=== PATIENT | female | born 1945 | race Caucasian/White ===

== ENCOUNTER 2016-07-25 07:47 | Day surgery (SDC) | payer MEDICARE, BC ==
[2016-07-20 15:54] VITALS: BMI 22.8
[~2016-07-25 07:47] MED LIST: LACTATED RINGERS 1,000 ML IV SCH; LIDOCAINE 1% 20 ML VIAL (10MG/ML) FOR IV START INTRADERMA PRN
[2016-07-25] MEDS ORDERED: LACTATED RINGERS 1,000 ML IV ONE (08:01)
[2016-07-25] MEDS ORDERED: LIDOCAINE 1% 20 ML VIAL (10MG/ML) FOR IV START INTRADERMA ONE (08:01)
[2016-07-25 08:07] VITALS: RESP 18; TEMP 98
[2016-07-25] MEDS ORDERED: PROPOFOL 10 MG/ML 20 ML VIAL IV ONE (08:59)
[2016-07-25] MEDS ORDERED: LIDOCAINE 1% INJ 10MG/ML (20 ML MDV) ONE (08:59)
--- NOTE | 2016-07-25 09:31 | P.PCN ---
Date of Procedure: 07/25/16 Procedure(s) Performed: Procedure: Total colonoscopy. Preoperative diagnosis: Screening for neoplasia, patient has history of polyps. Postoperative diagnosis: Left-sided diverticulosis with no evidence of acute diverticulitis, strictures, polyps or cancer. Preparation: HalfLytely prep. Sedation: Was provided by anesthesia. Brief clinical history: The patient is a 70-year-old female who is scheduled for this evaluation for screening for neoplasia because of history of polyps. Her last exam was around 5-1/2 years ago. The patient has no abdominal complaints, bleeding or anemia. Procedure: With the patient on her left lateral decubitus position and after informed consent and adequate sedation, the perianal area was inspected and it did not show any fissures or fistulas. There were no masses felt on digital rectal examination. The Olympus CFQ 160L video colonoscope was then inserted in the rectum in the usual fashion and advanced to the cecum. There were multiple diverticular orifices seen scattered in the sigmoid and left side with no evidence of acute diverticulitis or strictures. No polyps or tumors were seen. The mucosa appeared healthy. I retroflexed endoscope in the rectum before the endoscope was withdrawn. The patient tolerated the procedure well. Plan: The patient was reassured. Discussed dietary measures. She will follow- up with you as planned and I recommended repeat exam in 5 years.
[2016-07-25 09:54] VITALS: BP 129/75; PULSE 76
== END 2016-07-25 10:08 | disposition home or self-care (01) ==
LOC: ORWHC2ENDO 07:47
DX: Z12.11 Encounter for screening for malignant neoplasm of colon (principal); Z86.010 Personal history of colon polyps; K57.30 Diverticulosis of large intestine without perforation or abscess without bleeding; E78.5 Hyperlipidemia, unspecified; F17.200 Nicotine dependence, unspecified, uncomplicated; E07.9 Disorder of thyroid, unspecified; Z88.2 Allergy status to sulfonamides; Z88.8 Allergy status to other drugs, medicaments and biological substances; Z88.1 Allergy status to other antibiotic agents; Z91.041 Radiographic dye allergy status; Z79.899 Other long term (current) drug therapy
CPT/HCPCS: J2001; J2704; G0105

== ENCOUNTER → 2016-08-17 | Outpatient (CLI) | payer MEDICARE, BC ==
--- NOTE | 2016-08-17 12:43 | XR ---
EXAMINATION TYPE: XR bone survey complete DATE OF EXAM: 08/17/2016 12:04 PM COMPARISON: NONE HISTORY: 70-year-old female monoclonal gammopathy TECHNIQUE: 16 views. FINDINGS: Bony calvarium : 2 views of the bony calvarium demonstrate. Small lucencies within the anterior zoe rium suspected to represent prominent venous lakes. Cervical spine: Moderate spondylotic change mid cervical spine with grade 1 retrolisthesis at C4-C5 a nd C5-C6. No suspicious lytic lesion. Thoracic spine: 12 rib-bearing thoracic vertebral bodies. All pedicles are visualized. Moderate spond ylotic change mid to lower thoracic spine. Vertebral body heights are preserved. Lumbar spine: Moderate to advanced multilevel spondylotic change. Vertebral body heights are preserve d and alignment is maintained. CHEST: Lungs are clear. Heart is normal size. No suspicious clavicular or rib lesion identified. PELVIS: Single view of the pelvis demonstrates. Severe left and moderate right hip osteoarthrosis. N o suspicious punched-out lytic lesion. UPPER EXTREMITIES: Two views of the upper extremities. There is right greater than left AC joint oste oarthrosis and some degenerative change of the right glenohumeral joint and bony changes suggestive o f chronic rotator cuff tendinopathy on the right. No suspicious punched-out lytic lesion. LOWER EXTREMITIES: 2 views of the lower extremities. No suspicious punched out lytic lesion. There is bicompartmental osteoarthrosis at both knees with meniscal chondrocalcinosis that could be idiopathi c or reflect CPPD. IMPRESSION: There are some small lucencies within the anterior calvarium suspected to represent prominent venous lakes. No other suspicious lytic lesion seen on the bone survey. Follow-up can be performed.
== END ==
LOC: RADNMMAIN 10:18
PROVIDERS: ATTEND Internal Medicine Rheumatology
DX: D47.2 Monoclonal gammopathy (principal)
CPT/HCPCS: 77075

== ENCOUNTER → 2016-10-17 | Outpatient (CLI) | payer MEDICARE, BC ==
[2016-10-17 11:21] LABS: CH 30.4; CHCM 32.5; HCT 48.4 % (34.0-46.0); HDW 2.35; HGB 15.5 gm/dL (11.4-16.0); MCH 30.2 pg (25.0-35.0); MCV 94.3 fL (80.0-100.0); Mean Platelet Volume 6.8; RBC 5.13 m/uL (3.80-5.40); RDW 13.3 % (11.5-15.5); WBC 14.1 k/uL (3.8-10.6)
[2016-10-17 11:34] LABS: ALT 37 U/L (9-52); AST 20 U/L (14-36); Alkaline Phosphatase 119 U/L (38-126); Anion Gap 9 mmol/L; Blood Urea Nitrogen 18 mg/dL (7-17); Calcium 10.1 mg/dL (8.4-10.2); Carbon Dioxide 27 mmol/L (22-30); Chloride 104 mmol/L (98-107); Glucose 106 mg/dL (74-99); Non-African American GFR(MDRD) >60 (>60 ml/min/1.73 sqM); Potassium 3.9 mmol/L (3.5-5.1); Sodium 140 mmol/L (137-145); Total Bilirubin 0.7 mg/dL (0.2-1.3)
== END | disposition home or self-care (01) ==
LOC: LABWHC1 10:40
PROVIDERS: ATTEND Family Medicine
DX: E03.9 Hypothyroidism, unspecified (principal); R79.89 Other specified abnormal findings of blood chemistry
CPT/HCPCS: 36415; 80053; 83690; 84443; 84484; 85027; 87040

== ENCOUNTER → 2016-10-18 | Outpatient (CLI) | payer MEDICARE, BC ==
--- NOTE | 2016-10-18 15:09 | NM ---
EXAMINATION TYPE: NM bone 3 phase DATE OF EXAM: 10/18/2016 2:52 PM COMPARISON: NONE HISTORY: Monoclonal gammopathy. Triple phase bone scintigraphy was performed following the injection of27.5 mCi Tc 99m MDP. Immediat e images and 3.5 hours post injection images acquired. FINDINGS: Blood pool images are normal. Delayed images show increased uptake in the S1 vertebral body . There is diffuse increased uptake about the left hip and to a lesser extent the right hip. No other definite focal lesion is seen. IMPRESSION: 1. ABNORMAL ACTIVITY IN THE S1 VERTEBRAL BODY. 2. DEGENERATIVE ACTIVITY ABOUT THE HIPS, WORSE ON THE LEFT)
== END ==
LOC: RADNMMAIN 10:14
PROVIDERS: ATTEND Family Medicine
DX: M16.0 Bilateral primary osteoarthritis of hip (principal)
CPT/HCPCS: 78315; A9503

== ENCOUNTER → 2016-11-04 | Outpatient (CLI) | payer MEDICARE, BC ==
[2016-11-04 10:36] LABS: Basophils # (A) 0.1 k/uL (0-0.2); Basophils % (A) 0 %; CH 31.1; CHCM 33.8; Eosinophils # (A) 0.2 k/uL (0-0.7); Eosinophils % (A) 2 %; HCT 42.9 % (34.0-46.0); HDW 2.39; HGB 14.5 gm/dL (11.4-16.0); Luc # (Auto) 0.22; Luc % (Auto) 2; Lymphocytes % (A) 10 %; MCH 31.2 pg (25.0-35.0); MCHC 33.7 g/dL (31.0-37.0); MCV 92.5 fL (80.0-100.0); Mean Platelet Volume 6.7; Monocytes # (A) 0.4 k/uL (0-1.0); Monocytes % (A) 4 %; Neutrophils # (A) 8.8 k/uL (1.3-7.7); Neutrophils % (A) 83 %; RBC 4.64 m/uL (3.80-5.40); WBC 10.7 k/uL (3.8-10.6)
[2016-11-04 10:47] LABS: Blood Urea Nitrogen 12 mg/dL (7-17); Non-African American GFR(MDRD) >60 (>60 ml/min/1.73 sqM)
[2016-11-04 11:43] LABS: Erythrocyte Sedimentation Rate 22 mm/hr (0-20)
== END | disposition home or self-care (01) ==
LOC: LABWHC1 09:54
PROVIDERS: ATTEND Family Medicine
DX: M51.9 Unspecified thoracic, thoracolumbar and lumbosacral intervertebral disc disorder (principal); M16.9 Osteoarthritis of hip, unspecified; M85.50 Aneurysmal bone cyst, unspecified site; D72.829 Elevated white blood cell count, unspecified; A49.9 Bacterial infection, unspecified
CPT/HCPCS: 36415; 82565; 84520; 85025; 85652; 86141

== ENCOUNTER → 2016-11-07 | Outpatient (CLI) | payer MEDICARE, BC ==
--- NOTE | 2016-11-07 14:12 | CT ---
EXAMINATION TYPE: CT pelvis w con DATE OF EXAM: 11/07/2016 COMPARISON: Nuclear medicine triple phase bone scan October 18, 2016 HISTORY: Patient complains of low back pain with radiation bilaterally to the hips and legs. Patient also has unresolving infection of unknown location. CT DLP: 427.4 mGycm. Automated exposure control for dose reduction was used. CONTRAST: Performed with IV Contrast, patient injected with 100 mL of Omnipaque 300. FINDINGS: The S1 vertebral body scintigraphic finding of increased osteoblastic activity corresponds to areas o f sclerosis in the S1 vertebral body on the CT.. Is no cortical disruption. There is no associated so ft tissue mass. There is no increased density within the substance of the S1 vertebral body. However, there is CT evidence of generalized osteopenia, and the S1 vertebral body finding is consistent with mild osteopenic compression. The skeletal structures are otherwise unremarkable except for degenerative spine and hip changes. There are widespread nonaneurysmal atherosclerotic calcifications throughout the aortoiliac arterial anatomy. The visualized solid and hollow viscera are unremarkable, except for prominent sigmoid diverticulosis and moderate urinary bladder distention. IMPRESSION: CHANGES SUGGEST OSTEOPENIC COMPRESSION OF THE S1 VERTEBRAL BODY.
== END | disposition home or self-care (01) ==
LOC: RADCTMAIN 11-03 15:12
PROVIDERS: ATTEND Family Medicine
DX: M51.9 Unspecified thoracic, thoracolumbar and lumbosacral intervertebral disc disorder (principal); M16.9 Osteoarthritis of hip, unspecified; M85.80 Other specified disorders of bone density and structure, unspecified site
CPT/HCPCS: 72193; Q9967

== ENCOUNTER → 2017-06-12 | Outpatient (CLI) | payer MEDICARE, BC ==
--- NOTE | 2017-06-12 12:34 | XR ---
EXAMINATION TYPE: XR Hip Limited LT DATE OF EXAM: 06/12/2017 CLINICAL HISTORY: Severe left hip pain and low back pain with left-sided radiculopathy. TECHNIQUE: AP and frogleg views of the left hip are obtained. COMPARISON: None. FINDINGS: There is no acute fracture/dislocation evident in the left hip. There is advanced degenera tive change of the left femoral acetabular joint with beel-lx-[id number] articulation in a cephalad directi on and subchondral opposing surface sclerosis of both the acetabulum and femoral head. Femoral head m aintains a normal rounded contour without collapse. Large protuberant marginal osteophytes project fr om both the acetabular and femur. Osseous mineralization is within normal limits. IMPRESSION: 1. There is no acute fracture or dislocation in the left hip. 2. Extensive advanced arthropathy of the left femoral acetabular joint with [id number] articulation and subchondral sclerosis of both the femoral head and acetabulum without current femoral head colla pse.
--- NOTE | 2017-06-12 12:36 | XR ---
EXAMINATION TYPE: XR lumbar spine 2 or 3V DATE OF EXAM: 06/12/2017 CLINICAL HISTORY: Multiple myeloma with history of back pain and severe left hip pain radiating to th e lower extremity. TECHNIQUE: Frontal and lateral views of the lumbar spine were obtained. COMPARISON: None FINDINGS: There are 5 lumbar type vertebral bodies identified. The lumbar spine shows satisfactory alignment without evidence of acute fracture or dislocation. Moderate multilevel degenerative disc di sease is displayed is anterior osteophytes, intervertebral disc space narrowing, facet arthropathy, a nd endplate sclerosis. These changes are seen throughout the lumbar spine most exaggerated at the tho racolumbar junction and lumbosacral junction. Moderate to severe atherosclerosis is seen of the abdominal aorta. The overlying soft tissue appears unremarkable. Overlying bowel limits evaluation for lytic lesions of the pelvis and sacrum. No gross evidence of lytic lesion within the lumbar vertebrae. IMPRESSION: 1. No acute fracture or dislocation is seen in the lumbar spine. 2. Moderate multilevel degenerative change of the visualized thoracolumbar spine.
== END | disposition home or self-care (01) ==
LOC: RADXRMAIN 11:34
PROVIDERS: ATTEND Internal Medicine Hematology & Oncology
DX: M47.816 Spondylosis without myelopathy or radiculopathy, lumbar region (principal); M12.852 Other specific arthropathies, not elsewhere classified, left hip; M25.852 Other specified joint disorders, left hip; E78.5 Hyperlipidemia, unspecified; D47.2 Monoclonal gammopathy; M85.9 Disorder of bone density and structure, unspecified; M15.0 Primary generalized (osteo)arthritis
CPT/HCPCS: 72100; 73501

== ENCOUNTER → 2017-11-14 | Outpatient (CLI) | payer MEDICARE, BC ==
--- NOTE | 2017-11-16 14:00 | ECHOF ---
Referral Reason:R01.1 Heart Murmur MEASUREMENTS -------- HEIGHT: 157.5 cm WEIGHT: 56.2 kg BP: 110/73 RVIDd: 1.9 cm (< 3.3) IVSd: 0.8 cm (0.6 - 1.1) LVIDd: 3.9 cm (3.9 - 5.3) LVPWd: 0.8 cm (0.6 - 1.1) IVSs: 1.0 cm LVIDs: 2.8 cm LVPWs: 1.1 cm LAESV Index (A-L): 15.35 ml/m Ao Diam: 2.5 cm (2.0 - 3.7) AV Cusp: 1.8 cm (1.5 - 2.6) EPSS: 1.6 cm MV E Jc: 0.63 m/s MV DecT: 318 ms MV A Jc: 0.92 m/s MV E/A Ratio: 0.68 RAP: 5.00 mmHg RVSP: 21.79 mmHg MV EF SLOPE: 78.18 mm/s (70 - 150) MV EXCURSION: 1.43 cm (> 18.000) FINDINGS -------- Sinus rhythm. This was a technically good study. The left ventricular size is normal. Left ventricular wall thickness is normal. Overall left vent ricular systolic function is normal with, an EF between 55 - 60 %. The right ventricle is normal in size and function. Normal LA size by volume 22+/-6 ml/m2. The right atrium is normal in size. There is mild aortic valve sclerosis. There is no evidence of aortic regurgitation. There is no e vidence of aortic stenosis. AOV is possible Bicuspid. The mitral valve leaflets are mildly thickened. Mild mitral regurgitation is present. Trace tricuspid regurgitation present. Right ventricular systolic pressure is normal at < 35 mmHg. There is no evidence of pulmonary hypertension. Trace/mild (physiologic) pulmonic regurgitation. The aortic root size is normal. Normal inferior vena cava with normal inspiratory collapse consistent with estimated right atrial pre ssure of 5 mmHg. There is no pericardial effusion. CONCLUSIONS -------- 1. Sinus rhythm. 2. This was a technically good study. 3. The left ventricular size is normal. 4. Left ventricular wall thickness is normal. 5. Overall left ventricular systolic function is normal with, an EF between 55 - 60 %. 6. Normal LA size by volume 22+/-6 ml/m2. 7. There is mild aortic valve sclerosis. 8. AOV is possible Bicuspid. 9. The mitral valve leaflets are mildly thickened. 10. Mild mitral regurgitation is present. 11. Trace tricuspid regurgitation present. 12. Right ventricular systolic pressure is normal at < 35 mmHg. 13. There is no evidence of pulmonary hypertension. 14. Trace/mild (physiologic) pulmonic regurgitation. 15. The aortic root size is normal. 16. There is no pericardial effusion. PRESS HAND: Marcel Yañez RDCS
== END | disposition home or self-care (01) ==
LOC: RADECHMAIN 12:47
PROVIDERS: ATTEND Family Medicine
DX: I35.8 Other nonrheumatic aortic valve disorders (principal); I34.0 Nonrheumatic mitral (valve) insufficiency
CPT/HCPCS: 93306

== ENCOUNTER → 2017-12-21 | Outpatient (CLI) | payer MEDICARE, BC ==
--- NOTE | 2017-12-21 11:29 | US ---
EXAMINATION TYPE: US venous doppler duplex LE DATE OF EXAM: 12/21/2017 10:51 AM COMPARISON: NONE CLINICAL HISTORY: M79.662 Pain left low leg, M79.661 Pain Right leg. Bilat leg numbness, no h/o dvt SIDE PERFORMED: Bilateral TECHNIQUE: The lower extremity deep venous system is examined utilizing real time linear array sonog franklyn with graded compression, doppler sonography and color-flow sonography. VESSELS IMAGED: External Iliac Vein (EIV) Common Femoral Vein Deep Femoral Vein Greater Saphenous Vein * Femoral Vein Popliteal Vein Small Saphenous Vein * Proximal Calf Veins (* superficial vessels) Grayscale, color doppler, spectral doppler imaging performed of the deep veins of the lower extremiti es. There is normal flow, compressibility, vascular waveforms. Right Leg: Appears negative for DVT today Left Leg: Appears negative for DVT today bilateral venous of legs produced rouleaux flow, which made wall to wall color fill challenging. Macias d to use augment maneuver to obtain color fill. Veins were compressible throughout legs and waveforms of spontaneous flow was detected. tech findings of negative for DVT today but rouleaux flow was present given to voice mail of Itzel at Dr Sands's office. IMPRESSION: 1. No sonographic evidence of deep venous thrombosis within either lower extremity. 2. Rouleaux flow incidentally noted bilaterally that may be an incidental finding however this can be associated with connective tissue disorders, inflammatory disorders and diabetes.
== END | disposition home or self-care (01) ==
LOC: RADUSWWP 10:14
PROVIDERS: ATTEND Internal Medicine Hematology & Oncology
DX: R22.33 Localized swelling, mass and lump, upper limb, bilateral (principal)
CPT/HCPCS: 93970

== ENCOUNTER → 2018-01-03 | Outpatient (CLI) | payer MEDICARE, BC ==
[2018-01-03 11:33] LABS: Anion Gap 3 mmol/L; Blood Urea Nitrogen 14 mg/dL (7-17); Carbon Dioxide 30 mmol/L (22-30); Chloride 105 mmol/L (98-107); Potassium 4.7 mmol/L (3.5-5.1); Sodium 138 mmol/L (137-145)
== END | disposition home or self-care (01) ==
LOC: LABWHC1 10:34
PROVIDERS: ATTEND Internal Medicine Cardiovascular Disease
DX: R60.0 Localized edema (principal)
CPT/HCPCS: 36415; 80051; 82565; 84520

== ENCOUNTER 2018-03-04 23:31 | Emergency (ER) | payer MEDICARE, BC ==
--- NOTE | 2018-03-04 23:54 | ED ---
Extremity Problem HPI - General Chief complaint: Extremity Problem,Nontraumatic Stated complaint: Leg swelling Time Seen by Provider: 03/04/18 23:33 Source: patient Mode of arrival: EMS Limitations: no limitations - History of Present Illness Initial comments: Patient is a 72-year-old female who presents the emergency department today for evaluation of lower extremity edema. Patient reports that she's had edema in her lower extremities since the springtime, usually the left is worse with them the right. She has been evaluated with venous and arterial Dopplers with no acute findings. She reports that the edema waxes and wanes. She reports that today she noticed that her left knee appear to be swollen and she felt that she had worsening swelling in her left leg which prompted her to come to the ER for further evaluation. Patient has no known history of DVT or PE in the past. She is still smoker. She does report she had some mild wheezing earlier in the night but no chest pressure, pain, palpitations. She had no persistent shortness of breath. She has no complaints of shortness of breath upon arrival. - Related Data Home Medications Medication Instructions Recorded Confirmed Atorvastatin [Lipitor] 20 mg PO HS 01/11/14 07/25/16 Levothyroxine Sodium [Synthroid] 75 mcg PO DAILY 01/11/14 07/25/16 Calcium Carbonate/Vitamin D3 1 tab PO DAILY 02/21/16 07/25/16 [Os-Kenny 500-Vit D3 200 Caplet] Cholecalciferol [Vitamin D3] 5,000 unit PO DAILY 02/21/16 07/25/16 Glucosamine/Chondr Barillas A Sod [Osteo 1 tab PO DAILY 02/21/16 07/25/16 Bi-Flex Caplet] Loratadine [Claritin] 10 mg PO DAILY PRN 02/21/16 07/25/16 Meclizine [Antivert] 25 mg PO TID PRN 02/21/16 07/25/16 Celecoxib [CeleBREX] 200 mg PO DAILY 07/20/16 07/25/16 Cyclobenzaprine [Flexeril] 10 mg PO HS PRN 07/20/16 07/25/16 Diclofenac Sodium Gel [Voltaren 1 applic TOPICAL DAILY 07/20/16 07/25/16 Gel] Allergies Allergy/AdvReac Type Severity Reaction Status Date / Time cephalexin [From Keflex] Allergy Unknown Verified 03/04/18 23:49 Iodinated Contrast- Oral and Allergy Nausea & Verified 03/04/18 23:49 IV Dye Vomiting, [Iodinated Contrast Media - headache IV Dye] Latex, Natural Rubber Allergy Unknown Verified 03/04/18 23:49 sulfamethoxazole Allergy Rash/Hives Verified 03/04/18 23:49 [From Bactrim] trimethoprim [From Bactrim] Allergy Rash/Hives Verified 03/04/18 23:49 ciprofloxacin [From Cipro] AdvReac severe Verified 03/04/18 23:49 constipation methocarbamol [From Robaxin] AdvReac dizzy Verified 03/04/18 23:49 Review of Systems ROS Statement: Those systems with pertinent positive or pertinent negative responses have been documented in the HPI. ROS Other: All systems not noted in ROS Statement are negative. Past Medical History Past Medical History: Hyperlipidemia, Rheumatoid Arthritis (RA), Thyroid Disorder Additional Past Medical History / Comment(s): osteoporosis History of Any Multi-Drug Resistant Organisms: None Reported Past Surgical History: Appendectomy, Hysterectomy Past Anesthesia/Blood Transfusion Reactions: Motion Sickness Past Psychological History: No Psychological Hx Reported Smoking Status: Current every day smoker Past Alcohol Use History: None Reported Past Drug Use History: None Reported - Past Family History Mother Family Medical History: Cancer Father Family Medical History: Cancer General Exam - General Exam Comments Initial Comments: GENERAL: Chronically ill-appearing with skin and nail changes consistent with tobacco abuse HENT: Normocephalic, Atraumatic. EYES: PERRL PULMONARY: Unlabored respirations. Good breath sounds bilaterally. No audible rales rhonchi or wheezing was noted. CARDIOVASCULAR: There is a regular rate and rhythm without any murmurs gallops or rubs. ABDOMEN: Soft and nontender with normal bowel sounds. SKIN: Skin is clear with no lesions or rashes and otherwise unremarkable. NEUROLOGIC: Patient is alert and oriented x3. Cranial nerves II through XII are grossly intact. Motor and sensory are also intact. Normal speech, volume and content. Symmetrical smile. MUSCULOSKELETAL: Normal extremities with adequate strength and full range of motion. Bilateral lower extremities with 1+ pretibial pitting edema, left knee effusion , no erythema or warmth, no evidence of septic joint LYMPHATICS: No significant lymphadenopathy is noted PSYCHIATRIC: Normal psychiatric evaluation. Limitations: no limitations Limitations: no limitations Course Vital Signs 03/04/18 23:41 Temperature 98.7 F Pulse Rate 87 Respiratory 18 Rate Blood Pressure 134/65 O2 Sat by Pulse 99 Oximetry Medical Decision Making - Medical Decision Making The patient was seen and evaluated, history was obtained from the patient Physical exam with bilateral lower extremity edema, left maybe slightly more than the right Left knee effusion no evidence of septic joint, full range of motion without pain Patient very anxious because she has an upcoming left hip surgery wanted to be evaluated Labs and imaging ordered Labs and no significant abnormalities noted Venous Dopplers with no evidence of acute DVT Results were discussed with patient expresses relief. All questions pertaining to care were answered the best my ability. Patient was advised to follow-up with her primary care physician as well as her orthopedic surgeon for reevaluation. Return parameters were discussed. Patient was discharged home in stable condition. - Lab Data Result diagrams: 03/05/18 00:15 03/05/18 00:15 Lab Results 03/05/18 03/05/18 03/05/18 Range/Units 00:15 00:15 00:15 WBC 9.9 (3.8-10.6) k/uL RBC 4.67 (3.80-5.40) m/uL Hgb 14.2 (11.4-16.0) gm/dL Hct 42.8 (34.0-46.0) % MCV 91.6 (80.0-100.0) fL MCH 30.4 (25.0-35.0) pg MCHC 33.2 (31.0-37.0) g/dL RDW 12.8 (11.5-15.5) % Plt Count 285 (150-450) k/uL Neutrophils % 77 % Lymphocytes % 14 % Monocytes % 5 % Eosinophils % 2 % Basophils % 1 % Neutrophils # 7.6 (1.3-7.7) k/uL Lymphocytes # 1.4 (1.0-4.8) k/uL Monocytes # 0.5 (0-1.0) k/uL Eosinophils # 0.2 (0-0.7) k/uL Basophils # 0.1 (0-0.2) k/uL PT (9.0-12.0) sec INR (<1.2) APTT (22.0-30.0) sec D-Dimer (<0.60) mg/L FEU Sodium 136 L (137-145) mmol/L Potassium 4.1 (3.5-5.1) mmol/L Chloride 109 H (98-107) mmol/L Carbon Dioxide 26 (22-30) mmol/L Anion Gap 1 mmol/L BUN 21 H (7-17) mg/dL Creatinine 0.65 (0.52-1.04) mg/dL Est GFR (CKD-EPI)AfAm >90 (>60 ml/min/1.73 sqM) Est GFR (CKD-EPI)NonAf 88 (>60 ml/min/1.73 sqM) Glucose 99 (74-99) mg/dL Calcium 9.4 (8.4-10.2) mg/dL Magnesium 1.8 (1.6-2.3) mg/dL Total Bilirubin 0.3 (0.2-1.3) mg/dL AST 25 (14-36) U/L ALT 29 (9-52) U/L Alkaline Phosphatase 82 (38-126) U/L Total Creatine Kinase 113 (30-135) U/L CK-MB (CK-2) 5.2 H (0.0-2.4) ng/mL CK-MB (CK-2) Rel Index 4.6 Troponin I 0.019 (0.000-0.034) ng/mL NT-Pro-B Natriuret Pep pg/mL Total Protein 4.7 L (6.3-8.2) g/dL Albumin 2.5 L (3.5-5.0) g/dL 03/05/18 03/05/18 Range/Units 00:15 00:15 WBC (3.8-10.6) k/uL RBC (3.80-5.40) m/uL Hgb (11.4-16.0) gm/dL Hct (34.0-46.0) % MCV (80.0-100.0) fL MCH (25.0-35.0) pg MCHC (31.0-37.0) g/dL RDW (11.5-15.5) % Plt Count (150-450) k/uL Neutrophils % % Lymphocytes % % Monocytes % % Eosinophils % % Basophils % % Neutrophils # (1.3-7.7) k/uL Lymphocytes # (1.0-4.8) k/uL Monocytes # (0-1.0) k/uL Eosinophils # (0-0.7) k/uL Basophils # (0-0.2) k/uL PT 9.5 (9.0-12.0) sec INR 1.0 (<1.2) APTT 20.8 L (22.0-30.0) sec D-Dimer 0.59 (<0.60) mg/L FEU Sodium (137-145) mmol/L Potassium (3.5-5.1) mmol/L Chloride (98-107) mmol/L Carbon Dioxide (22-30) mmol/L Anion Gap mmol/L BUN (7-17) mg/dL Creatinine (0.52-1.04) mg/dL Est GFR (CKD-EPI)AfAm (>60 ml/min/1.73 sqM) Est GFR (CKD-EPI)NonAf (>60 ml/min/1.73 sqM) Glucose (74-99) mg/dL Calcium (8.4-10.2) mg/dL Magnesium (1.6-2.3) mg/dL Total Bilirubin (0.2-1.3) mg/dL AST (14-36) U/L ALT (9-52) U/L Alkaline Phosphatase (38-126) U/L Total Creatine Kinase (30-135) U/L CK-MB (CK-2) (0.0-2.4) ng/mL CK-MB (CK-2) Rel Index Troponin I (0.000-0.034) ng/mL NT-Pro-B Natriuret Pep 274 pg/mL Total Protein (6.3-8.2) g/dL Albumin (3.5-5.0) g/dL Disposition Clinical Impression: Lower extremity edema Disposition: HOME SELF-CARE Condition: Good Instructions: Leg Edema (ED) Is patient prescribed a controlled substance at d/c from ED?: No Referrals: Alycia Salas MD [Primary Care Provider] - 1-2 days
[2018-03-05 00:30] LABS: Basophils # (A) 0.1 k/uL (0-0.2); Basophils % (A) 1 %; Eosinophils # (A) 0.2 k/uL (0-0.7); Eosinophils % (A) 2 %; HCT 42.8 % (34.0-46.0); HGB 14.2 gm/dL (11.4-16.0); Lymphocytes # (A) 1.4 k/uL (1.0-4.8); Lymphocytes % (A) 14 %; MCH 30.4 pg (25.0-35.0); MCHC 33.2 g/dL (31.0-37.0); MCV 91.6 fL (80.0-100.0); Mean Platelet Volume 7.2; Monocytes # (A) 0.5 k/uL (0-1.0); Monocytes % (A) 5 %; Neutrophils # (A) 7.6 k/uL (1.3-7.7); Neutrophils % (A) 77 %; Platelet Count 285 k/uL (150-450); RBC 4.67 m/uL (3.80-5.40); RDW 12.8 % (11.5-15.5); WBC 9.9 k/uL (3.8-10.6)
[2018-03-05 00:40] LABS: ALT 29 U/L (9-52); AST 25 U/L (14-36); Albumin 2.5 g/dL (3.5-5.0); Alkaline Phosphatase 82 U/L (38-126); Anion Gap 1 mmol/L; Blood Urea Nitrogen 21 mg/dL (7-17); Calcium 9.4 mg/dL (8.4-10.2); Carbon Dioxide 26 mmol/L (22-30); Chloride 109 mmol/L (98-107); Glucose 99 mg/dL (74-99); Magnesium 1.8 mg/dL (1.6-2.3); Potassium 4.1 mmol/L (3.5-5.1); Sodium 136 mmol/L (137-145); Total Bilirubin 0.3 mg/dL (0.2-1.3); Total Protein 4.7 g/dL (6.3-8.2)
[2018-03-05 00:51] LABS: D-Dimer 0.59 mg/L FEU (<0.60); Prothrombin Time 9.5 sec (9.0-12.0)
[2018-03-05 01:03] LABS: Creatine Kinase MB 5.2 ng/mL (0.0-2.4); Troponin I 0.019 ng/mL (0.000-0.034)
--- NOTE | 2018-03-05 01:05 | US ---
EXAMINATION TYPE: US venous doppler duplex LE BI DATE OF EXAM: 03/04/2018 11:51 PM COMPARISON: NONE CLINICAL HISTORY: Pain. Edema SIDE PERFORMED: Bilateral TECHNIQUE: The lower extremity deep venous system is examined utilizing real time linear array sonog franklyn with graded compression, doppler sonography and color-flow sonography. VESSELS IMAGED: External Iliac Vein (EIV) Common Femoral Vein Deep Femoral Vein Greater Saphenous Vein * Femoral Vein Popliteal Vein Small Saphenous Vein * Proximal Calf Veins (* superficial vessels) Right Leg: Negative for DVT Left Leg: Negative for DVT No evidence of DVT bilateral legs. IMPRESSION: No evidence of deep venous thrombosis.
[2018-03-05 01:20] LABS: Partial Thromboplastin Time 20.8 sec (22.0-30.0)
--- NOTE | 2018-03-05 01:37 | XR ---
EXAMINATION TYPE: XR chest 2V DATE OF EXAM: 03/05/2018 COMPARISON: 01/11/2014 HISTORY: Leg edema. Chest pain TECHNIQUE: Frontal and lateral views of the chest are obtained. FINDINGS: Heart and mediastinum are normal. Lungs are clear. Diaphragm is normal. Bony thorax is int act. IMPRESSION: No active cardiopulmonary disease. Normal heart. No adverse change.
[2018-03-05 02:06] VITALS: BP 113/57; PULSE 100; RESP 16; TEMP 97.7
== END 2018-03-05 02:37 | disposition home or self-care (01) ==
LOC: EC 23:31
DX: R60.0 Localized edema (principal); M25.462 Effusion, left knee; E78.5 Hyperlipidemia, unspecified; M06.9 Rheumatoid arthritis, unspecified; E07.9 Disorder of thyroid, unspecified; F17.200 Nicotine dependence, unspecified, uncomplicated; Z90.49 Acquired absence of other specified parts of digestive tract; Z90.710 Acquired absence of both cervix and uterus; Z79.1 Long term (current) use of non-steroidal anti-inflammatories (NSAID); Z79.899 Other long term (current) drug therapy; Z88.1 Allergy status to other antibiotic agents; Z88.2 Allergy status to sulfonamides; Z88.8 Allergy status to other drugs, medicaments and biological substances; Z91.040 Latex allergy status; Z91.041 Radiographic dye allergy status
CPT/HCPCS: 36415; 71046; 80053; 82550; 82553; 83735; 83880; 84484; 85025; 85379; 85610; 85730; 93005; 93970; 99284

== ENCOUNTER → 2018-04-01 | Outpatient (CLI) | payer MEDICARE, BC ==
[2018-04-01 11:52] LABS: Appearance,Urine Clear (Clear); Bacteria,Urine Occasional /hpf; Bilirubin,Urine Negative (Negative); Blood,Urine Small (Negative); Color,Urine Light Yellow; Glucose,Urine (UA) Negative (Negative); Ketones,Urine Negative (Negative); Leukocyte Esterase,Urine Negative (Negative); Nitrite,Urine Negative (Negative); Protein,Urine 2+ (Negative); RBC,Urine 3 /hpf (0-5); Specific Gravity,Urine 1.005 (1.001-1.035); Squamous Epithelial Cell,Urine 2 /hpf (0-4); Urobilinogen,Urine <2.0 mg/dL (<2.0)
[2018-04-01 12:06] LABS: HCT 45.5 % (34.0-46.0); HGB 15.2 gm/dL (11.4-16.0); MCH 30.9 pg (25.0-35.0); MCHC 33.5 g/dL (31.0-37.0); MCV 92.3 fL (80.0-100.0); Mean Platelet Volume 7.7; Platelet Count 311 k/uL (150-450); RBC 4.93 m/uL (3.80-5.40); RDW 13.2 % (11.5-15.5); WBC 10.9 k/uL (3.8-10.6)
[2018-04-01 16:21] LABS: Vitamin D 25 Hydroxy 26.7 ng/mL (30.0-100.0)
[2018-04-01 16:25] LABS: Iron Saturation 29.03 (12.00-45.00)
[2018-04-01 16:35] LABS: Albumin 3.1 g/dL (3.80-4.90); Albumin/Globulin Ratio 2.21 (1.20-2.10); Anion Gap 3.9 mmol/L (4.00-12.00); Calcium 9.3 mg/dL (8.7-10.3); Carbon Dioxide 30.1 mmol/L (21.6-31.8); Globulin 1.4 g/dL (2.1-3.7); Magnesium 1.6 mg/dL (1.5-2.4); Phosphorus 3.8 mg/dL (2.4-5.1); Potassium 4.3 mmol/L (3.5-5.5); Total Bilirubin 0.3 mg/dL (0.3-1.2); Total Protein 4.5 g/dL (6.2-8.2); Uric Acid 6.2 mg/dL (2.9-7.7)
[2018-04-01 18:10] LABS: Parathyroid Hormone Intact 10.8 pg/mL (14.0-72.0)
[2018-04-01 18:18] LABS: DNA Double-Stranded NEGATIVE (NEGATIVE)
[2018-04-01 19:08] LABS: Hepatitis A Antibody IgM Non-Reactive (Non-Reactive); Hepatitis B Core IgM Non-Reactive (Non-Reactive)
[2018-04-01 19:09] LABS: Total Volume 24 Hour,Urine 2000 mL
[2018-04-01 19:37] LABS: Creatinine,Urine Random 16.1 mg/dL
[2018-04-01 19:41] LABS: Total Protein,Urine Random 199.1 mg/dL (0.0-13.5)
[2018-04-02 14:24] LABS: C-ANCA <1:20 Titer (<1:20); P-ANCA <1:20 Titer (<1:20)
== END ==
LOC: LABWHC1 10:32
PROVIDERS: ATTEND Internal Medicine
DX: D64.9 Anemia, unspecified (principal); E55.9 Vitamin D deficiency, unspecified; E21.3 Hyperparathyroidism, unspecified; R53.83 Other fatigue; R80.9 Proteinuria, unspecified
CPT/HCPCS: 36415; 80053; 80074; 81001; 81050; 82306; 82570; 82728; 83516; 83540; 83550; 83735; 83970; 84100; 84156; 84550; 85027; 86038; 86160; 86162; 86225; 86255; 86334

== ENCOUNTER 2018-04-12 12:52 | Inpatient (IN) | payer MEDICARE, BC ==
[2018-04-12 14:47] LABS: Basophils % (A) 0 %; Eosinophils # (A) 0.2 k/uL (0-0.7); Eosinophils % (A) 1 %; HCT 47.8 % (34.0-46.0); HGB 16.4 gm/dL (11.4-16.0); Lymphocytes # (A) 1.9 k/uL (1.0-4.8); Lymphocytes % (A) 14 %; MCH 31.6 pg (25.0-35.0); MCHC 34.2 g/dL (31.0-37.0); MCV 92.3 fL (80.0-100.0); Mean Platelet Volume 6.8; Monocytes # (A) 0.6 k/uL (0-1.0); Monocytes % (A) 5 %; Neutrophils # (A) 11.2 k/uL (1.3-7.7); Neutrophils % (A) 79 %; Platelet Count 305 k/uL (150-450); RBC 5.18 m/uL (3.80-5.40); RDW 13.2 % (11.5-15.5); WBC 14.1 k/uL (3.8-10.6)
[2018-04-12] MEDS ORDERED: SODIUM CHLORIDE 0.9% 500 ML 500 ML IV STA (14:47)
[2018-04-12 14:57] LABS: ALT 47 U/L (9-52); AST 28 U/L (14-36); Albumin 2.5 g/dL (3.5-5.0); Alkaline Phosphatase 88 U/L (38-126); Anion Gap 1 mmol/L; Blood Urea Nitrogen 21 mg/dL (7-17); Calcium 8.8 mg/dL (8.4-10.2); Carbon Dioxide 30 mmol/L (22-30); Chloride 105 mmol/L (98-107); Glucose 105 mg/dL (74-99); Potassium 3.9 mmol/L (3.5-5.1); Sodium 136 mmol/L (137-145); Total Bilirubin 0.3 mg/dL (0.2-1.3); Total Protein 4.9 g/dL (6.3-8.2)
--- NOTE | 2018-04-12 15:02 | XR ---
EXAMINATION TYPE: XR chest 2V DATE OF EXAM: 04/12/2018 COMPARISON: Chest x-ray March 05, 2018. HISTORY: History of hypotension with bilateral leg swelling TECHNIQUE: Frontal and lateral views of the chest are obtained. FINDINGS: Clothing artifact overlies the bilateral supraclavicular region. Slightly elevated left hem idiaphragm is redemonstrated. There is no focal air space opacity, pleural effusion, or pneumothorax seen. The cardiac silhouette size is within normal limits. The osseous structures are intact. IMPRESSION: No acute cardiopulmonary process. No significant change from prior.
[2018-04-12 15:04] LABS: INR 0.9 (<1.2); Prothrombin Time 9.4 sec (9.0-12.0)
[2018-04-12 15:14] LABS: Creatine Kinase MB 3.7 ng/mL (0.0-2.4)
[2018-04-12 15:20] LABS: Partial Thromboplastin Time 19.7 sec (22.0-30.0)
[2018-04-12 15:21] LABS: Troponin I 0.055 ng/mL (0.000-0.034)
--- NOTE | 2018-04-12 15:32 | ED ---
General Adult HPI <JacksonAiden - Last Filed: 04/12/18 16:17> - General Source: patient, RN notes reviewed Mode of arrival: wheelchair Limitations: no limitations <Dc Ann - Last Filed: 04/12/18 16:26> - General Chief complaint: Extremity Problem,Nontraumatic Stated complaint: bilat leg swelling Time Seen by Provider: 04/12/18 14:00 - History of Present Illness Initial comments: Patient 72-year-old female presents emergency room today with a chief complaint of right lateral leg swelling. Patient does admit that she has been having leg swelling since September 2017. She does admit that it seems to be getting worse. She states been consistent over the last month. Patient does move the family physician earlier today and was advised come here to the emergency room for further evaluation. They recommended ultrasound of the kidneys. Patient does admit that over the last 3 days she's had some symptoms of diarrhea. She states it seems to be better today. Patient states that she was worried about being dehydrated. Denies any other complaints or symptoms currently. Patient denies any recent fever, chills, shortness of breath, chest pain, back pain, nausea or vomiting, numbness or tingling, dysuria or hematuria, constipation, headaches or visual changes, or any other complaints. (Dc Ann) - Related Data Home Medications Medication Instructions Recorded Confirmed Levothyroxine Sodium [Synthroid] 75 mcg PO DAILY 01/11/14 04/12/18 Cholecalciferol [Vitamin D3] 5,000 unit PO MOWEFR 02/21/16 04/12/18 Glucosamine/Chondr Barillas A Sod [Osteo 1 tab PO MOWEFR 02/21/16 04/12/18 Bi-Flex Caplet] Loratadine [Claritin] 10 mg PO DAILY PRN 02/21/16 04/12/18 Meclizine [Antivert] 25 mg PO TID PRN 02/21/16 04/12/18 Diclofenac Sodium Gel [Voltaren 1 applic TOPICAL DAILY 07/20/16 04/12/18 Gel] Acetaminophen Tab [Tylenol Tab] 500 - 1,000 mg PO Q6HR PRN 04/12/18 04/12/18 Atorvastatin [Lipitor] 40 mg PO HS 04/12/18 04/12/18 Furosemide [Lasix] 20 mg PO BID 04/12/18 04/12/18 Meloxicam [Mobic] 7.5 mg PO DAILY 04/12/18 04/12/18 Potassium Chloride [Klor-Con 10] 20 meq PO DAILY 04/12/18 04/12/18 Allergies Allergy/AdvReac Type Severity Reaction Status Date / Time cephalexin [From Keflex] Allergy Unknown Verified 04/12/18 14:22 Iodinated Contrast- Oral and Allergy Nausea & Verified 04/12/18 14:22 IV Dye Vomiting, [Iodinated Contrast Media - headache IV Dye] Latex, Natural Rubber Allergy Unknown Verified 04/12/18 14:22 sulfamethoxazole Allergy Rash/Hives Verified 04/12/18 14:22 [From Bactrim] trimethoprim [From Bactrim] Allergy Rash/Hives Verified 04/12/18 14:22 cefdinir AdvReac Unknown Verified 04/12/18 14:22 ciprofloxacin [From Cipro] AdvReac severe Verified 04/12/18 14:22 constipation methocarbamol [From Robaxin] AdvReac dizzy Verified 04/12/18 14:22 Sulfa (Sulfonamide AdvReac Unknown Verified 04/12/18 14:22 Antibiotics) Review of Systems ROS Other: All systems not noted in ROS Statement are negative. <Aiden Paz - Last Filed: 04/12/18 16:17> ROS Other: All systems not noted in ROS Statement are negative. <Dc Ann - Last Filed: 04/12/18 16:26> ROS Statement: Those systems with pertinent positive or pertinent negative responses have been documented in the HPI. Past Medical History Past Medical History: Cancer, Hyperlipidemia, Osteoarthritis (OA), Thyroid Disorder Additional Past Medical History / Comment(s): osteoporosis, MULTIPLE MYELOMA History of Any Multi-Drug Resistant Organisms: None Reported Past Surgical History: Appendectomy, Hysterectomy Past Anesthesia/Blood Transfusion Reactions: Motion Sickness Past Psychological History: No Psychological Hx Reported Smoking Status: Current every day smoker Past Alcohol Use History: None Reported Past Drug Use History: None Reported - Past Family History Mother Family Medical History: Cancer Father Family Medical History: Cancer <Dc Ann - Last Filed: 04/12/18 16:26> General Exam <Aiden Paz - Last Filed: 04/12/18 16:17> Limitations: no limitations <Dc Ann - Last Filed: 04/12/18 16:26> - General Exam Comments Initial Comments: General: The patient is awake and alert, in no distress, and does not appear acutely ill. Eye: Pupils are equal, round and reactive to light. Extra-ocular movements are intact. No nystagmus. There is normal conjunctiva bilaterally. No signs of icterus. Ears, nose, mouth and throat: There are moist mucous membranes and no oral lesions. Neck: The neck is supple, there is no tenderness or JVD. Cardiovascular: There is a regular rate and rhythm. No murmur, rub or gallop is appreciated. Respiratory: Lungs are clear to auscultation, respirations are non-labored, breath sounds are equal. No wheezes, stridor, rales, or rhonchi. Gastrointestinal: Soft, non-distended, non-tender abdomen without masses or organomegaly noted. There is no rebound or guarding present. No CVA tenderness. Musculoskeletal: Normal ROM, no tenderness. Sensation intact. Strength 5/5. Pulses equal bilaterally 2+. 2+ pitting edema bilaterally. Neurological: A&O x 3. CN II-XII intact, There are no obvious motor or sensory deficits. Coordination appears grossly intact. Speech is normal. Skin: Skin is warm and dry and no rashes or lesions are noted. Psychiatric: Cooperative, appropriate mood & affect, normal judgment. (Dc Ann) Course <Aiden Paz - Last Filed: 04/12/18 16:17> <Dc Ann - Last Filed: 04/12/18 16:26> Vital Signs 04/12/18 13:30 Temperature 98.3 F Pulse Rate 95 Respiratory 16 Rate Blood Pressure 118/76 O2 Sat by Pulse 99 Oximetry - Reevaluation(s) Reevaluation #1: 04/12/18 16:17 PA supervision: I proceeded [id number] evaluation the patient including a brief history and physical patient having peripheral edema for the past 5 months she was seen in her doctor's office today and sent here for further evaluation was found on evaluation in addition to the peripheral edema no definite calf tenderness. She did have elevated troponin however. She will be admitted with cardiology consultation due to her history of multiple myeloma Dr. Sands will be consulted also. I did discuss case Dr. Pedraza (Aiden Paz) EKG Findings - EKG Comments: EKG Findings:: EKG performed at 1440: Shows normal sinus rhythm at 83 beats per minute. GA interval 128. QRS 80. QT/QTC 378/444. No acute changed. <Dc nAn - Last Filed: 04/12/18 16:26> Medical Decision Making - Lab Data Result diagrams: 04/12/18 14:20 04/12/18 14:20 <Aiden Paz - Last Filed: 04/12/18 16:17> - Lab Data Result diagrams: 04/12/18 14:20 04/12/18 14:20 <Dc Ann - Last Filed: 04/12/18 16:26> - Medical Decision Making Patient's labs been reviewed does show 14,000 white count. BNP 650. Troponin mildly elevated at 0.055. EKG showing no acute changes. Patient's chest x-ray unremarkable. Ultrasound of the kidneys and bladder shows a right renal cyst. Patient will be admitted to the hospital with consult to Dr. tsai for history of multiple myeloma and consult cardiology. (Dc Ann) - Lab Data Lab Results 04/12/18 04/12/18 04/12/18 Range/Units 14:20 14:20 14:20 WBC 14.1 H (3.8-10.6) k/uL RBC 5.18 (3.80-5.40) m/uL Hgb 16.4 H (11.4-16.0) gm/dL Hct 47.8 H (34.0-46.0) % MCV 92.3 (80.0-100.0) fL MCH 31.6 (25.0-35.0) pg MCHC 34.2 (31.0-37.0) g/dL RDW 13.2 (11.5-15.5) % Plt Count 305 (150-450) k/uL Neutrophils % 79 % Lymphocytes % 14 % Monocytes % 5 % Eosinophils % 1 % Basophils % 0 % Neutrophils # 11.2 H (1.3-7.7) k/uL Lymphocytes # 1.9 (1.0-4.8) k/uL Monocytes # 0.6 (0-1.0) k/uL Eosinophils # 0.2 (0-0.7) k/uL Basophils # 0.0 (0-0.2) k/uL PT (9.0-12.0) sec INR (<1.2) APTT (22.0-30.0) sec Sodium 136 L (137-145) mmol/L Potassium 3.9 (3.5-5.1) mmol/L Chloride 105 (98-107) mmol/L Carbon Dioxide 30 (22-30) mmol/L Anion Gap 1 mmol/L BUN 21 H (7-17) mg/dL Creatinine 0.74 (0.52-1.04) mg/dL Est GFR (CKD-EPI)AfAm >90 (>60 ml/min/1.73 sqM) Est GFR (CKD-EPI)NonAf 81 (>60 ml/min/1.73 sqM) Glucose 105 H (74-99) mg/dL Calcium 8.8 (8.4-10.2) mg/dL Total Bilirubin 0.3 (0.2-1.3) mg/dL AST 28 (14-36) U/L ALT 47 (9-52) U/L Alkaline Phosphatase 88 (38-126) U/L Total Creatine Kinase 78 (30-135) U/L CK-MB (CK-2) 3.7 H (0.0-2.4) ng/mL CK-MB (CK-2) Rel Index 4.7 Troponin I 0.055 H* (0.000-0.034) ng/mL NT-Pro-B Natriuret Pep pg/mL Total Protein 4.9 L (6.3-8.2) g/dL Albumin 2.5 L (3.5-5.0) g/dL Urine Color Urine Appearance (Clear) Urine pH (5.0-8.0) Ur Specific [place] (1.001-1.035) Urine Protein (Negative) Urine Glucose (UA) (Negative) Urine Ketones (Negative) Urine Blood (Negative) Urine Nitrite (Negative) Urine Bilirubin (Negative) Urine Urobilinogen (<2.0) mg/dL Ur Leukocyte Esterase (Negative) Urine RBC (0-5) /hpf Urine WBC (0-5) /hpf Ur Squamous Epith Cells (0-4) /hpf 04/12/18 04/12/18 04/12/18 Range/Units 14:20 14:20 15:21 WBC (3.8-10.6) k/uL RBC (3.80-5.40) m/uL Hgb (11.4-16.0) gm/dL Hct (34.0-46.0) % MCV (80.0-100.0) fL MCH (25.0-35.0) pg MCHC (31.0-37.0) g/dL RDW (11.5-15.5) % Plt Count (150-450) k/uL Neutrophils % % Lymphocytes % % Monocytes % % Eosinophils % % Basophils % % Neutrophils # (1.3-7.7) k/uL Lymphocytes # (1.0-4.8) k/uL Monocytes # (0-1.0) k/uL Eosinophils # (0-0.7) k/uL Basophils # (0-0.2) k/uL PT 9.4 (9.0-12.0) sec INR 0.9 (<1.2) APTT 19.7 L (22.0-30.0) sec Sodium (137-145) mmol/L Potassium (3.5-5.1) mmol/L Chloride (98-107) mmol/L Carbon Dioxide (22-30) mmol/L Anion Gap mmol/L BUN (7-17) mg/dL Creatinine (0.52-1.04) mg/dL Est GFR (CKD-EPI)AfAm (>60 ml/min/1.73 sqM) Est GFR (CKD-EPI)NonAf (>60 ml/min/1.73 sqM) Glucose (74-99) mg/dL Calcium (8.4-10.2) mg/dL Total Bilirubin (0.2-1.3) mg/dL AST (14-36) U/L ALT (9-52) U/L Alkaline Phosphatase (38-126) U/L Total Creatine Kinase (30-135) U/L CK-MB (CK-2) (0.0-2.4) ng/mL CK-MB (CK-2) Rel Index Troponin I (0.000-0.034) ng/mL NT-Pro-B Natriuret Pep 651 pg/mL Total Protein (6.3-8.2) g/dL Albumin (3.5-5.0) g/dL Urine Color Light Yellow Urine Appearance Clear (Clear) Urine pH 6.0 (5.0-8.0) Ur Specific [place] 1.007 (1.001-1.035) Urine Protein 3+ H (Negative) Urine Glucose (UA) Negative (Negative) Urine Ketones Negative (Negative) Urine Blood Moderate H (Negative) Urine Nitrite Negative (Negative) Urine Bilirubin Negative (Negative) Urine Urobilinogen <2.0 (<2.0) mg/dL Ur Leukocyte Esterase Negative (Negative) Urine RBC 5 (0-5) /hpf Urine WBC 8 H (0-5) /hpf Ur Squamous Epith Cells 1 (0-4) /hpf Disposition <Aiden Paz - Last Filed: 04/12/18 16:17> Is patient prescribed a controlled substance at d/c from ED?: No Time of Disposition: 16:26 <Dc Ann - Last Filed: 04/12/18 16:26> Clinical Impression: Elevated troponin, Leg swelling Disposition: ADMITTED IP TO THIS HOSP Condition: Stable Referrals: Alycia Salas MD [Primary Care Provider] - 1-2 days
[2018-04-12 15:46] LABS: Appearance,Urine Clear (Clear); Bilirubin,Urine Negative (Negative); Blood,Urine Moderate (Negative); Color,Urine Light Yellow; Glucose,Urine (UA) Negative (Negative); Ketones,Urine Negative (Negative); Leukocyte Esterase,Urine Negative (Negative); Nitrite,Urine Negative (Negative); Protein,Urine 3+ (Negative); RBC,Urine 5 /hpf (0-5); Specific Gravity,Urine 1.007 (1.001-1.035); Squamous Epithelial Cell,Urine 1 /hpf (0-4); Urobilinogen,Urine <2.0 mg/dL (<2.0)
[2018-04-12] MEDS ORDERED: ASPIRIN 81 MG PO STA (16:02)
--- NOTE | 2018-04-12 16:12 | US ---
EXAMINATION TYPE: US kidneys/renal and bladder DATE OF EXAM: 04/12/2018 COMPARISON: CT CLINICAL HISTORY: Pain; HX of multiple myeloma; proteinuria per patient EXAM MEASUREMENTS: Right Kidney: 10.0 x 5.6 x 4.4 cm Left Kidney: 10.3 x 4.8 x 6.3 cm Post Void Residual Volume: 2.6 mL Right Kidney: small simple cyst seen laterally = 0.4 x 0.3 x 0.3cm Left Kidney: No hydronephrosis or masses seen Bladder: imaged at post void as EC patient just provided urine for UA. Bilateral Jets seen: NA Normal Post Void Residual: yes There is no evidence for hydronephrosis at this point in time. No nephrolithiasis is seen. IMPRESSION: Right renal cyst.
[2018-04-12] MEDS ORDERED: NITROGLYCERIN SL TABS 0.4 MG TAB SUBLINGUAL PRN (16:26)
[2018-04-12] MEDS ORDERED: SODIUM CHLORIDE 0.9% 1,000 ML IV ONE (16:26)
[2018-04-12] MEDS ORDERED: ACETAMINOPHEN TAB 500 MG TAB PO STA (17:04)
--- NOTE | 2018-04-12 20:20 | P.CONS ---
History of Present Illness - Reason for Consult Consult date: 04/12/18 Monoclonal gammopathy, nephrotic syndrome - History of Present Illness The patient is a 72-year-old lady with multiple medical issues. 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 The patient had lambda light chain elevation. She had an extensive evaluation at the time, with workup indicating a smoldering myeloma condition, with bone marrow involvement with monoclonal plasma cells in the range of 10-20%, but no evidence of end organ damage or bone lesions. The patient was therefore followed with observation, with no evidence of progression until 12/12. The patient had developed issues with lower except the swelling and discomfort around -11/12. Initially this was uncomfortable but not very severe and not associated with other symptoms. The patient had evaluation with cardiology, and vascular surgery which were negative. During her routine follow -up visit in late 03/14 in the office, she complained of progressive increase in lower extremity swelling, increasing discomfort in her legs, as well as other systemic symptoms like progressive weakness, decreased appetite and weight loss. The patient had repeat protein electrophoresis studies done, which showed some increase in lambda light chain to about 50 mg/dL, versus 30- 35 mg/dL. Her creatinine, calcium, as well as blood counts remain normal. She had 24-hour urine done which were nephrotic range proteinuria, with total protein in the range of 6-7 g in 24 hours. While there was increase in serum light chain, by itself this was not very specific given the amount of increase, as well as normal CBC and chem panel. It is therefore not clear if the development of nephrotic syndrome was due to deposition of light chains in the kidney from progression of her myeloma itself , or due to other etiologies. 24-hour urine for quantitative light chains was ordered. The first sample was sent to [facility], and then onto reference labs, but they ended up not performing the requested tests. Therefore a repeat sample was sent in to [facility] on 04/05/18, but has not been resulted yet. In the meantime as the patient was having some progressive symptoms, she was given a bolus of Decadron 40 mg a day for 4 days, from 04/05-04/08. The patient states that she did not notice much improvement with the steroids , but at least no worsening. Legs continue to remain quite swollen heavy. About 2 days ago the patient developed diarrhea, with further decrease in appetite. Her daughter noted drops in blood pressure, and progressive weakness with dizziness as well as periods of confusion. She was therefore sent in to the hospital. Labs revealed mildly elevated troponin. She was therefore admitted for further management. Review of Systems Constitutional: Reports fatigue, Reports lethargy, Reports malaise, Reports poor appetite, Reports weakness, Reports weight gain Eyes: denies blurred vision, denies pain Ears: deny: decreased hearing, ear discharge, earache, tinnitus Ears, nose, mouth and throat: Denies headache, Denies sore throat Cardiovascular: Reports dyspnea on exertion Respiratory: Reports dyspnea Gastrointestinal: Reports diarrhea, Reports nausea Genitourinary: Denies dysuria, Denies hematuria Menstruation: Reports postmenopausal Musculoskeletal: Reports as per HPI, Reports muscle cramps, Reports muscle weakness, Reports shooting leg pain Integumentary: Denies pruritus, Denies rash Neurological: Reports change in mentation, Reports weakness Psychiatric: Reports anxiety Endocrine: Reports fatigue, Reports weight change Hematologic/Lymphatic: Reports as per HPI, Reports lymphedema Past Medical History Past Medical History: Cancer, Hyperlipidemia, Osteoarthritis (OA), Thyroid Disorder Additional Past Medical History / Comment(s): osteoporosis, MULTIPLE MYELOMA History of Any Multi-Drug Resistant Organisms: None Reported Past Surgical History: Appendectomy, Hysterectomy Past Anesthesia/Blood Transfusion Reactions: Motion Sickness Past Psychological History: No Psychological Hx Reported Smoking Status: Current every day smoker Past Alcohol Use History: None Reported Past Drug Use History: None Reported - Past Family History Mother Family Medical History: Cancer Father Family Medical History: Cancer Medications and Allergies Home Medications Medication Instructions Recorded Confirmed Type Levothyroxine Sodium [Synthroid] 75 mcg PO DAILY 01/11/14 04/12/18 History Cholecalciferol [Vitamin D3] 5,000 unit PO MOWEFR 02/21/16 04/12/18 History Glucosamine/Chondr Barillas A Sod [Osteo 1 tab PO MOWEFR 02/21/16 04/12/18 History Bi-Flex Caplet] Loratadine [Claritin] 10 mg PO DAILY PRN 02/21/16 04/12/18 History Meclizine [Antivert] 25 mg PO TID PRN 02/21/16 04/12/18 History Diclofenac Sodium Gel [Voltaren 1 applic TOPICAL DAILY 07/20/16 04/12/18 History Gel] Acetaminophen Tab [Tylenol Tab] 500 - 1,000 mg PO Q6HR PRN 04/12/18 04/12/18 History Atorvastatin [Lipitor] 40 mg PO HS 04/12/18 04/12/18 History Furosemide [Lasix] 20 mg PO BID 04/12/18 04/12/18 History Meloxicam [Mobic] 7.5 mg PO DAILY 04/12/18 04/12/18 History Potassium Chloride [Klor-Con 10] 20 meq PO DAILY 04/12/18 04/12/18 History Allergies Allergy/AdvReac Type Severity Reaction Status Date / Time cephalexin [From Keflex] Allergy Unknown Verified 04/12/18 14:22 Iodinated Contrast- Oral and Allergy Nausea & Verified 04/12/18 14:22 IV Dye Vomiting, [Iodinated Contrast Media - headache IV Dye] Latex, Natural Rubber Allergy Unknown Verified 04/12/18 14:22 sulfamethoxazole Allergy Rash/Hives Verified 04/12/18 14:22 [From Bactrim] trimethoprim [From Bactrim] Allergy Rash/Hives Verified 04/12/18 14:22 cefdinir AdvReac Unknown Verified 04/12/18 14:22 ciprofloxacin [From Cipro] AdvReac severe Verified 04/12/18 14:22 constipation methocarbamol [From Robaxin] AdvReac dizzy Verified 04/12/18 14:22 Sulfa (Sulfonamide AdvReac Unknown Verified 04/12/18 14:22 Antibiotics) Physical Exam Vitals: Vital Signs Temp Pulse Resp BP Pulse Ox 04/12/18 13:30 98.3 F 95 16 118/76 99 Intake and Output 04/12/18 04/12/18 04/12/18 06:59 14:59 22:59 Other: Weight 58.06 kg - Constitutional General appearance: no acute distress - EENT Eyes: EOMI, PERRLA ENT: hearing grossly normal, normal oropharynx - Neck Neck: no lymphadenopathy Thyroid: bilateral: normal size - Respiratory Respiratory: bilateral: CTA - Cardiovascular Rhythm: regular Heart sounds: normal: S1, S2 - Gastrointestinal General gastrointestinal: normal bowel sounds, soft - Integumentary Integumentary: normal - Neurologic Neurologic: CNII-XII intact - Musculoskeletal 2+ bilateral lower extremity edema with significantly increased leg circumference Musculoskeletal: generalized weakness, strength equal bilaterally - Psychiatric Psychiatric: A&O x's 3, appropriate affect Results CBC & Chem 7: 04/12/18 14:20 04/12/18 14:20 Labs: Abnormal Lab Results - Last 24 Hours (Table) 04/12/18 04/12/18 04/12/18 Range/Units 14:20 14:20 14:20 WBC 14.1 H (3.8-10.6) k/uL Hgb 16.4 H (11.4-16.0) gm/dL Hct 47.8 H (34.0-46.0) % Neutrophils # 11.2 H (1.3-7.7) k/uL APTT (22.0-30.0) sec Sodium 136 L (137-145) mmol/L BUN 21 H (7-17) mg/dL Glucose 105 H (74-99) mg/dL CK-MB (CK-2) 3.7 H (0.0-2.4) ng/mL Troponin I 0.055 H* (0.000-0.034) ng/mL Total Protein 4.9 L (6.3-8.2) g/dL Albumin 2.5 L (3.5-5.0) g/dL Urine Protein (Negative) Urine Blood (Negative) Urine WBC (0-5) /hpf 04/12/18 04/12/18 Range/Units 14:20 15:21 WBC (3.8-10.6) k/uL Hgb (11.4-16.0) gm/dL Hct (34.0-46.0) % Neutrophils # (1.3-7.7) k/uL APTT 19.7 L (22.0-30.0) sec Sodium (137-145) mmol/L BUN (7-17) mg/dL Glucose (74-99) mg/dL CK-MB (CK-2) (0.0-2.4) ng/mL Troponin I (0.000-0.034) ng/mL Total Protein (6.3-8.2) g/dL Albumin (3.5-5.0) g/dL Urine Protein 3+ H (Negative) Urine Blood Moderate H (Negative) Urine WBC 8 H (0-5) /hpf Chest x-ray: report reviewed US - abdomen: report reviewed Assessment and Plan (1) Nephrotic syndrome Narrative/Plan: The patient's progressive lower except the swelling, as well as other associated systemic symptoms are likely due to this. However at this time the definite cause of the nephrotic syndrome is not known. The patient has been seen by nephrology. 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 Progression, with light chain deposition is one of the major differentials, but the clinical picture is not totally specific as a change in light chain is not very marked, and there has been no abnormality in her calcium , creatinine, or CBC. Therefore 24-hour urine for light chain quantitation was ordered to try to determine the etiology better. If this had shown a large amount of light chain, then this would essentially confirmed light chain deposition and myeloma progression. In that case the patient could start treatment for myeloma with a repeat bone marrow done for staging. She would then not require a kidney biopsy. However if the quantitation did not reveal a major amount of light chains, then she would need a kidney biopsy to rule out other causes. Unfortunately we still do not have the results yet despite ordering the test times to a different labs because of the reference lab doing only urine protein electrophoresis and not the quantitation despite the latter tests being ordered clearly. In fact can also come indicated directly with the reference labs by phone. The case was discussed with pathology today, who contacted the reference lab directly. They were informed that the order for the quantitation had been received today! (Reference Lab had been called directly 3 days ago, and had stated that they would run the quantitation and have results available today) The pathologist reported that she had been told that the results from be available by 04/15/18 The above was discussed with the patient and her daughter in detail. The patient is understandably reluctant to do another 24-hour urine and wait for the results. Therefore, if we do not have results on 04/12/18, I will plan on doing a bone marrow aspiration biopsy and proceeding according to those results. I did consider repeating her bolus of steroids as she has had the required 4 day break after the initial bolus. However given increase in troponin at this point we will hold off until acute cardiac injury and ruled out Current Visit: Yes Status: Acute Code(s): N04.9 - NEPHROTIC SYNDROME WITH UNSPECIFIED MORPHOLOGIC CHANGES SNOMED Code(s): 31368762 (2) Monoclonal gammopathy Narrative/Plan: The patient's poor overall prognosis is actually in the range of asymptomatic/ smoldering myeloma with concerns for progression at this time. Diagnostic circumstances and plan as noted in detail in the HPI and above. Current Visit: Yes Status: Acute Code(s): D47.2 - MONOCLONAL GAMMOPATHY SNOMED Code(s): 643592601 (3) Elevated troponin Narrative/Plan: Await further troponins and evaluation to rule out acute cardiac injury. This may be a minor leak, due to hypertension from intravascular volume depletion. Current Visit: Yes Status: Acute Code(s): R74.8 - ABNORMAL LEVELS OF OTHER SERUM ENZYMES SNOMED Code(s): 648519212 (4) Dehydration Narrative/Plan: The patient has significant fluid retention. However this is third spacing, we will nephrotic syndrome. She is intravascularly volume depleted. All ablation was likely worsened by recent diarrhea which led to her other symptoms of hypertension, and mental status changes. This is a primary differential for her troponin leak also. The patient was advised that she will need to maintain hydration, despite the lower extremity swelling because despite total body fluid overload, she is actually intravascularly depleted due to her protein loss Current Visit: Yes Status: Acute Code(s): E86.0 - DEHYDRATION SNOMED Code( s): 81085862 Plan: 4 to the admitting service and other consultants for management of her other medical problems.
[2018-04-12] MEDS: FUROSEMIDE 20 MG TAB PO SCH (20:40)
[2018-04-12] MEDS: traMADol 50 MG TAB PO PRN (20:42)
[2018-04-12] MEDS: ATORVASTATIN 40 MG TAB PO SCH (20:43)
[2018-04-12 21:55] LABS: Creatine Kinase MB 2.7 ng/mL (0.0-2.4)
[2018-04-12 22:00] LABS: Troponin I 0.048 ng/mL (0.000-0.034)
[2018-04-13] MEDS: traMADol 50 MG TAB PO PRN ×2 (03:03→09:01)
[2018-04-13 03:56] LABS: Cholesterol 205 mg/dL (<200); HDL Cholesterol 64 mg/dL (40-60); LDL Cholesterol,Calculated 118 mg/dL (0-99); Triglycerides 116 mg/dL (<150)
[2018-04-13 04:20] LABS: Creatine Kinase MB 2.4 ng/mL (0.0-2.4)
[2018-04-13 04:41] LABS: Troponin I 0.057 ng/mL (0.000-0.034)
[2018-04-13] MEDS: LEVOTHYROXINE 75 MCG TAB PO SCH (05:52)
[2018-04-13] MEDS ORDERED: CALCIUM CARBONATE 500 MG CHEWABLE PO PRN (08:23)
[2018-04-13] MEDS ORDERED: PANTOPRAZOLE 40 MG TABLET PO SCH (08:30)
[2018-04-13] MEDS: MELOXICAM 7.5 MG TAB PO SCH (08:55)
[2018-04-13] MEDS: FUROSEMIDE 20 MG TAB PO SCH (08:55)
[2018-04-13] MEDS: ASPIRIN 325 MG TAB PO SCH (08:55)
--- NOTE | 2018-04-13 10:52 | P.NPCON ---
History of Present Illness - Reason for Consult proteinuria - History of Present Illness Reason for consultation: Proteinuria History of present illness: Patient is a 72-year-old female seen in renal consultation for proteinuria. Patient was seen by me outpatient and was noted to have nephrotic range proteinuria. GFR is at baseline. Creatinine 0.74 today. Patient's serologic workup was negative except for significantly elevated lambda light chains. She is being worked up for multiple myeloma progression by oncology. Hemodynamically she stable. Patient states her blood pressure was in the systolic 90s and she was having persistent swelling in her lower extremity is. A DVT was ruled out about a month ago. Patient's been having swelling for the last few months. She is maintained on Lasix 20 mg twice daily at this time. Oral intake is poor. Albumin level is 2.5. No vomiting or diarrhea. Denies chest pain or shortness of breath. Feels weak. Denies use of NSAIDs. Vital signs are stable. General: The patient appeared well nourished and normally developed. HEENT: Head exam is unremarkable. Neck is without jugular venous distension. LUNGS: Lungs are clear to auscultation and percussion. Breath sounds decreased. HEART: Rate and Rhythm are regular. First and second heart sounds normal. No murmurs, rubs or gallops. ABDOMEN: Abdominal exam reveals normal bowel sounds. Non-tender and non- distended. No evidence of peritonitis. EXTREMITITES: 1+ edema. Past Medical History Past Medical History: Cancer, Hyperlipidemia, Osteoarthritis (OA), Thyroid Disorder Additional Past Medical History / Comment(s): osteoporosis, MULTIPLE MYELOMA History of Any Multi-Drug Resistant Organisms: None Reported Past Surgical History: Appendectomy, Hysterectomy Past Anesthesia/Blood Transfusion Reactions: Motion Sickness Past Psychological History: No Psychological Hx Reported Smoking Status: Current every day smoker Past Alcohol Use History: None Reported Past Drug Use History: None Reported - Past Family History Mother Family Medical History: Cancer Father Family Medical History: Cancer Medications and Allergies Home Medications Medication Instructions Recorded Confirmed Type Levothyroxine Sodium [Synthroid] 75 mcg PO DAILY 01/11/14 04/12/18 History Cholecalciferol [Vitamin D3] 5,000 unit PO MOWEFR 02/21/16 04/12/18 History Glucosamine/Chondr Barillas A Sod [Osteo 1 tab PO MOWEFR 02/21/16 04/12/18 History Bi-Flex Caplet] Loratadine [Claritin] 10 mg PO DAILY PRN 02/21/16 04/12/18 History Meclizine [Antivert] 25 mg PO TID PRN 02/21/16 04/12/18 History Diclofenac Sodium Gel [Voltaren 1 applic TOPICAL DAILY 07/20/16 04/12/18 History Gel] Acetaminophen Tab [Tylenol Tab] 500 - 1,000 mg PO Q6HR PRN 04/12/18 04/12/18 History Atorvastatin [Lipitor] 40 mg PO HS 04/12/18 04/12/18 History Furosemide [Lasix] 20 mg PO BID 04/12/18 04/12/18 History Meloxicam [Mobic] 7.5 mg PO DAILY 04/12/18 04/12/18 History Potassium Chloride [Klor-Con 10] 20 meq PO DAILY 04/12/18 04/12/18 History Allergies Allergy/AdvReac Type Severity Reaction Status Date / Time cephalexin [From Keflex] Allergy Unknown Verified 04/12/18 14:22 Iodinated Contrast- Oral and Allergy Nausea & Verified 04/12/18 14:22 IV Dye Vomiting, [Iodinated Contrast Media - headache IV Dye] Latex, Natural Rubber Allergy Unknown Verified 04/12/18 14:22 sulfamethoxazole Allergy Rash/Hives Verified 04/12/18 14:22 [From Bactrim] trimethoprim [From Bactrim] Allergy Rash/Hives Verified 04/12/18 14:22 cefdinir AdvReac Unknown Verified 04/12/18 14:22 ciprofloxacin [From Cipro] AdvReac severe Verified 04/12/18 14:22 constipation methocarbamol [From Robaxin] AdvReac dizzy Verified 04/12/18 14:22 Sulfa (Sulfonamide AdvReac Unknown Verified 04/12/18 14:22 Antibiotics) Physical Exam Vitals: Vital Signs Temp Pulse Pulse Resp BP BP Pulse Ox 04/13/18 08:00 97.8 F 68 16 108/54 98 04/13/18 05:49 80 16 107/70 98 04/13/18 04:00 97.8 F 74 18 100/48 97 04/13/18 00:00 97.8 F 67 16 101/54 98 04/12/18 20:18 97.8 F 78 18 90/59 98 04/12/18 20:00 90 18 99/51 04/12/18 18:00 101/69 04/12/18 17:30 108/63 98 18 17:00 120/63 93 L 04/12/18 16:45 90 18 98 18 16:30 116/57 98 04/12/18 16:00 90/72 99 04/12/18 15:30 115/69 99 04/12/18 15:22 98 04/12/18 13:30 98.3 F 95 16 118/76 99 Intake and Output 04/12/18 04/13/18 04/13/18 22:59 06:59 14:59 Intake Total 120 Balance 120 Intake: Oral 120 Other: Voiding Method Toilet Toilet # Voids 1 1 Weight 58.06 kg 58.4 kg Results - Lab Results Most recent lab results Calcium 8.8 mg/dL (8.4-10.2) 04/12/18 14:20 04/12/18 14:20 04/12/18 14:20 Assessment and Plan Plan: Assessment: 1. Nephrotic range proteinuria most likely secondary to multiple myeloma. Patient's noted to have elevated lambda light chains. Serologic workup has been negative. 2. Lower extremity edema secondary to proteinuria and hyperlipidemia. 3. Hypothyroidism maintained on levothyroxine. Plan: Decrease Lasix to 20 mg daily. Encourage protein intake. Add ensure 3 times daily. Await confirmatory for multiple myeloma. If the pending workup is not suggestive of multiple myeloma, then will proceed with kidney biopsy. Thank you for the consultation. I will continue to follow the patient with you during her hospital stay.
[2018-04-13 12:39] LABS: ALT 37 U/L (9-52); AST 26 U/L (14-36); Albumin 2.2 g/dL (3.5-5.0); Alkaline Phosphatase 74 U/L (38-126); Anion Gap -2 mmol/L; Basophils % (A) 0 %; Blood Urea Nitrogen 17 mg/dL (7-17); Calcium 8.6 mg/dL (8.4-10.2); Carbon Dioxide 29 mmol/L (22-30); Chloride 106 mmol/L (98-107); Eosinophils # (A) 0.1 k/uL (0-0.7); Eosinophils % (A) 1 %; Glucose 114 mg/dL (74-99); HCT 43.9 % (34.0-46.0); HGB 14.1 gm/dL (11.4-16.0); Lymphocytes # (A) 1.5 k/uL (1.0-4.8); Lymphocytes % (A) 10 %; MCHC 32.2 g/dL (31.0-37.0); MCV 93.4 fL (80.0-100.0); Mean Platelet Volume 6.9; Monocytes # (A) 0.5 k/uL (0-1.0); Monocytes % (A) 3 %; Neutrophils # (A) 12.9 k/uL (1.3-7.7); Neutrophils % (A) 85 %; Platelet Count 327 k/uL (150-450); Potassium 4.2 mmol/L (3.5-5.1); RDW 13.1 % (11.5-15.5); Sodium 133 mmol/L (137-145); Total Bilirubin 0.3 mg/dL (0.2-1.3); Total Protein 4.3 g/dL (6.3-8.2); WBC 15.1 k/uL (3.8-10.6)
[2018-04-13 13:01] VITALS: BMI 23.5
[2018-04-13 13:32] LABS: Troponin I 0.064 ng/mL (0.000-0.034)
--- NOTE | 2018-04-13 13:50 | P.HPIM ---
History of Present Illness H&P Date: 04/13/18 Breana Collins is a 72-year-old female who presented to [facility] emergency room with multiple vague complaints of severe fatigue bilateral lower extremity edema and some mental status changes with lethargy, she has known history of monoclonal gammopathy, being followed by hematology to evaluate for multiple myeloma, she also has known history of nephrotic syndrome followed by nephrology, she has hypoalbuminemia and has significant lower extremity edema bilaterally, she was evaluated for possible DVT and that was ruled out in the last 30 days, patient condition worsened gradually and family decided to bring her to emergency room, she was evaluated in the ER and had evidence of elevated troponin levels she was admitted to medical floor, cardiology, nephrology and hematology consultation were requested. Patient was seen and examined at this time she is alert and oriented 3 her mental status has improved since presentation, there is no fever or chills no headache or dizziness no chest pain no shortness of breath no cough no palpitation no nausea or vomiting no abdominal pain no diarrhea and no urinary symptoms, she has significant bilateral lower extremity edema, she has significant generalized weakness without any focal deficits. Past Medical History Past Medical History: Cancer, Hyperlipidemia, Osteoarthritis (OA), Thyroid Disorder Additional Past Medical History / Comment(s): osteoporosis, MULTIPLE MYELOMA History of Any Multi-Drug Resistant Organisms: None Reported Past Surgical History: Appendectomy, Hysterectomy Past Anesthesia/Blood Transfusion Reactions: Motion Sickness Past Psychological History: No Psychological Hx Reported Smoking Status: Current every day smoker Past Alcohol Use History: None Reported Past Drug Use History: None Reported - Past Family History Mother Family Medical History: Cancer Father Family Medical History: Cancer Medications and Allergies Home Medications Medication Instructions Recorded Confirmed Type Levothyroxine Sodium [Synthroid] 75 mcg PO DAILY 01/11/14 04/12/18 History Cholecalciferol [Vitamin D3] 5,000 unit PO MOWEFR 02/21/16 04/12/18 History Glucosamine/Chondr Barillas A Sod [Osteo 1 tab PO MOWEFR 02/21/16 04/12/18 History Bi-Flex Caplet] Loratadine [Claritin] 10 mg PO DAILY PRN 02/21/16 04/12/18 History Meclizine [Antivert] 25 mg PO TID PRN 02/21/16 04/12/18 History Diclofenac Sodium Gel [Voltaren 1 applic TOPICAL DAILY 02/23/17 11/16/18 History Gel] Acetaminophen Tab [Tylenol Tab] 500 - 1,000 mg PO Q6HR PRN 04/12/18 04/12/18 History Atorvastatin [Lipitor] 40 mg PO HS 04/12/18 04/12/18 History Furosemide [Lasix] 20 mg PO BID 04/12/18 04/12/18 History Meloxicam [Mobic] 7.5 mg PO DAILY 04/12/18 04/12/18 History Potassium Chloride [Klor-Con 10] 20 meq PO DAILY 04/12/18 04/12/18 History Allergies Allergy/AdvReac Type Severity Reaction Status Date / Time cephalexin [From Keflex] Allergy Unknown Verified 04/12/18 14:22 Iodinated Contrast- Oral and Allergy Nausea & Verified 04/12/18 14:22 IV Dye Vomiting, [Iodinated Contrast Media - headache IV Dye] Latex, Natural Rubber Allergy Unknown Verified 04/12/18 14:22 sulfamethoxazole Allergy Rash/Hives Verified 04/12/18 14:22 [From Bactrim] trimethoprim [From Bactrim] Allergy Rash/Hives Verified 04/12/18 14:22 cefdinir AdvReac Unknown Verified 04/12/18 14:22 ciprofloxacin [From Cipro] AdvReac severe Verified 04/12/18 14:22 constipation methocarbamol [From Robaxin] AdvReac dizzy Verified 04/12/18 14:22 Sulfa (Sulfonamide AdvReac Unknown Verified 04/12/18 14:22 Antibiotics) Physical Exam Vitals: Vital Signs Temp Pulse Pulse Resp BP BP Pulse Ox 04/13/18 12:00 97.9 F 72 16 113/61 97 04/13/18 08:00 97.8 F 68 16 108/54 98 04/13/18 05:49 80 16 107/70 98 04/13/18 04:00 97.8 F 74 18 100/48 97 04/13/18 00:00 97.8 F 67 16 101/54 98 04/12/18 20:18 97.8 F 78 18 90/59 98 04/12/18 20:00 90 18 99/51 04/12/18 18:00 101/69 04/12/18 17:30 108/63 98 11/16/18 17:00 120/63 93 L 11/16/18 16:45 90 18 98 04/12/18 16:30 116/57 98 04/12/18 16:00 90/72 99 04/12/18 15:30 115/69 99 04/12/18 15:22 98 Intake and Output 04/12/18 04/13/18 04/13/18 22:59 06:59 14:59 Intake Total 582 Balance 582 Intake: Oral 582 Other: Voiding Method Toilet Toilet Toilet # Voids 1 1 1 Weight 58.06 kg 58.4 kg 58.4 kg In general patient is alert and oriented 3 in no apparent distress HEENT head normocephalic and atraumatic Neck is supple no JVD no goiter no lymphadenopathy Chest exam reveals a few scattered crackles bilaterally no wheezing Cardiac exam reveals regular heart sounds S1 and S2 no gallops no murmurs Abdomen is soft nontender no organomegaly with normal bowel sounds Extremity exam reveals 2+ edema no cyanosis or clubbing Neurological examination reveals generalized weakness without any gross focal deficit Results CBC & Chem 7: 04/13/18 11:48 04/13/18 11:48 Labs: Abnormal Lab Results - Last 24 Hours (Table) 04/12/18 04/12/18 04/12/18 Range/Units 14:20 14:20 14:20 WBC 14.1 H (3.8-10.6) k/uL Hgb 16.4 H (11.4-16.0) gm/dL Hct 47.8 H (34.0-46.0) % Neutrophils # 11.2 H (1.3-7.7) k/uL APTT (22.0-30.0) sec Sodium 136 L (137-145) mmol/L BUN 21 H (7-17) mg/dL Glucose 105 H (74-99) mg/dL CK-MB (CK-2) 3.7 H (0.0-2.4) ng/mL Troponin I 0.055 H* (0.000-0.034) ng/mL Total Protein 4.9 L (6.3-8.2) g/dL Albumin 2.5 L (3.5-5.0) g/dL Cholesterol (<200) mg/dL LDL Cholesterol, Calc (0-99) mg/dL HDL Cholesterol (40-60) mg/dL Urine Protein (Negative) Urine Blood (Negative) Urine WBC (0-5) /hpf 04/12/18 04/12/18 04/12/18 Range/Units 14:20 15:21 20:50 WBC (3.8-10.6) k/uL Hgb (11.4-16.0) gm/dL Hct (34.0-46.0) % Neutrophils # (1.3-7.7) k/uL APTT 19.7 L (22.0-30.0) sec Sodium (137-145) mmol/L BUN (7-17) mg/dL Glucose (74-99) mg/dL CK-MB (CK-2) 2.7 H (0.0-2.4) ng/mL Troponin I 0.048 H* (0.000-0.034) ng/mL Total Protein (6.3-8.2) g/dL Albumin (3.5-5.0) g/dL Cholesterol (<200) mg/dL LDL Cholesterol, Calc (0-99) mg/dL HDL Cholesterol (40-60) mg/dL Urine Protein 3+ H (Negative) Urine Blood Moderate H (Negative) Urine WBC 8 H (0-5) /hpf 04/13/18 04/13/18 04/13/18 Range/Units 02:53 02:53 11:48 WBC 15.1 H (3.8-10.6) k/uL Hgb (11.4-16.0) gm/dL Hct (34.0-46.0) % Neutrophils # 12.9 H (1.3-7.7) k/uL APTT (22.0-30.0) sec Sodium (137-145) mmol/L BUN (7-17) mg/dL Glucose (74-99) mg/dL CK-MB (CK-2) (0.0-2.4) ng/mL Troponin I 0.057 H* (0.000-0.034) ng/mL Total Protein (6.3-8.2) g/dL Albumin (3.5-5.0) g/dL Cholesterol 205 H (<200) mg/dL LDL Cholesterol, Calc 118 H (0-99) mg/dL HDL Cholesterol 64 H (40-60) mg/dL Urine Protein (Negative) Urine Blood (Negative) Urine WBC (0-5) /hpf 04/13/18 04/13/18 Range/Units 11:48 11:48 WBC (3.8-10.6) k/uL Hgb (11.4-16.0) gm/dL Hct (34.0-46.0) % Neutrophils # (1.3-7.7) k/uL APTT (22.0-30.0) sec Sodium 133 L (137-145) mmol/L BUN (7-17) mg/dL Glucose 114 H (74-99) mg/dL CK-MB (CK-2) 3.0 H (0.0-2.4) ng/mL Troponin I 0.064 H* (0.000-0.034) ng/mL Total Protein 4.3 L (6.3-8.2) g/dL Albumin 2.2 L (3.5-5.0) g/dL Cholesterol (<200) mg/dL LDL Cholesterol, Calc (0-99) mg/dL HDL Cholesterol (40-60) mg/dL Urine Protein (Negative) Urine Blood (Negative) Urine WBC (0-5) /hpf Microbiology - Last 24 Hours (Table) 04/12/18 15:21 Urine Culture - Preliminary Urine,Voided Thrombosis Risk Factor Assmnt - Choose All That Apply Each Risk Factor Represents 2 Points: Age 61-74 years Thrombosis Risk Factor Assessment Total Risk Factor Score: 2 Thrombosis Risk Factor Assessment Level: Low Risk Assessment and Plan Plan: #1 generalized fatigue and weakness #2 nephrotic syndrome #3 hypoalbuminemia #4 dehydration #5 monoclonal gammopathy, hematology in evaluating for multiple myeloma #6 elevated troponin level At this time plan is to increase protein intake Awaiting input from cardiology regarding elevated troponin levels Awaiting input from nephrology and oncology Will follow closely, recheck labs in a.m.
--- NOTE | 2018-04-13 14:50 | P.CRDCN ---
History of Present Illness History of present illness: This is a pleasant 72-year-old female past medical history significant for multiple myeloma, dyslipidemia, hypothyroidism and chronic nicotine dependence. She follows with Dr. Richardson in the office. We have been asked to see her in consultation secondary to abnormal troponin lower extremity edema. She states she started approximately 3-4 days ago having diarrhea. This went on pretty steadily for 3 days and then started to develop the better. However yesterday her daughter is at her house and noticed she was starting to become increasingly weak, confused and unable to get around on her own. She worked in the hospital for evaluation. She has also been suffering with lower extremity edema that has been investigated by cardiology as well as vascular surgery. It was determined that the lower extremity edema was not related to any sort of heart failure. She underwent an echocardiogram and a stress test in the office over the summer. She had a Lexiscan stress test that was negative for stress induced cardiac ischemia with ejection fraction of 82%. She denies ever having had any symptoms of chest discomfort, shortness of breath , dizziness or palpitations. She denies PND, orthopnea, cough or fever or chills. Blood pressures have been running on the lower side since admission, presumed secondary to dehydration. EKG reveals sinus mechanism with no acute ST or T wave abnormalities noted. Chest x-ray is negative for an acute cardiopulmonary process. Laboratory data reviewed, WBC 15.1, hemoglobin 14.1, platelets 327, sodium 133, potassium 4.2, creatinine 0.62, cardiac enzymes 0.045, 0.03, 0.057 0.064. Anti- proBNP 651, LDL 118 and HDL 64. Albumin noted to be 2.5. Current cardiac medications include atorvastatin 40 mg daily, Lasix 20 mg twice a day and potassium supplementation. At the time of my exam: CONSTITUTIONAL: Denies fever. Denies chills. EYES: Denies blurred vision. Denies vision changes. Denies eye pain. EARS, NOSE, MOUTH & THROAT: Denies headache. Denies sore throat. Denies ear pain. CARDIOVASCULAR: Denies chest pain. Denies shortness of breath. Denies orthopnea. Denies PND. Denies palpitations. RESPIRATORY: Denies cough. GASTROINTESTINAL: Denies abdominal pain. Denies diarrhea. Denies constipation. Denies nausea. Denies vomiting. MUSCULOSKELETAL: Denies myalgias. INTEGUMENTARY: Denies pruitis. Denies rash. NEUROLOGIC: Denies numbness. Denies tingling. Denies weakness. PSYCHIATRIC: Denies anxiety. Denies depression. ENDOCRINE: Denies fatigue. Denies weight change. Denies polydipsia. Denies polyurina. GENITOURINARY: Denies burning, hematuria or urgency with micturation. HEMATOLOGIC: Denies history of anemia. Denies bleeding. Blood pressure 113/61 heart rate 72 afebrile maintaining oxygen saturation on room air GENERAL: This is a 72-year-old female in no apparent distress at the time of my examination. HEENT: Head is atraumatic, normocephalic. Pupils are equal, round. Sclerae anicteric. Conjunctivae are clear. Mucous membranes of the mouth are moist. Neck is supple. There is no jugular venous distention. No carotid bruit is heard. LUNGS: Clear to auscultation no wheezes, rales or rhonchi. No chest wall tenderness is noted on palpation or with deep breathing. HEART: Regular rate and rhythm without murmurs, rubs or gallops. S1 and S2 heard. ABDOMEN: Soft, nontender. Bowel sounds are heard. No organomegaly noted. EXTREMITIES: 1+ bilateral lower extremity pitting edema to the knee. No calf tenderness noted. VASCULAR: Radial and dorsalis pedis pulses palpated, no evidence of clubbing. NEUROLOGIC: Patient is awake, alert and oriented x3. ASSESSMENT Bilateral lower extremity edema, no evidence of heart failure. This may be secondary to multiple myeloma or venous insufficiency. Mild troponin leak not indicative of an acute coronary event. He be secondary to hypotension secondary to intravascular volume depletion Dehydration secondary to diarrhea Dyslipidemia Nephrotic syndrome Chronic nicotine dependence PLAN Mild troponin leak not indicative of an acute coronary event secondary to intravascular volume depletion and hypotension. Repeat 2-D echocardiogram and Doppler study to assess cardiac structure and function. Plan has been explained in detail to the patient and her daughter. The daughter is requesting repeating a troponin value, we will add that on to the earlier lab values drawn today. Continue current medical management. Thank you kindly for this consultation. Nurse Practitioner note has been reviewed, I agree with a documented findings and plan of care. Patient was seen and examined. Past Medical History Past Medical History: Cancer, Hyperlipidemia, Osteoarthritis (OA), Thyroid Disorder Additional Past Medical History / Comment(s): osteoporosis, MULTIPLE MYELOMA History of Any Multi-Drug Resistant Organisms: None Reported Past Surgical History: Appendectomy, Hysterectomy Past Anesthesia/Blood Transfusion Reactions: Motion Sickness Past Psychological History: No Psychological Hx Reported Smoking Status: Current every day smoker Past Alcohol Use History: None Reported Past Drug Use History: None Reported - Past Family History Mother Family Medical History: Cancer Father Family Medical History: Cancer Medications and Allergies Home Medications Medication Instructions Recorded Confirmed Type Levothyroxine Sodium [Synthroid] 75 mcg PO DAILY 01/11/14 04/12/18 History Cholecalciferol [Vitamin D3] 5,000 unit PO MOWEFR 02/21/16 04/12/18 History Glucosamine/Chondr Barillas A Sod [Osteo 1 tab PO MOWEFR 02/21/16 04/12/18 History Bi-Flex Caplet] Loratadine [Claritin] 10 mg PO DAILY PRN 02/21/16 04/12/18 History Meclizine [Antivert] 25 mg PO TID PRN 02/21/16 04/12/18 History Diclofenac Sodium Gel [Voltaren 1 applic TOPICAL DAILY 07/20/16 04/12/18 History Gel] Acetaminophen Tab [Tylenol Tab] 500 - 1,000 mg PO Q6HR PRN 04/12/18 04/12/18 History Atorvastatin [Lipitor] 40 mg PO HS 04/12/18 04/12/18 History Furosemide [Lasix] 20 mg PO BID 04/12/18 04/12/18 History Meloxicam [Mobic] 7.5 mg PO DAILY 04/12/18 04/12/18 History Potassium Chloride [Klor-Con 10] 20 meq PO DAILY 04/12/18 04/12/18 History Allergies Allergy/AdvReac Type Severity Reaction Status Date / Time cephalexin [From Keflex] Allergy Unknown Verified 04/12/18 14:22 Iodinated Contrast- Oral and Allergy Nausea & Verified 04/12/18 14:22 IV Dye Vomiting, [Iodinated Contrast Media - headache IV Dye] Latex, Natural Rubber Allergy Unknown Verified 04/12/18 14:22 sulfamethoxazole Allergy Rash/Hives Verified 04/12/18 14:22 [From Bactrim] trimethoprim [From Bactrim] Allergy Rash/Hives Verified 04/12/18 14:22 cefdinir AdvReac Unknown Verified 04/12/18 14:22 ciprofloxacin [From Cipro] AdvReac severe Verified 04/12/18 14:22 constipation methocarbamol [From Robaxin] AdvReac dizzy Verified 04/12/18 14:22 Sulfa (Sulfonamide AdvReac Unknown Verified 04/12/18 14:22 Antibiotics) Physical Exam Vitals: Vital Signs Temp Pulse Pulse Resp BP BP Pulse Ox 04/13/18 12:00 97.9 F 72 16 113/61 97 04/13/18 08:00 97.8 F 68 16 108/54 98 04/13/18 05:49 80 16 107/70 98 04/13/18 04:00 97.8 F 74 18 100/48 97 04/13/18 00:00 97.8 F 67 16 101/54 98 04/12/18 20:18 97.8 F 78 18 90/59 98 04/12/18 20:00 90 18 99/51 04/12/18 18:00 101/69 04/12/18 17:30 108/63 98 04/12/18 17:00 120/63 93 L 04/12/18 16:45 90 18 98 04/12/18 16:30 116/57 98 04/12/18 16:00 90/72 99 04/12/18 15:30 115/69 99 04/12/18 15:22 98 Intake and Output 04/12/18 04/13/18 04/13/18 22:59 06:59 14:59 Intake Total 582 Balance 582 Intake: Oral 582 Other: Voiding Method Toilet Toilet Toilet # Voids 1 1 1 Weight 58.06 kg 58.4 kg 58.4 kg Results 04/13/18 11:48 04/13/18 11:48 Cardiac Enzymes 04/12/18 04/12/18 04/12/18 Range/Units 14:20 14:20 20:50 AST 28 (14-36) U/L CK-MB (CK-2) 3.7 H 2.7 H (0.0-2.4) ng/mL Troponin I 0.055 H* 0.048 H* (0.000-0.034) ng/mL 04/13/18 04/13/18 04/13/18 Range/Units 02:53 11:48 11:48 AST 26 (14-36) U/L CK-MB (CK-2) 2.4 3.0 H (0.0-2.4) ng/mL Troponin I 0.057 H* 0.064 H* (0.000-0.034) ng/mL Coagulation 04/12/18 Range/Units 14:20 PT 9.4 (9.0-12.0) sec APTT 19.7 L (22.0-30.0) sec Lipids 04/13/18 Range/Units 02:53 Triglycerides 116 (<150) mg/dL Cholesterol 205 H (<200) mg/dL HDL Cholesterol 64 H (40-60) mg/dL CBC 04/12/18 04/13/18 Range/Units 14:20 11:48 WBC 14.1 H 15.1 H (3.8-10.6) k/uL RBC 5.18 4.70 (3.80-5.40) m/uL Hgb 16.4 H 14.1 (11.4-16.0) gm/dL Hct 47.8 H 43.9 (34.0-46.0) % Plt Count 305 327 (150-450) k/uL Comprehensive Metabolic Panel 04/12/18 04/13/18 Range/Units 14:20 11:48 Sodium 136 L 133 L (137-145) mmol/L Potassium 3.9 4.2 (3.5-5.1) mmol/L Chloride 105 106 (98-107) mmol/L Carbon Dioxide 30 29 (22-30) mmol/L BUN 21 H 17 (7-17) mg/dL Creatinine 0.74 0.62 (0.52-1.04) mg/dL Glucose 105 H 114 H (74-99) mg/dL Calcium 8.8 8.6 (8.4-10.2) mg/dL AST 28 26 (14-36) U/L ALT 47 37 (9-52) U/L Alkaline Phosphatase 88 74 (38-126) U/L Total Protein 4.9 L 4.3 L (6.3-8.2) g/dL Albumin 2.5 L 2.2 L (3.5-5.0) g/dL Current Medications Generic Name Dose Route Start Last Admin Trade Name Freq PRN Reason Stop Dose Admin Aspirin 325 mg 04/13/18 09:00 04/13/18 08:55 Aspirin PO 325 mg DAILY [facility] Administration Atorvastatin Calcium 40 mg 04/12/18 21:00 04/12/18 20:43 Lipitor PO 40 mg HS [facility] Administration Calcium Carbonate/Glycine 500 mg 04/13/18 08:23 Tums PO Q2H PRN Heartburn Furosemide 20 mg 04/14/18 09:00 Lasix PO DAILY [facility] Levothyroxine Sodium 75 mcg 04/13/18 06:30 04/13/18 05:52 Synthroid PO 75 mcg DAILY@0630 [facility] Administration Meloxicam 7.5 mg 04/13/18 09:00 04/13/18 08:55 Mobic PO 7.5 mg DAILY [facility] Administration Nitroglycerin 0.4 mg 04/12/18 16:26 Nitrostat SUBLINGUAL Q5M PRN Chest Pain Pantoprazole Sodium 40 mg 04/13/18 08:30 04/13/18 08:55 Protonix PO 40 mg [id number] [facility] Administration Tramadol HCl 50 mg 04/12/18 18:34 04/13/18 09:01 Ultram PO 50 mg Q6H PRN Administration Analgesia Intake and Output 04/12/18 04/13/18 04/13/18 22:59 06:59 14:59 Intake Total 582 Balance 582 Intake: Oral 582 Other: Voiding Method Toilet Toilet Toilet # Voids 1 1 1 Weight 58.06 kg 58.4 kg 58.4 kg Patient Weight 04/14/18 06:59 Weight 58.4 kg 04/13/18 11:48 04/13/18 11:48
[2018-04-13] MEDS: ATORVASTATIN 40 MG TAB PO SCH (20:11)
--- NOTE | 2018-04-13 20:15 | P.PN ---
Subjective Progress Note Date: 04/13/18 Principal diagnosis: mgus Patient seen and examined this am. Daughter at bedside. She is feeling better, still with swelling lower extremities but improving. Diarrhea appears to have resolved. Objective - Vital Signs Vital signs: Vital Signs Temp 97.7 F 04/13/18 16:00 Pulse 76 04/13/18 16:00 Resp 16 04/13/18 16:00 BP 114/58 04/13/18 16:00 Pulse Ox 97 04/13/18 16:00 Intake & Output 04/12/18 04/13/18 04/13/18 18:59 06:59 18:59 Intake Total 1062 Output Total 600 Balance 462 Weight 58.06 kg 58.4 kg 58.4 kg Intake: Oral 1062 Output: Urine 600 Other: Voiding Method Toilet Toilet # Voids 1 1 1 - Exam - Constitutional General appearance: no acute distress - EENT Eyes: EOMI, PERRLA ENT: hearing grossly normal, normal oropharynx - Neck Neck: no lymphadenopathy Thyroid: bilateral: normal size - Respiratory Respiratory: bilateral: CTA - Cardiovascular Rhythm: regular Heart sounds: normal: S1, S2 - Gastrointestinal General gastrointestinal: normal bowel sounds, soft - Integumentary Integumentary: normal - Neurologic Neurologic: CNII-XII intact - Musculoskeletal 2+ bilateral lower extremity edema with significantly increased leg circumference Musculoskeletal: generalized weakness, strength equal bilaterally - Psychiatric Psychiatric: A&O x's 3, appropriate affect - Labs CBC & Chem 7: 04/13/18 11:48 04/13/18 11:48 Labs: Abnormal Lab Results - Last 24 Hours (Table) 04/12/18 04/13/18 04/13/18 Range/Units 20:50 02:53 02:53 WBC (3.8-10.6) k/uL Neutrophils # (1.3-7.7) k/uL Sodium (137-145) mmol/L Glucose (74-99) mg/dL CK-MB (CK-2) 2.7 H (0.0-2.4) ng/mL Troponin I 0.048 H* 0.057 H* (0.000-0.034) ng/mL Total Protein (6.3-8.2) g/dL Albumin (3.5-5.0) g/dL Cholesterol 205 H (<200) mg/dL LDL Cholesterol, Calc 118 H (0-99) mg/dL HDL Cholesterol 64 H (40-60) mg/dL 04/13/18 04/13/18 04/13/18 Range/Units 11:48 11:48 11:48 WBC 15.1 H (3.8-10.6) k/uL Neutrophils # 12.9 H (1.3-7.7) k/uL Sodium 133 L (137-145) mmol/L Glucose 114 H (74-99) mg/dL CK-MB (CK-2) 3.0 H (0.0-2.4) ng/mL Troponin I 0.064 H* (0.000-0.034) ng/mL Total Protein 4.3 L (6.3-8.2) g/dL Albumin 2.2 L (3.5-5.0) g/dL Cholesterol (<200) mg/dL LDL Cholesterol, Calc (0-99) mg/dL HDL Cholesterol (40-60) mg/dL Microbiology - Last 24 Hours (Table) 04/12/18 15:21 Urine Culture - Preliminary Urine,Voided Assessment and Plan Plan: Assessment and Recommendations: Assessment and Plan (1) Nephrotic syndrome Narrative/Plan: The patient's progressive lower except the swelling, as well as other associated systemic symptoms are likely due to this. However at this time the definite cause of the nephrotic syndrome is not known. The patient has been seen by nephrology. The above was discussed with the patient and her daughter in detail. The patient is understandably reluctant to do another 24-hour urine and wait for the results. Therefore, if we do not have results on 04/12/18, I will plan on doing a bone marrow aspiration biopsy and proceeding according to those results. I did consider repeating her bolus of steroids as she has had the required 4 day break after the initial bolus. However given increase in troponin at this point we will hold off until acute cardiac injury and ruled out Current Visit: Yes Status: Acute Code(s): N04.9 - NEPHROTIC SYNDROME WITH UNSPECIFIED MORPHOLOGIC CHANGES SNOMED Code(s): 87666515 (2) Monoclonal gammopathy Narrative/Plan: The patient's poor overall prognosis is actually in the range of asymptomatic/ smoldering myeloma with concerns for progression at this time. Diagnostic circumstances and plan as noted in detail in the HPI and above. 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 - Progression, with light chain deposition is one of the major differentials, but the clinical picture is not totally specific as a change in light chain is not very marked, and there has been no abnormality in her calcium, creatinine, or CBC. - Awaiting Repeated 24-hour urine for light chain quantitation was ordered to try to determine the etiology better. If large amount of light chain is resulted, then this would essentially confirmed light chain deposition and myeloma progression. Requiring Treatment of myeloma with a repeat bone marrow for staging. She would then not require a kidney biopsy. However if the quantitation did not reveal a major amount of light chains, then she would need a kidney biopsy to rule out other causes. Dr. Sands has discussed with the lab processing and reference lab directly regarding the incorrect test that was performed despite the clear and consise order. He discussed this further with pathology as well on 04/12/18 and was informed the quantitation had been received on 04/12/18. (Unfortunetley the reference lab was also called directly on 04/08/18, and had stated that they would run the quantitation and have results available today). The pathologist reported that she had been told that the results will be available by 04/15/18, this information has been communicated to the patient and daughter Carlene by Dr. Sands. - In the mean time we will treat with a treatment dose of dexamethasone 40mg po days 1-4 and 9-12 (COmpleted day 4 on Sunday04/09/18). I have discussed resuming the second part of dexamethasone treatment with Cardiology and received the ok to continue as no underlying cardiac etiology was found. (3) Elevated troponin Narrative/Plan: - Discussed with cardiology and no significant increase on repeat to confirm underline cardiac etiology Current Visit: Yes Status: Acute Code(s): R74.8 - ABNORMAL LEVELS OF OTHER SERUM ENZYMES SNOMED Code(s): 112978669 (4) Dehydration Narrative/Plan: - Intravascular VOlume Depletion with third spacing component of low albumin, must complete above work-up for progressive myeloma with/without nephrotic syndrome, as stated in detail above. - Her Significant edema, intravascular dehydration was likely worsened by recent diarrhea, which likely resulted in her recent symptoms of hypertension, and mental status changes. This is a primary differential for her troponin leak also. - Re-education provided again today to continue increased po hydration and increase protein intake. We discussed protein options to assist with this goal. Current Visit: Yes Status: Acute Code(s): E86.0 - DEHYDRATION SNOMED Code( s): 24763571 Plan: - Dex 40mg po for 4 more days with PPI to begin again tomorrow, discussed in detail with patient and daughter - Await Quantative Study expected to result on 04/15/18 Physician Attestation: I have completed the full history and exam on this patient and agree with above dictation by Yen Osuna NP. Dictated as a scribe
[2018-04-14] MEDS: traMADol 50 MG TAB PO PRN (03:26)
[2018-04-14 04:52] VITALS: RESP 18
[2018-04-14] MEDS: PANTOPRAZOLE 40 MG TABLET PO SCH ×2 (05:05→16:54)
[2018-04-14] MEDS: LEVOTHYROXINE 75 MCG TAB PO SCH (05:05)
[2018-04-14 07:06] LABS: Anion Gap 1 mmol/L; Blood Urea Nitrogen 16 mg/dL (7-17); Calcium 8.6 mg/dL (8.4-10.2); Carbon Dioxide 27 mmol/L (22-30); Chloride 107 mmol/L (98-107); Glucose 86 mg/dL (74-99); Potassium 4.2 mmol/L (3.5-5.1); Sodium 135 mmol/L (137-145)
--- NOTE | 2018-04-14 09:03 | ECHOF ---
Referral Reason:elevated trop, lower ext swelling MEASUREMENTS -------- HEIGHT: 157.5 cm WEIGHT: 58.1 kg BP: 108/54 IVSd: 1.0 cm (0.6 - 1.1) LVIDd: 3.5 cm (3.9 - 5.3) LVPWd: 0.9 cm (0.6 - 1.1) IVSs: 1.4 cm LVIDs: 2.0 cm LVPWs: 1.7 cm Ao Diam: 2.7 cm (2.0 - 3.7) AV Cusp: 1.4 cm (1.5 - 2.6) LA Diam: 3.2 cm (2.7 - 3.8) MV EXCURSION: 19.740 mm (> 18.000) MV EF SLOPE: 119 mm/s (70 - 150) EPSS: 1.7 cm MV E Jc: 0.71 m/s MV DecT: 298 ms MV A Jc: 0.89 m/s MV E/A Ratio: 0.79 RAP: 5.00 mmHg RVSP: 10.57 mmHg FINDINGS -------- Sinus rhythm. This was a technically good study. The left ventricular size is normal. Left ventricular wall thickness is normal. Overall left vent ricular systolic function is normal with, an EF between 55 - 60 %. The right ventricle is normal in size and function. The left atrium is normal in size. The right atrium is normal in size. The aortic valve is trileaflet and appears structurally normal. Mild mitral regurgitation is present. Mild tricuspid regurgitation present. The right ventricular systolic pressure, as measured by Doppl er, is 10.57mmHg. Pulmonic valve appears structurally normal. The aortic root size is normal. Normal inferior vena cava with normal inspiratory collapse consistent with estimated right atrial pre ssure of 5 mmHg. There is a trivial pericardial effusion present. CONCLUSIONS -------- 1. Sinus rhythm. 2. This was a technically good study. 3. The left ventricular size is normal. 4. Left ventricular wall thickness is normal. 5. Overall left ventricular systolic function is normal with, an EF between 55 - 60 %. 6. The right ventricle is normal in size and function. 7. The left atrium is normal in size. 8. The right atrium is normal in size. 9. The aortic valve is trileaflet and appears structurally normal. 10. Mild mitral regurgitation is present. 11. Mild tricuspid regurgitation present. 12. The right ventricular systolic pressure, as measured by Doppler, is 10.57mmHg. 13. Pulmonic valve appears structurally normal. 14. The aortic root size is normal. 15. Normal inferior vena cava with normal inspiratory collapse consistent with estimated right atrial pressure of 5 mmHg. 16. There is a trivial pericardial effusion present. POINTING MACHINE OPERATOR: Lissette Mendoza RDCS
[2018-04-14] MEDS: ASPIRIN 325 MG TAB PO SCH (09:49)
[2018-04-14] MEDS: DEXAMETHASONE 4 MG TAB PO SCH (09:50)
[2018-04-14] MEDS: FUROSEMIDE 20 MG TAB PO SCH (09:50)
[2018-04-14] MEDS: MELOXICAM 7.5 MG TAB PO SCH (09:50)
--- NOTE | 2018-04-14 09:59 | P.PN ---
Subjective Patient is seen in follow-up for proteinuria. Patient is noted to have nephrotic range proteinuria with concern for multiple myeloma. Serologic workup has been negative. Creatinine stable at 0.6. Edema is improved. Oral intake is good. Denies chest pain or shortness of breath. Vital signs are stable. General: The patient appeared well nourished and normally developed. HEENT: Head exam is unremarkable. Neck is without jugular venous distension. LUNGS: Lungs are clear to auscultation and percussion. Breath sounds decreased. HEART: Rate and Rhythm are regular. First and second heart sounds normal. No murmurs, rubs or gallops. ABDOMEN: Abdominal exam reveals normal bowel sounds. Non-tender and non- distended. No evidence of peritonitis. EXTREMITITES: Trace edema. Objective - Vital Signs Vital signs: Vital Signs Temp 97.9 F 04/14/18 00:00 Pulse 84 04/14/18 04:00 Resp 18 04/14/18 04:00 BP 109/69 04/14/18 04:00 Pulse Ox 100 04/14/18 04:00 Intake & Output 04/13/18 04/14/18 04/14/18 18:59 06:59 18:59 Intake Total 1542 480 480 Output Total 600 0 Balance 942 480 480 Weight 58.4 kg 59.4 kg Intake: Oral 1542 480 480 Output: Urine 600 0 Other: Voiding Method Toilet Toilet # Voids 1 2 2 - Labs CBC & Chem 7: 04/13/18 11:48 04/14/18 05:51 Labs: Abnormal Lab Results - Last 24 Hours (Table) 04/13/18 04/13/18 04/13/18 Range/Units 11:48 11:48 11:48 WBC 15.1 H (3.8-10.6) k/uL Neutrophils # 12.9 H (1.3-7.7) k/uL Sodium 133 L (137-145) mmol/L Glucose 114 H (74-99) mg/dL CK-MB (CK-2) 3.0 H (0.0-2.4) ng/mL Troponin I 0.064 H* (0.000-0.034) ng/mL Total Protein 4.3 L (6.3-8.2) g/dL Albumin 2.2 L (3.5-5.0) g/dL 04/13/18 04/14/18 Range/Units 17:38 05:51 WBC (3.8-10.6) k/uL Neutrophils # (1.3-7.7) k/uL Sodium 135 L (137-145) mmol/L Glucose (74-99) mg/dL CK-MB (CK-2) (0.0-2.4) ng/mL Troponin I 0.059 H* (0.000-0.034) ng/mL Total Protein (6.3-8.2) g/dL Albumin (3.5-5.0) g/dL Microbiology - Last 24 Hours (Table) 04/12/18 15:21 Urine Culture - Final Urine,Voided Assessment and Plan Plan: Assessment: 1. Nephrotic range proteinuria most likely secondary to multiple myeloma. Patient's noted to have elevated lambda light chains. Serologic workup has been negative. 2. Lower extremity edema secondary to nephrotic range proteinuria. 3. Hypothyroidism maintained on levothyroxine. Plan: Continue Lasix 20 mg daily. Encourage protein intake. Ensure added to be given 3 times daily. Await confirmatory for multiple myeloma. If the pending workup is not suggestive of multiple myeloma, then will proceed with kidney biopsy.
--- NOTE | 2018-04-14 10:45 | P.PN ---
Subjective Progress Note Date: 04/14/18 Breana Collins is a 72-year-old female who presented to [facility] emergency room with multiple vague complaints of severe fatigue bilateral lower extremity edema and some mental status changes with lethargy, she has known history of monoclonal gammopathy, being followed by hematology to evaluate for multiple myeloma, she also has known history of nephrotic syndrome followed by nephrology, she has hypoalbuminemia and has significant lower extremity edema bilaterally, she was evaluated for possible DVT and that was ruled out in the last 30 days, patient condition worsened gradually and family decided to bring her to emergency room, she was evaluated in the ER and had evidence of elevated troponin levels she was admitted to medical floor, cardiology, nephrology and hematology consultation were requested. Patient was seen and examined at this time she is alert and oriented 3 her mental status has improved since presentation, there is no fever or chills no headache or dizziness no chest pain no shortness of breath no cough no palpitation no nausea or vomiting no abdominal pain no diarrhea and no urinary symptoms, she has significant bilateral lower extremity edema, she has significant generalized weakness without any focal deficits. On 04/14/2018 patient is currently resting in bed. Patient states she feels much improved and her swelling has decreased. Patient denies nausea vomiting or diarrhea. Patient denies chest pain or shortness breath. Patient denies any urinary burning or frequency. Objective - Vital Signs Vital signs: Vital Signs Temp 97.9 F 04/14/18 00:00 Pulse 84 04/14/18 04:00 Resp 18 04/14/18 04:00 BP 109/69 04/14/18 04:00 Pulse Ox 100 04/14/18 04:00 Intake & Output 04/13/18 04/14/18 04/14/18 18:59 06:59 18:59 Intake Total 1542 480 480 Output Total 600 0 Balance 942 480 480 Weight 58.4 kg 59.4 kg Intake: Oral 1542 480 480 Output: Urine 600 0 Other: Voiding Method Toilet Toilet # Voids 1 2 2 - Exam In general patient is alert and oriented 3 in no apparent distress HEENT head normocephalic and atraumatic Neck is supple no JVD no goiter no lymphadenopathy Chest exam reveals a few scattered crackles bilaterally no wheezing Cardiac exam reveals regular heart sounds S1 and S2 no gallops no murmurs Abdomen is soft nontender no organomegaly with normal bowel sounds Extremity exam reveals 2+ edema no cyanosis or clubbing Neurological examination reveals generalized weakness without any gross focal deficit - Labs CBC & Chem 7: 18 11:48 04/14/18 05:51 Labs: Abnormal Lab Results - Last 24 Hours (Table) 04/13/18 04/13/18 04/13/18 Range/Units 11:48 11:48 11:48 WBC 15.1 H (3.8-10.6) k/uL Neutrophils # 12.9 H (1.3-7.7) k/uL Sodium 133 L (137-145) mmol/L Glucose 114 H (74-99) mg/dL CK-MB (CK-2) 3.0 H (0.0-2.4) ng/mL Troponin I 0.064 H* (0.000-0.034) ng/mL Total Protein 4.3 L (6.3-8.2) g/dL Albumin 2.2 L (3.5-5.0) g/dL 04/13/18 04/14/18 Range/Units 17:38 05:51 WBC (3.8-10.6) k/uL Neutrophils # (1.3-7.7) k/uL Sodium 135 L (137-145) mmol/L Glucose (74-99) mg/dL CK-MB (CK-2) (0.0-2.4) ng/mL Troponin I 0.059 H* (0.000-0.034) ng/mL Total Protein (6.3-8.2) g/dL Albumin (3.5-5.0) g/dL Microbiology - Last 24 Hours (Table) 04/12/18 15:21 Urine Culture - Final Urine,Voided Assessment and Plan Assessment: #1 generalized fatigue and weakness #2 nephrotic syndrome. Per nephrology services nephrotic range proteinuria most likely secondary to multiple myeloma. Continue Lasix 20 mg daily awaiting confirmatory for multiple myeloma. Per nephrology attending workup is not suggested multiple myeloma, then will proceed with kidney biopsy #3 hypoalbuminemia #4 dehydration. Continue normal saline at 75 #5 monoclonal gammopathy, hematology in evaluating for multiple myeloma. Per oncology services continue to 20 mg by mouth for 4 more days. Awaiting quantitative study accident on 04/15/2018 per oncology services #6 elevated troponin level. Per cardiology services mild troponin leak not indicated of an acute coronary event secondary to intravascular found patient hypertension. 2-D echo has been ordered DVT prophylaxis SCDs due to possible liver biopsy. GI prophylaxis protonix AM labs been ordered I performed an examination of the patient and discussed their management with the Nurse Practitioner. I have reviewed the Nurse Practitioner's notes and agree with the documented findings and plan of care
--- NOTE | 2018-04-14 14:29 | P.PN ---
Subjective Progress Note Date: 04/14/18 This is a 72-year-old female who was admitted to the hospital with peripheral edema. We're asked to see the patient has of abnormal troponins. The pattern of troponin elevation was not consistent with acute myocardial infarction. Her echo Cardigan showed normal LV function. It was felt that this swelling is noncardiac. A she is also found to have hypoalbuminemia and also proteinuria consistent with nephrotic syndrome. It is felt that patient may have multiple myeloma. Patient is being treated with Lasix. No further cardiac workup. Follow-up with Dr. Richardson as an outpatient Objective - Vital Signs Vital signs: Vital Signs Temp 98.1 F 04/14/18 12:00 Pulse 95 04/14/18 12:00 Resp 18 04/14/18 12:00 BP 118/59 04/14/18 12:00 Pulse Ox 98 04/14/18 12:00 Intake & Output 04/13/18 04/14/18 04/14/18 18:59 06:59 18:59 Intake Total 1542 480 702 Output Total 600 0 Balance 942 480 702 Weight 58.4 kg 59.4 kg Intake: Oral 1542 480 702 Output: Urine 600 0 Other: Voiding Method Toilet Toilet Toilet # Voids 1 2 1 # Bowel Movements 1 - Exam GENERAL EXAM: Patient is alert and oriented and doesn't appear to be in any acute distress HEENT: Normocephalic. Normal reaction of pupils, equal size, normal range of extraocular motion. No erythema or exudates in the throat. NECK: No masses, no nuchal rigidity. CHEST: No chest wall deformity. LUNGS: Equal air entry with no crackles or wheeze. HEART: S1 and S2 normal with no audible mumurs or gallops. Regular rhythm, femorals equal on both sides.. ABDOMEN: No hepatosplenomegaly, normal bowel sounds, no guarding or rigidity. SKIN: No rashes CENTRAL NERVOUS SYSTEM: No focal deficits. EXTREMITIES: 2+ edema - Labs CBC & Chem 7: 04/13/18 11:48 04/14/18 05:51 Labs: Abnormal Lab Results - Last 24 Hours (Table) 04/13/18 04/14/18 Range/Units 17:38 05:51 Sodium 135 L (137-145) mmol/L Troponin I 0.059 H* (0.000-0.034) ng/mL Microbiology - Last 24 Hours (Table) 04/12/18 15:21 Urine Culture - Final Urine,Voided Assessment and Plan (1) Elevated troponin Current Visit: Yes Status: Acute Code(s): R74.8 - ABNORMAL LEVELS OF OTHER SERUM ENZYMES SNOMED Code(s): 714929914 (2) Leg swelling Current Visit: Yes Status: Acute Code(s): M79.89 - OTHER SPECIFIED SOFT TISSUE DISORDERS SNOMED Code(s): 097339504 (3) Nephrotic syndrome Current Visit: Yes Status: Acute Code(s): N04.9 - NEPHROTIC SYNDROME WITH UNSPECIFIED MORPHOLOGIC CHANGES SNOMED Code(s): 20465145 Plan: Patient is being evaluated for for multiple myeloma. Her edema seemed to be related to hypoalbuminemia and multiple myeloma. Being treated with Lasix. Will follow as needed. Follow-up with Dr. Richardson.
[2018-04-14] MEDS: ATORVASTATIN 40 MG TAB PO SCH (20:39)
[2018-04-15 04:05] VITALS: TEMP 98
[2018-04-15] MEDS: PANTOPRAZOLE 40 MG TABLET PO SCH (06:32)
[2018-04-15] MEDS: LEVOTHYROXINE 75 MCG TAB PO SCH (06:32)
[2018-04-15 06:55] LABS: Basophils % (A) 0 %; Eosinophils % (A) 0 %; HCT 44.7 % (34.0-46.0); HGB 14.1 gm/dL (11.4-16.0); Lymphocytes # (A) 1.3 k/uL (1.0-4.8); Lymphocytes % (A) 6 %; MCH 29.5 pg (25.0-35.0); MCHC 31.5 g/dL (31.0-37.0); MCV 93.5 fL (80.0-100.0); Monocytes # (A) 0.9 k/uL (0-1.0); Monocytes % (A) 4 %; Neutrophils # (A) 20.1 k/uL (1.3-7.7); Neutrophils % (A) 89 %; Platelet Count 334 k/uL (150-450); RBC 4.78 m/uL (3.80-5.40); WBC 22.5 k/uL (3.8-10.6)
[2018-04-15 07:10] LABS: ALT 38 U/L (9-52); AST 21 U/L (14-36); Albumin 2.3 g/dL (3.5-5.0); Alkaline Phosphatase 88 U/L (38-126); Anion Gap 2 mmol/L; Blood Urea Nitrogen 25 mg/dL (7-17); Calcium 9.3 mg/dL (8.4-10.2); Carbon Dioxide 28 mmol/L (22-30); Chloride 104 mmol/L (98-107); Glucose 127 mg/dL (74-99); Potassium 4.3 mmol/L (3.5-5.1); Sodium 134 mmol/L (137-145); Total Bilirubin 0.2 mg/dL (0.2-1.3); Total Protein 4.5 g/dL (6.3-8.2)
[2018-04-15] MEDS: ASPIRIN 325 MG TAB PO SCH (09:33)
[2018-04-15] MEDS: MELOXICAM 7.5 MG TAB PO SCH (09:33)
[2018-04-15] MEDS: DEXAMETHASONE 4 MG TAB PO SCH (09:33)
[2018-04-15] MEDS: FUROSEMIDE 20 MG TAB PO SCH (09:33)
--- NOTE | 2018-04-15 10:09 | P.PN ---
Subjective Patient is seen in follow-up for proteinuria. Patient is noted to have nephrotic range proteinuria with concern for multiple myeloma. Serologic workup has been negative. Renal function at baseline. Edema is improved. Oral intake is good. Denies chest pain or shortness of breath. Patient feels well today. Vital signs are stable. General: The patient appeared well nourished and normally developed. HEENT: Head exam is unremarkable. Neck is without jugular venous distension. LUNGS: Lungs are clear to auscultation and percussion. Breath sounds decreased. HEART: Rate and Rhythm are regular. First and second heart sounds normal. No murmurs, rubs or gallops. ABDOMEN: Abdominal exam reveals normal bowel sounds. Non-tender and non- distended. No evidence of peritonitis. EXTREMITITES: Trace edema. Objective - Vital Signs Vital signs: Vital Signs Temp 98 F 04/15/18 08:00 Pulse 101 H 04/15/18 08:00 Resp 18 04/15/18 08:00 BP 108/65 04/15/18 08:00 Pulse Ox 96 04/15/18 08:00 Intake & Output 04/14/18 04/15/18 04/15/18 18:59 06:59 18:59 Intake Total 1422 240 240 Balance 1422 240 240 Weight 60.1 kg Intake: Oral 1422 240 240 Other: Voiding Method Toilet Toilet # Voids 1 1 # Bowel Movements 1 - Labs CBC & Chem 7: 04/15/18 06:15 04/15/18 06:15 Labs: Abnormal Lab Results - Last 24 Hours (Table) 04/15/18 04/15/18 Range/Units 06:15 06:15 WBC 22.5 H (3.8-10.6) k/uL Neutrophils # 20.1 H (1.3-7.7) k/uL Sodium 134 L (137-145) mmol/L BUN 25 H (7-17) mg/dL Glucose 127 H (74-99) mg/dL Total Protein 4.5 L (6.3-8.2) g/dL Albumin 2.3 L (3.5-5.0) g/dL Assessment and Plan Plan: Assessment: 1. Nephrotic range proteinuria most likely secondary to multiple myeloma. Patient's noted to have elevated lambda light chains. Serologic workup has been negative. 2. Lower extremity edema secondary to nephrotic range proteinuria. 3. Hypothyroidism maintained on levothyroxine. Plan: Continue Lasix 20 mg daily. Encourage protein intake. Ensure added to be given 3 times daily. Await confirmatory for multiple myeloma. If the pending workup is not suggestive of multiple myeloma, then will proceed with kidney biopsy. Stable to be discharged home from nephrology standpoint. Follow up outpatient in the next 2 weeks.
[2018-04-15 12:09] VITALS: BP 130/64; PULSE 84
--- NOTE | 2018-04-15 13:57 | P.DS ---
Providers Date of admission: 04/12/18 16:16 Expected date of discharge: 04/15/18 Attending physician: Deanna Pedraza Consults: 04/12/18 16:26 Consult Physician Stat Consulting Provider: [facility] Consult Reason/Comments: Elevated troponin, leg swelling Do you want consulting provider notified?: Yes Consult Physician Stat Consulting Provider: Bill Sands Consult Reason/Comments: Multiple myeloma Do you want consulting provider notified?: Yes 04/13/18 13:32 Consult Physician Routine Consulting Provider: Dwight Ayoub Consult Reason/Comments: nephrotic syn Do you want consulting provider notified?: Already Contacted Primary care physician: Alycia Salas Hospital Course: Discharge diagnosis #1 generalized fatigue and weakness likely related to her dehydration #2 nephrotic range proteinuria most likely secondary to multiple myeloma per nephrology. Continue Lasix 20 mg daily awaiting confirmatory for multiple myeloma. Patient is noted to have elevated lambda light chains. Serologic workup has been negative #3 severe protein calorie malnutrition continue ensure. #4 dehydration with intravascular volume depletion. Improved with IV fluids. #5 monoclonal gammopathy, hematology in evaluating for multiple myeloma. Patient will follow-up in the office for further blood work results. Continue the dexamethasone for 2 more days along with the PPI #6 elevated troponin level. Per cardiology services mild troponin leak not indicated of an acute coronary event secondary to intravascular found patient hypertension. #7 lower extremity edema likely related to the low albumin and nephrotic range proteinuria Hospital course Breana Collins is a 72-year-old female who presented to [facility] emergency room with multiple vague complaints of severe fatigue bilateral lower extremity edema and some mental status changes with lethargy, she has known history of monoclonal gammopathy, being followed by hematology to evaluate for multiple myeloma, she also has known history of nephrotic syndrome followed by nephrology, she has hypoalbuminemia and has significant lower extremity edema bilaterally, she was evaluated for possible DVT and that was ruled out in the last 30 days, patient condition worsened gradually and family decided to bring her to emergency room, she was evaluated in the ER and had evidence of elevated troponin levels she was admitted to medical floor, cardiology, nephrology and hematology consultation were requested. Patient was seen and examined at this time she is alert and oriented 3 her mental status has improved since presentation, there is no fever or chills no headache or dizziness no chest pain no shortness of breath no cough no palpitation no nausea or vomiting no abdominal pain no diarrhea and no urinary symptoms, she has significant bilateral lower extremity edema, she has significant generalized weakness without any focal deficits. On 04/14/2018 patient is currently resting in bed. Patient states she feels much improved and her swelling has decreased. Patient denies nausea vomiting or diarrhea. Patient denies chest pain or shortness breath. Patient denies any urinary burning or frequency. 04/15/2018 patient is medically stable for discharge. She's been cleared by oncology and nephrology. Patient likely has multiple myeloma. Were awaiting confirmation of diagnosis through blood work. Patient will follow-up with Dr. Sands in the office tomorrow. Patient has been started on dexamethasone in the hospital. She has 2 more days of dexamethasone prescribed as well as her PPI. Patient's lower extremity edema has improved greatly. She's been encouraged to continue the ensure drinks. Patient also seen by cardiology due to elevated troponins which were likely related to her dehydration and no evidence of an acute coronary syndrome. Patient is medically stable for discharge. She has been cleared by image consultant physicians for discharge. She'll follow-up with consulting physicians in the outpatient setting. I performed an examination of the patient and discussed their management with the physician Benefits Director. I have reviewed the Physician Benefits Director's notes and agree with the documented findings and plan of care Patient Condition at Discharge: Stable Plan - Discharge Summary Discharge Rx Participant: Yes New Discharge Prescriptions: New traMADol HCL [Ultram] 50 mg PO Q6H PRN #40 tab PRN Reason: Pain Dexamethasone 40 mg PO DAILY 2 Days #20 tablet Omeprazole [PriLOSEC] 40 mg PO -BRKT #30 capsule.dr Continue Levothyroxine Sodium [Synthroid] 75 mcg PO DAILY Loratadine [Claritin] 10 mg PO DAILY PRN PRN Reason: allergies Cholecalciferol [Vitamin D3] 5,000 unit PO MOWEFR Meclizine [Antivert] 25 mg PO TID PRN PRN Reason: Vertigo Glucosamine/Chondr Barillas A Sod [Osteo Bi-Flex Caplet] 1 tab PO MOWEFR Diclofenac Sodium Gel [Voltaren Gel] 1 applic TOPICAL DAILY Acetaminophen Tab [Tylenol] 500 - 1,000 mg PO Q6HR PRN PRN Reason: Pain Atorvastatin [Lipitor] 40 mg PO HS Furosemide [Lasix] 20 mg PO BID Meloxicam [Mobic] 7.5 mg PO DAILY Potassium Chloride [Klor-Con 10] 20 meq PO DAILY Discharge Medication List Levothyroxine Sodium [Synthroid] 75 mcg PO DAILY 01/11/14 [History] Cholecalciferol [Vitamin D3] 5,000 unit PO MOWEFR 02/21/16 [History] Glucosamine/Chondr Barillas A Sod [Osteo Bi-Flex Caplet] 1 tab PO MOWEFR 02/21/16 [ History] Loratadine [Claritin] 10 mg PO DAILY PRN 02/21/16 [History] Meclizine [Antivert] 25 mg PO TID PRN 02/21/16 [History] Diclofenac Sodium Gel [Voltaren Gel] 1 applic TOPICAL DAILY 07/20/16 [History] Acetaminophen Tab [Tylenol] 500 - 1,000 mg PO Q6HR PRN 04/12/18 [History] Atorvastatin [Lipitor] 40 mg PO HS 04/12/18 [History] Furosemide [Lasix] 20 mg PO BID 04/12/18 [History] Meloxicam [Mobic] 7.5 mg PO DAILY 04/12/18 [History] Potassium Chloride [Klor-Con 10] 20 meq PO DAILY 04/12/18 [History] Dexamethasone 40 mg PO DAILY 2 Days #20 tablet 04/15/18 [Rx] Omeprazole [PriLOSEC] 40 mg PO AC-BRKFST #30 capsule. 04/15/18 [Rx] traMADol HCL [Ultram] 50 mg PO Q6H PRN #40 tab 04/15/18 [Rx] Follow up Appointment(s)/Referral(s): Alycia Salas MD [Primary Care Provider] - 04/22/18 3:15 pm Dwight Ayoub DO [STAFF PHYSICIAN] - 1 Week (Please call office to schedule follow up appointment, computers down today.) Serg Richardson MD [STAFF PHYSICIAN] - 04/23/18 12:45 pm Bill Sands MD [Family Provider] - 3 Days Patient Instructions/Handouts: Hypotension (DC), Edema (DC) Activity/Diet/Wound Care/Special Instructions: Diet: cardiac Activity: as tolerated Discharge Disposition: HOME SELF-CARE
--- NOTE | 2018-04-15 15:11 | P.PN ---
Subjective Progress Note Date: 04/15/18 This is a pleasant 72-year-old female past medical history significant for multiple myeloma, dyslipidemia, hypothyroidism and chronic nicotine dependence. She follows with Dr. Richardson in the office. We had been asked to see her in consultation secondary to abnormal troponin lower extremity edema. She underwent an echocardiogram and a stress test in the office over the summer. She had a Lexiscan stress test that was negative for stress induced cardiac ischemia with ejection fraction of 82%. She denies ever having had any symptoms of chest discomfort, shortness of breath, dizziness or palpitations. She denies PND, orthopnea, cough or fever or chills. Blood pressures have been running on the lower side since admission, presumed secondary to dehydration. Her blood pressure this morning 108/60, this afternoon 130/60. Echocardiogram with Doppler study revealed a normal left ventricular systolic function. Arrangements are being made for the patient to be discharged home today. She sees Dr. Richardson in the office and will have a follow-up appointment with him. Objective - Vital Signs Vital signs: Vital Signs Temp 98 F 04/15/18 12:00 Pulse 84 04/15/18 12:00 Resp 18 04/15/18 12:00 BP 130/64 04/15/18 12:00 Pulse Ox 96 04/15/18 12:00 Intake & Output 04/14/18 04/15/18 04/15/18 18:59 06:59 18:59 Intake Total 1422 240 480 Output Total 300 Balance 1422 240 180 Weight 60.1 kg Intake: Oral 1422 240 480 Output: Urine 300 Other: Voiding Method Toilet Toilet # Voids 1 1 # Bowel Movements 1 - Exam Blood pressure 113/61 heart rate 72 afebrile maintaining oxygen saturation on room air GENERAL: This is a 72-year-old female in no apparent distress at the time of my examination. HEENT: Head is atraumatic, normocephalic. Pupils are equal, round. Sclerae anicteric. Conjunctivae are clear. Mucous membranes of the mouth are moist. Neck is supple. There is no jugular venous distention. No carotid bruit is heard. LUNGS: Clear to auscultation no wheezes, rales or rhonchi. No chest wall tenderness is noted on palpation or with deep breathing. HEART: Regular rate and rhythm without murmurs, rubs or gallops. S1 and S2 heard. ABDOMEN: Soft, nontender. Bowel sounds are heard. No organomegaly noted. EXTREMITIES: 1+ bilateral lower extremity pitting edema to the knee. No calf tenderness noted. VASCULAR: Radial and dorsalis pedis pulses palpated, no evidence of clubbing. NEUROLOGIC: Patient is awake, alert and oriented x3. - Labs CBC & Chem 7: 04/15/18 06:15 04/15/18 06:15 Labs: Abnormal Lab Results - Last 24 Hours (Table) 04/15/18 04/15/18 Range/Units 06:15 06:15 WBC 22.5 H (3.8-10.6) k/uL Neutrophils # 20.1 H (1.3-7.7) k/uL Sodium 134 L (137-145) mmol/L BUN 25 H (7-17) mg/dL Glucose 127 H (74-99) mg/dL Total Protein 4.5 L (6.3-8.2) g/dL Albumin 2.3 L (3.5-5.0) g/dL Assessment and Plan Plan: ASSESSMENT and plan #1 Bilateral lower extremity edema, no evidence of heart failure. This may be secondary to multiple myeloma or venous insufficiency. #2 Mild troponin leak not indicative of an acute coronary event. He be secondary to hypotension secondary to intravascular volume depletion #3 Dehydration secondary to diarrhea #4 Dyslipidemia #5 Nephrotic syndrome #6 Chronic nicotine dependence Plan From cardiology's perspective, patient may be able to be discharged home today. We'll make a follow-up appointment to see Dr. Richardson in the office post discharge. DNP note has been reviewed, I agree with a documented findings and plan of care. Patient was seen and examined.
[2018-04-15] MEDS: traMADol 50 MG TAB PO PRN (15:26)
--- NOTE | 2018-04-15 17:56 | P.PN ---
Subjective Progress Note Date: 04/15/18 Principal diagnosis: mgus Patient seen and examined this am. Daughter at bedside. Dr. sands will call patient later to review tests and if suspicious will set up for bone marrow biopsy prob tomorrow. Objective - Vital Signs Vital signs: Vital Signs Temp 98 F 04/15/18 12:00 Pulse 84 04/15/18 12:00 Resp 18 04/15/18 12:00 BP 130/64 04/15/18 12:00 Pulse Ox 96 04/15/18 12:00 Intake & Output 04/14/18 04/15/18 04/15/18 18:59 06:59 18:59 Intake Total 1422 240 480 Output Total 300 Balance 1422 240 180 Weight 60.1 kg Intake: Oral 1422 240 480 Output: Urine 300 Other: Voiding Method Toilet Toilet # Voids 1 1 # Bowel Movements 1 - Exam - Constitutional General appearance: no acute distress - EENT Eyes: EOMI, PERRLA ENT: hearing grossly normal, normal oropharynx - Neck Neck: no lymphadenopathy Thyroid: bilateral: normal size - Respiratory Respiratory: bilateral: CTA - Cardiovascular Rhythm: regular Heart sounds: normal: S1, S2 - Gastrointestinal General gastrointestinal: normal bowel sounds, soft - Integumentary Integumentary: normal - Neurologic Neurologic: CNII-XII intact - Musculoskeletal 2+ bilateral lower extremity edema with significantly increased leg circumference Musculoskeletal: generalized weakness, strength equal bilaterally - Psychiatric Psychiatric: A&O x's 3, appropriate affect - Labs CBC & Chem 7: 04/15/18 06:15 04/15/18 06:15 Labs: Abnormal Lab Results - Last 24 Hours (Table) 04/15/18 04/15/18 Range/Units 06:15 06:15 WBC 22.5 H (3.8-10.6) k/uL Neutrophils # 20.1 H (1.3-7.7) k/uL Sodium 134 L (137-145) mmol/L BUN 25 H (7-17) mg/dL Glucose 127 H (74-99) mg/dL Total Protein 4.5 L (6.3-8.2) g/dL Albumin 2.3 L (3.5-5.0) g/dL Assessment and Plan Plan: Assessment and Recommendations: Assessment and Plan (1) Nephrotic syndrome Narrative/Plan: The patient's progressive lower except the swelling, as well as other associated systemic symptoms are likely due to this. However at this time the definite cause of the nephrotic syndrome is not known. The patient has been seen by nephrology. The above was discussed with the patient and her daughter in detail. The patient is understandably reluctant to do another 24-hour urine and wait for the results. Therefore, if we do not have results on 04/12/18, I will plan on doing a bone marrow aspiration biopsy and proceeding according to those results. I did consider repeating her bolus of steroids as she has had the required 4 day break after the initial bolus. However given increase in troponin at this point we will hold off until acute cardiac injury and ruled out Current Visit: Yes Status: Acute Code(s): N04.9 - NEPHROTIC SYNDROME WITH UNSPECIFIED MORPHOLOGIC CHANGES SNOMED Code(s): 33202429 (2) Monoclonal gammopathy Narrative/Plan: The patient's poor overall prognosis is actually in the range of asymptomatic/ smoldering myeloma with concerns for progression at this time. Diagnostic circumstances and plan as noted in detail in the HPI and above. 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 - Progression, with light chain deposition is one of the major differentials, but the clinical picture is not totally specific as a change in light chain is not very marked, and there has been no abnormality in her calcium, creatinine, or CBC. - Awaiting Repeated 24-hour urine for light chain quantitation was ordered to try to determine the etiology better. If large amount of light chain is resulted, then this would essentially confirmed light chain deposition and myeloma progression. Requiring Treatment of myeloma with a repeat bone marrow for staging. She would then not require a kidney biopsy. However if the quantitation did not reveal a major amount of light chains, then she would need a kidney biopsy to rule out other causes. Dr. Sands has discussed with the lab processing and reference lab directly regarding the incorrect test that was performed despite the clear and consise order. He discussed this further with pathology as well on 04/12/18 and was informed the quantitation had been received on 04/12/18. (Unfortunetley the reference lab was also called directly on 04/08/18, and had stated that they would run the quantitation and have results available today). The pathologist reported that she had been told that the results will be available by 04/15/18, this information has been communicated to the patient and daughter Carlene by Dr. Sands. - In the mean time we will treat with a treatment dose of dexamethasone 40mg po days 1-4 and 9-12 (COmpleted day 4 on Sunday04/09/18). I have discussed resuming the second part of dexamethasone treatment with Cardiology and received the ok to continue as no underlying cardiac etiology was found. (3) Elevated troponin Narrative/Plan: - Discussed with cardiology and no significant increase on repeat to confirm underline cardiac etiology Current Visit: Yes Status: Acute Code(s): R74.8 - ABNORMAL LEVELS OF OTHER SERUM ENZYMES SNOMED Code(s): 908306930 (4) Dehydration Narrative/Plan: - Intravascular VOlume Depletion with third spacing component of low albumin, must complete above work-up for progressive myeloma with/without nephrotic syndrome, as stated in detail above. - Her Significant edema, intravascular dehydration was likely worsened by recent diarrhea, which likely resulted in her recent symptoms of hypertension, and mental status changes. This is a primary differential for her troponin leak also. - Re-education provided again today to continue increased po hydration and increase protein intake. We discussed protein options to assist with this goal. Current Visit: Yes Status: Acute Code(s): E86.0 - DEHYDRATION SNOMED Code( s): 40088869 Plan: - Dex 40mg po for 2 more days with PPI, prescription sent to pharmacy - Ok for discharge from oncology standpoint - Dr. Sands will call patient nad daughter to discuss findings - Await Quantative Study expected to result on 04/15/18
== END 2018-04-15 15:46 | disposition home health service (06) | DRG 840 ==
LOC: EC 12:52 → 3SCARD 16:16
PROVIDERS: ADMIT Internal Medicine; ATTEND Internal Medicine
DX: C90.00 Multiple myeloma not having achieved remission (principal); E43 Unspecified severe protein-calorie malnutrition; N04.9 Nephrotic syndrome with unspecified morphologic changes; E03.9 Hypothyroidism, unspecified; E78.5 Hyperlipidemia, unspecified; E86.0 Dehydration; E87.70 Fluid overload, unspecified; F17.200 Nicotine dependence, unspecified, uncomplicated; I10 Essential (primary) hypertension; M81.0 Age-related osteoporosis without current pathological fracture; N28.1 Cyst of kidney, acquired; Z79.899 Other long term (current) drug therapy; Z90.710 Acquired absence of both cervix and uterus; Z68.24 Body mass index [BMI] 24.0-24.9, adult; Z79.890 Hormone replacement therapy; M19.90 Unspecified osteoarthritis, unspecified site; Z88.2 Allergy status to sulfonamides; Z88.8 Allergy status to other drugs, medicaments and biological substances; Z88.1 Allergy status to other antibiotic agents; Z91.041 Radiographic dye allergy status; Z91.040 Latex allergy status
CPT/HCPCS: 36415; 71046; 76770; 80048; 80053; 80061; 81001; 82550; 82553; 83880; 84484; 85025; 85610; 85730; 87086; 93005; 93306; 96360; 96361; 99285

== ENCOUNTER → 2018-05-03 | Outpatient (CLI) | payer MEDICARE, BC ==
--- NOTE | 2018-05-03 17:16 | XR ---
EXAMINATION TYPE: XR bone survey complete DATE OF EXAM: 05/03/2018 COMPARISON: 08/17/2016 HISTORY: Multiple myeloma Bony calvarium : 2 views of the bony calvarium. Unremarkable. Spine: Two views of the cervical, thoracic and lumbar spines are submitted. Degenerative facet berry es are within the cervical spine. Degenerative subluxation of C4 posterior on C5, C5 posterior on C6 is present. Spondylosis is through the thoracic spine. Lumbar degenerative changes are present. Degen erative disc changes are within the lumbar spine with loss of disc height and vacuum disc phenomenon. PELVIS: Single view of the pelvis. Advanced degenerative changes are at the left hip. Moderate degene rative changes are at the right hip. No suspicious lytic lesions are evident. UPPER EXTREMITIES: Two views of the upper extremities. Unremarkable. LOWER EXTREMITIES: 2 views of the lower extremities. Unremarkable. Degenerative joint changes are at the hips discussed above. Milder degenerative changes at bilateral knees. Chest x-ray: Small bilateral pleural effusions are present. Osseous structures as visualized appear i ntact. IMPRESSION: 1. No suspicious lytic lesions to suggest myeloma
== END ==
LOC: RADXRMAIN 15:33
PROVIDERS: ATTEND Internal Medicine Hematology & Oncology
DX: C90.00 Multiple myeloma not having achieved remission (principal); D47.2 Monoclonal gammopathy; M15.0 Primary generalized (osteo)arthritis; R80.9 Proteinuria, unspecified
CPT/HCPCS: 77075

== ENCOUNTER → 2018-09-04 | Outpatient (CLI) | payer MEDICARE, BC ==
--- NOTE | 2018-09-04 13:33 | XR ---
EXAMINATION TYPE: XR Hip Complete LT DATE OF EXAM: 09/04/2018 CLINICAL HISTORY: Left hip pain, history of fall injury and cancer. TECHNIQUE: AP and frogleg views of the left hip are obtained. COMPARISON: None. FINDINGS: There is no acute fracture/dislocation evident in the left hip. Advanced degenerative yang ge with marked superior joint space loss causing [id number] formation with joint space sclerosis an d subchondral cystic changes identified. There is loss of spherical shape in the femoral head. There is beginning femoral head collapse with suspected 1.7 cm ossific fracture fragment. There Is moderate to severe acetabular spurring extending inferiorly. Overlying soft tissue is unremarkable. IMPRESSION: As above. Advanced degenerative change and femoral head collapse superiorly noted.
== END | disposition home or self-care (01) ==
LOC: RADXRMAIN 12:37
PROVIDERS: ATTEND Family Medicine
DX: M16.12 Unilateral primary osteoarthritis, left hip (principal); M89.8X5 Other specified disorders of bone, thigh
CPT/HCPCS: 73502

== ENCOUNTER → 2018-09-19 | Outpatient (CLI) | payer MEDICARE, BC ==
[2018-09-19 15:06] LABS: Anisocytosis Slight; HCT 34.9 % (34.0-46.0); HGB 10.9 gm/dL (11.4-16.0); MCH 30.2 pg (25.0-35.0); MCHC 31.1 g/dL (31.0-37.0); MCV 97.2 fL (80.0-100.0); Macrocytosis Slight; Platelet Count 363 k/uL (150-450); RBC 3.59 m/uL (3.80-5.40); RDW 18.7 % (11.5-15.5); WBC 8.7 k/uL (3.8-10.6)
[2018-09-19 15:12] LABS: Albumin 2.3 g/dL (3.5-5.0); Calcium 9.1 mg/dL (8.4-10.2); Potassium 3.9 mmol/L (3.5-5.1); Total Bilirubin 0.1 mg/dL (0.2-1.3); Total Protein 4.5 g/dL (6.3-8.2)
[2018-09-19 15:18] LABS: INR 0.9 (<1.2); Prothrombin Time 9.5 sec (9.0-12.0)
[2018-09-19 15:23] LABS: Appearance,Urine Cloudy (Clear); Bacteria,Urine Rare /hpf; Bilirubin,Urine Negative (Negative); Blood,Urine Moderate (Negative); Color,Urine Yellow; Glucose,Urine (UA) Negative (Negative); Hyaline Casts,Urine 6 /lpf (0-2); Ketones,Urine Negative (Negative); Leukocyte Esterase,Urine Negative (Negative); Mucus,Urine Rare /hpf; Nitrite,Urine Negative (Negative); Protein,Urine 3+ (Negative); RBC,Urine 2 /hpf (0-5); Specific Gravity,Urine 1.021 (1.001-1.035); Squamous Epithelial Cell,Urine 2 /hpf (0-4); Urobilinogen,Urine <2.0 mg/dL (<2.0); WBC,Urine 13 /hpf (0-5)
[2018-09-19 15:31] LABS: Partial Thromboplastin Time 21.7 sec (22.0-30.0)
== END | disposition home or self-care (01) ==
LOC: LABPAT 14:17
PROVIDERS: ATTEND Orthopaedic Surgery
DX: Z01.812 Encounter for preprocedural laboratory examination (principal); E85.9 Amyloidosis, unspecified
CPT/HCPCS: 80053; 81001; 85027; 85610; 85730; 87070

== ENCOUNTER 2018-10-01 05:54 | Inpatient (IN) | payer MEDICARE, BC ==
[~2018-10-01 05:54] MED LIST changes: +ACETAMINOPHEN TAB 500 MG TAB PO ONE; +CLINDAMYCIN 900 MG in DEXTROSE 5% IN WATER 50 ML IVPB ONE; +DEXAMETHASONE SOD PHOSPHATE 10 MG/ML 1 ML VIAL IV ONE; -LACTATED RINGERS 1,000 ML IV SCH; -LIDOCAINE 1% 20 ML VIAL (10MG/ML) FOR IV START INTRADERMA PRN; +MELOXICAM 7.5 MG TAB PO ONE; +MIDAZOLAM (PF) 2 MG/2 ML VIAL IV PRN; +ONDANSETRON 4 MG/2 ML VIAL IVP ONE; +ROPIVACAINE 246.25 MG, EPINEPHrine 0.5 MG, KETOROLAC 30 MG, cloNIDine HCL/PF 80 MCG, WA... MISCELLANE ONE; +TRANEXAMIC ACID 1,000 MG in SODIUM CHLORIDE 0.9% 100 ML IVPB ONE
[2018-10-01] MEDS: LACTATED RINGERS 1,000 ML IV SCH (06:50)
[2018-10-01] MEDS ORDERED: HEPARIN SODIUM,PORCINE 10,000 UNIT/ML 1 ML VIAL ONE (06:54)
[2018-10-01] MEDS ORDERED: NEOSTIGMINE 1 MG/ML 10 ML VIAL ONE (06:54)
[2018-10-01] MEDS ORDERED: SUCCINYLCHOLINE CHLORIDE 100 MG/5 ML SYR IV ONE (06:54)
[2018-10-01] MEDS ORDERED: GLYCOPYRROLATE 0.2 MG/ML 2 ML VIAL ONE (06:54)
[2018-10-01] MEDS ORDERED: LACTATED RINGERS 1,000 ML BAG IV ONE (06:54)
[2018-10-01] MEDS ORDERED: PHENYLEPHRINE-0.9% NACL SYG 1 MG/10 ML SYRINGE ONE (06:54)
[2018-10-01] MEDS ORDERED: TRANEXAMIC ACID 1,000 MG/10 ML VIAL ONE (06:54)
[2018-10-01] MEDS ORDERED: ROCURONIUM BROMIDE 10 MG/ML 10 ML VIAL IV ONE (06:54)
[2018-10-01] MEDS ORDERED: SODIUM CHLORIDE 0.9% 100 ML BAG ONE (06:54)
[2018-10-01] MEDS ORDERED: PROPOFOL 10 MG/ML 20 ML VIAL IV ONE (06:54)
[2018-10-01] MEDS ORDERED: MIDAZOLAM 2 MG/2 ML VIAL ONE (06:54)
[2018-10-01] MEDS ORDERED: LIDOCAINE 1% INJ 10MG/ML (20 ML MDV) ONE (06:54)
[2018-10-01] MEDS ORDERED: HYDROmorphone (PF) 1 MG/ML ONE (06:54)
[2018-10-01] MEDS ORDERED: fentaNYL (PF) 50 MCG/ML 2 ML AMP ONE (06:54)
[2018-10-01] MEDS ORDERED: NALOXONE 0.4 MG/ML 1 ML VIAL IV PRN (07:02)
[2018-10-01] MEDS ORDERED: hydrOXYzine PAMOATE 25 MG CAP PO PRN (07:02)
[2018-10-01] MEDS ORDERED: HYDROcodone/APAP 5-325MG 1 EACH TAB PO PRN (07:02)
[2018-10-01] MEDS ORDERED: DIAZEPAM 5 MG TAB PO PRN (07:02)
[2018-10-01] MEDS ORDERED: MAGNESIUM HYDROXIDE 2,400 MG/10 ML CUP PO PRN (07:02)
[2018-10-01] MEDS ORDERED: HYDROmorphone 0.5 MG/0.5 ML SYRINGE IVP PRN ×2 (07:02)
[2018-10-01] MEDS ORDERED: LACTATED RINGERS 1,000 ML IV ONE ×3 (08:19→08:43)
--- NOTE | 2018-10-01 08:37 | P.OP ---
Date of Procedure: 10/01/18 Preoperative Diagnosis: Severe osteoarthritis left hip Postoperative Diagnosis: Severe osteoarthritis left hip Procedure(s) Performed: Left total hip arthroplasty with a direct anterior approach Implants: Wylie and nephew Polarstem size 6 standard Wylie & Nephew R3, 3 hole acetabular shell, 48 mm Wylie & Nephew reflection 6.5 mm cancellus screw, 20 mm 2 Wylie [employer] Nephew R3, XLPE 20 acetabular liner Wylie & Nephew Oxinium femoral head 32 m, +0 All components were press-fit. The articulation is Oxinium on polyethylene. Anesthesia: GETA Surgeon: Winston Garcia Hide Mill Man #1: Glenna Kelly Estimated Blood Loss (ml): 100 Pathology: other (Femoral head) Condition: stable Disposition: PACU Indications for Procedure: After failure of conservative treatment we discussed the surgical and nonsurgical treatment options at length. Patient wishes to proceed with a total hip arthroplasty with a direct anterior approach. Complications specific to this procedure were discussed at length, including but not limited to infection, leg length discrepancy, dislocation, and nerve injury. Patient is aware of all these complications and informed consent was obtained Operative Findings: The operative findings are consistent with severe osteoarthritis of the left hip Description of Procedure: Patient was seen and evaluated in the preoperative area, consent was reviewed, and the surgical site was marked with a skin marker. Patient was then brought to the operating room and given prophylactic antibiotics intravenously. 1 g of Tranexamic acid was also given. A general anesthetic was administered by the anesthesia department. The patient was then placed on the [place] table with the bony prominences well-padded. The hip area was then prepped and draped in usual sterile fashion. A universal timeout was then performed, which confirmed the patient's name, surgical site, ALLERGIES, and procedure being performed. Next the incision site was located at 1 cm distal and 1 cm lateral to the anterior superior iliac spine. The skin and subcutaneous tissues were sharply incised. Incision was carefully dissected down to the fascia overlying the tensor fascia jessica muscle. This fascia was then incised in line with the incision. Next, using blunt finger dissection, the tensor fascia jessica muscle was dissected off its investing fascia. The muscle was then carefully retracted laterally with a cobra retractor over the lateral neck of the femur. Next, the circumflex vessels were identified and cauterized using the AquaMantis device. The anterior hip capsule was then exposed. The capsule was then opened and an inverted T fashion. Cobra retractors were then placed intracapsularly. The proximal femur was then visualized. The femoral neck was then osteotomized appropriate level above the lesser trochanter. Small amount of traction was placed with the [place] table. A small wedge of bone was then removed from the remaining femoral head. Next, using a corkscrew femoral head was easily removed from the acetabulum. On gross visual inspection, the femoral head had complete loss of articular cartilage in multiple periarticular osteophytes. Attention was then turned to the acetabulum. the acetabulum was exposed and any remaining labrum was excised. Sequential reaming of the acetabulum was performed using fluoroscopic guidance. When the a ppropriate size was reached, a trial was then placed. The position and fit of the trial was checked with fluoroscopy. The trial was then removed. Then, using fluoroscopic guidance, the final implant was impacted at 20 of anteversion and 40 of abduction, and fully seated in the acetabulum. 2 screws were then placed in the acetabulum. Again fluoroscopy was used to check position of the screws. Next, the liner was then impacted, with a 20 elevated liner located in the anterior superior quadrant. Component locking was confirmed. Attention was then directed to the femur. With the aid of the [place] table, the femur was externally rotated to approximately 130, extended, and abducted under the opposite leg. A side hook was then placed under the proximal femur, and the side hook elevator was used to elevate the proximal femur. Retractors were then placed. A capsular release was performed, as well as a release of the conjoined tendon, which afforded excellent visualization of the proximal femur. Next, a box osteotome was used to lateralize the proximal femur. A hand cigar making supervisor was then used to locate the femoral canal. Sequential broaching was then performed with appropriate size which afforded excellent fixation in the proximal femur. A trial was then placed with appropriate head and neck, and the hip was gently reduced with the aid of the [place] table. Fluoroscopy was then used to check position of the components, as well as to ensure equal leg lengths. The hip was then gently dislocated and the trials were then removed. Final implants were then impacted and the hip was again reduced. Final fluoroscopic x-rays confirmed that the components were in anatomic position, as well as equal leg lengths. The hip was also taken through range of motion, and found to be st able. The hip was then copiously irrigated with antibiotic solution with pulsatile lavage. The hip was then irrigated with Irrisept solution. The soft tissues were then injected with a ropivacaine solution, which consisted of 246.25 mg of ropivacaine, 0.5 mg of epinephrine, 30 mg of Toradol, 80 g of clonidine, and 48.45 mL of sterile water, for a total of 100 mL of fluid injected. A second do se of 1 g of Tranexamic acid was also given. the fascia was then closed with 2-0 strata fix suture. The subcutaneous tissue was closed with 3-0 Vicryl. The subcuticular tissue was closed with 3-0 strata fix suture. The skin was then closed with Dermabond glue and a sterile silver dressing. The patient was then transferred to the recovery room in stable condition. The commercial real estate assistant SHAD Thurston was required due to the complexity of surgery, and the need for skilled certified surgical assistant for positioning, draping, exposure, retraction, and closure of the wound.
[2018-10-01] MEDS: HYDROmorphone 0.5 MG/0.5 ML SYRINGE IVP PRN ×3 (08:54→10:35)
[2018-10-01] MEDS: fentaNYL (PF) 50 MCG/ML 2 ML AMP IVP ONE ×2 (09:05→09:18)
--- NOTE | 2018-10-01 09:18 | XR ---
EXAMINATION TYPE: XR Hip Limited LT DATE OF EXAM: 10/01/2018 COMPARISON: NONE HISTORY: 72-year-old female status post hip surgery, assess surgical alignment TECHNIQUE: One view FINDINGS: Single image shows placement of left total hip arthroplasty. Both acetabular cup and femoral stem com ponents of the prosthesis appear well seated without periprosthetic fracture. Soft tissue air related to recent operation. Alignment grossly anatomic. IMPRESSION: Uncomplicated postoperative appearance left total hip arthroplasty.
--- NOTE | 2018-10-01 09:20 | XR ---
EXAMINATION TYPE: XR Hip Limited LT, FL guidance operating room DATE OF EXAM: 10/01/2018 COMPARISON: 06/12/2017 HISTORY: 72-year-old female left hip anterior replacement FINDINGS: No images are provided during fluoroscopy of 25 seconds during anterior left hip arthroplasty. IMPRESSION: Fluoroscopy as above.
--- NOTE | 2018-10-01 12:04 | P.CONS ---
History of Present Illness - Reason for Consult Consult date: 10/01/18 Medical management Requesting physician: Winston Garcia - Chief Complaint Left total hip arthroplasty - History of Present Illness This is a 72-year-old female, patient of Dr. Salas. She has a known past medical history of osteoarthritis, multiple myeloma, amyloidosis, hypothyroidism and hyperlipidemia. She presents to the hospital today for left total hip arthroplasty with a direct anterior approach with Dr. Garcia. She tolerated surgery well. occasions reported. Estimated blood loss 100 mL. We've been consulted for medical management. Patient reporting pain is currently controlled. She denies any chest pain or shortness of breath, nausea or vomiting, bowel movement changes or urinary symptoms. Review of Systems Please refer to HPI otherwise unremarkable Past Medical History Past Medical History: Cancer, Hyperlipidemia, Osteoarthritis (OA), Renal Disease, Thyroid Disorder Additional Past Medical History / Comment(s): osteoporosis, MULTIPLE MYELOMA, shingles, andymiosis History of Any Multi-Drug Resistant Organisms: None Reported Past Surgical History: Appendectomy, Hysterectomy, Tonsillectomy Past Anesthesia/Blood Transfusion Reactions: Motion Sickness Smoking Status: Current every day smoker - Past Family History Mother Family Medical History: Cancer Father Family Medical History: Cancer Medications and Allergies Home Medications Medication Instructions Recorded Confirmed Type Levothyroxine Sodium [Synthroid] 75 mcg PO DAILY 01/11/14 10/01/18 History Atorvastatin [Lipitor] 40 mg PO HS 04/12/18 10/01/18 History Furosemide [Lasix] 20 mg PO DAILY 04/12/18 10/01/18 History HYDROcodone/APAP 5-325MG [Dewey 2 tab PO Q6HR PRN 09/23/18 10/01/18 History 5-325] Midodrine HCl [ProAmantine] 2.5 mg PO QAM 09/23/18 10/01/18 History fentaNYL 100MCG/HR PATCH 1 patch TRANSDERM Q72H 09/23/18 10/01/18 History [Duragesic 100MCG/HR] valACYclovir [Valtrex] 500 mg PO TID 09/23/18 10/01/18 History Ondansetron [Zofran] 4 mg PO Q12HR PRN 10/01/18 10/01/18 History Allergies Allergy/AdvReac Type Severity Reaction Status Date / Time cephalexin [From Keflex] Allergy Unknown Verified 10/01/18 08:51 Iodinated Contrast- Oral and Allergy Nausea & Verified 10/01/18 08:51 IV Dye Vomiting, [Iodinated Contrast Media - headache IV Dye] Latex, Natural Rubber Allergy Unknown Verified 10/01/18 08:51 sulfamethoxazole Allergy Rash/Hives Verified 10/01/18 08:51 [From Bactrim] trimethoprim [From Bactrim] Allergy Rash/Hives Verified 10/01/18 08:51 cefdinir AdvReac Unknown Verified 10/01/18 08:51 ciprofloxacin [From Cipro] AdvReac severe Verified 10/01/18 08:51 constipation methocarbamol [From Robaxin] AdvReac dizzy Verified 10/01/18 08:51 Sulfa (Sulfonamide AdvReac Unknown Verified 10/01/18 08:51 Antibiotics) Physical Exam Vitals: Vital Signs Temp Pulse Pulse Resp BP Pulse Ox 10/01/18 09:26 86 16 131/76 93 L 10/01/18 09:11 84 16 130/66 97 10/01/18 08:56 82 16 122/60 97 10/01/18 08:41 98.8 F 87 16 111/58 99 10/01/18 06:55 97.8 F 85 16 132/69 99 Intake and Output 09/30/18 10/01/18 10/01/18 22:59 06:59 14:59 Intake Total 700 1256 Output Total 100 Balance 700 1156 Intake: IV 700 1256 Output: Estimated Blood Loss 100 Head normocephalic Neck supple Lungs clear to auscultation bilaterally no wheezing or crackles Heart regular rate and rhythm S1-S2, no rub or gallop Abdomen is soft nontender nondistended positive bowel sounds no hepatosplenomegaly Extremities no edema. Left hip dressing clean dry and intact. Ice pack and place. +2 dorsalis pedis pulse. Patient is able to move toes Neuro alert and orientated to 3 Assessment and Plan Assessment: 1. Severe ostial arthritis of the left hip: Postop day #0 status post left total hip arthroplasty with direct anterior approach. Continue aspirin 325 mg twice a day for DVT prophylaxis per orthopedic protocol. Continue with current pain medication. Continue with PT OT. 2. History of multiple myeloma and amyloidosis: Follows Dr. Ruffin and Dr. Lora from [facility]. Patient reports her last chemotherapy was 3 weeks ago. They're planning to restart chemotherapy in another 3 weeks after patient has recovered from surgery 3. Hypothyroidism continue Synthroid 4. Hyperlipidemia continue Lipitor 5. Styes located on both upper eyelids. Patient has been using an antibiotic cream at home with minimal improvement. Recommend applying warm compresses. We'll continue to monitor. GI prophylaxis Pepcid and DVT prophylaxis aspirin and SCDs We'll check CBC and CMP Thank you for this consultation. We will continue to follow along during patient's hospitalization. Time with Patient: Greater than 30 (Greater than 50% of the total time spent in counseling and coordination of care.I performed an examination of the patient and discussed their management with the physician Magazine Publisher. I have reviewed the Physician Magazine Publisher's notes and agree with the documented findings and plan of care)
[2018-10-01] MEDS: SODIUM CHLORIDE 0.9% 1,000 ML IV SCH ×2 (13:06→23:52)
[2018-10-01] MEDS: FAMOTIDINE 20 MG TAB PO SCH (13:21)
[2018-10-01] MEDS: LEVOTHYROXINE 75 MCG TAB PO SCH (13:21)
[2018-10-01] MEDS: HYDROcodone/APAP 5-325MG 1 EACH TAB PO PRN ×2 (13:27→20:44)
[2018-10-01] MEDS: ERYTHROMYCIN 5 MG/GM OPHTH OINT 3.5 GM TUBE BOTH EYES SCH ×3 (13:50→23:53)
[2018-10-01] MEDS: valACYclovir 500 MG TAB PO SCH ×2 (17:37→21:09)
[2018-10-01] MEDS: CLINDAMYCIN 900 MG in DEXTROSE 5% IN WATER 50 ML IVPB SCH ×4 (17:37→23:52)
[2018-10-01] MEDS: ASPIRIN 325 MG TAB PO SCH (20:43)
[2018-10-01] MEDS: ATORVASTATIN 40 MG TAB PO SCH (20:43)
[2018-10-01] MEDS: SENNOSIDES-DOCUSATE SODIUM 1 EACH TAB PO SCH (20:44)
[2018-10-02] MEDS: HYDROcodone/APAP 5-325MG 1 EACH TAB PO PRN (01:53)
[2018-10-02] MEDS: LACTATED RINGERS 1,000 ML IV SCH (02:47)
[2018-10-02] MEDS: HYDROmorphone 0.5 MG/0.5 ML SYRINGE IVP PRN ×3 (03:03→22:47)
[2018-10-02] MEDS: ERYTHROMYCIN 5 MG/GM OPHTH OINT 3.5 GM TUBE BOTH EYES SCH ×3 (06:07→20:02)
[2018-10-02] MEDS: LEVOTHYROXINE 75 MCG TAB PO SCH (06:07)
[2018-10-02] MEDS: MELOXICAM 7.5 MG TAB PO SCH (07:48)
[2018-10-02] MEDS: FAMOTIDINE 20 MG TAB PO SCH (07:48)
[2018-10-02] MEDS: ASPIRIN 325 MG TAB PO SCH ×2 (07:48→22:47)
[2018-10-02] MEDS: FUROSEMIDE 20 MG TAB PO SCH (07:48)
[2018-10-02] MEDS: MIDODRINE 5 MG TAB PO SCH (07:48)
[2018-10-02] MEDS: valACYclovir 500 MG TAB PO SCH ×3 (07:49→23:06)
--- NOTE | 2018-10-02 09:14 | P.PN ---
Subjective Progress Note Date: 10/02/18 This is a 72-year-old female who is status post left total hip arthroplasty. This is postoperative day #1 and patient is seen and evaluated at bedside with Dr. Winston Garcia. Patient does complain of some pain at the surgical site today. Patient denies any fever/chills, numbness, weakness, tingling, abdominal pain, shortness of breath or chest pain. Objective - Vital Signs Vital signs: Vital Signs Temp 98.0 F 10/02/18 02:19 Pulse 86 10/02/18 02:19 Resp 16 10/02/18 02:19 BP 111/67 10/02/18 02:19 Pulse Ox 98 10/02/18 02:19 Intake & Output 10/01/18 10/02/18 10/02/18 18:59 06:59 18:59 Intake Total 2696 60 Output Total 100 Balance 2596 60 Weight 58.06 kg Intake: IV 1256 Intake, IV Titration 60 Amount Lactated Ringers 1,000 ml 60 @ 20 mls/hr IV .Q24H [facility] Rx#:[id number] Oral 1440 Output: Estimated Blood Loss 100 Other: Voiding Method Toilet # Voids 1 - Exam Vital signs are stable. Patient is in no acute distress and is alert and oriented 3. Calf is soft and nontender to palpation. Dressing is clean, dry, and intact. Patient has full foot and ankle motion without pain or difficulty. Neurovascular status and circulatory status are intact. Assessment and Plan (1) Osteoarthritis of left hip Current Visit: Yes Status: Acute Code(s): M16.12 - UNILATERAL PRIMARY OSTEOARTHRITIS, LEFT HIP SNOMED Code(s): 666726643017605 (2) S/P total hip arthroplasty Current Visit: Yes Status: Acute Code(s): Z96.649 - PRESENCE OF UNSPECIFIED ARTIFICIAL HIP JOINT SNOMED Code(s): 985625128018 Plan: Continue routine postop care and pain control. Continue anticoagulation. Weightbearing as tolerated with a walker. Leave dressing in place for 10 days. Appreciate input from medicine. Likely discharge to rehab on Sunday.
[2018-10-02 09:39] LABS: Anisocytosis Slight; Basophils % (A) 0 %; Eosinophils # (A) 0.1 k/uL (0-0.7); Eosinophils % (A) 1 %; Lymphocytes # (A) 0.9 k/uL (1.0-4.8); Lymphocytes % (A) 7 %; MCH 31.6 pg (25.0-35.0); MCHC 31.7 g/dL (31.0-37.0); MCV 99.8 fL (80.0-100.0); Macrocytosis Moderate; Mean Platelet Volume 7.2; Monocytes # (A) 0.5 k/uL (0-1.0); Monocytes % (A) 4 %; Neutrophils # (A) 11.5 k/uL (1.3-7.7); Neutrophils % (A) 86 %; Platelet Count 319 k/uL (150-450); RBC 3.81 m/uL (3.80-5.40); WBC 13.3 k/uL (3.8-10.6)
[2018-10-02 09:50] LABS: Albumin 2.4 g/dL (3.5-5.0); Calcium 8.7 mg/dL (8.4-10.2); Potassium 3.4 mmol/L (3.5-5.1); Total Bilirubin 0.4 mg/dL (0.2-1.3); Total Protein 4.7 g/dL (6.3-8.2)
[2018-10-02] MEDS: HYDROcodone/APAP 7.5-325MG 1 EACH TAB PO PRN ×2 (10:22→19:23)
[2018-10-02] MEDS ORDERED: Potassium Replacement Protocol 1 EACH MISC MISCELLANE PRN (12:12)
--- NOTE | 2018-10-02 12:16 | P.PN ---
Subjective Progress Note Date: 10/02/18 This is a 72-year-old female, patient of Dr. Salas. She has a known past medical history of osteoarthritis, multiple myeloma, amyloidosis, hypothyroidism and hyperlipidemia. She presents to the hospital today for left total hip arthroplasty with a direct anterior approach with Dr. Garcia. She tolerated surgery well. occasions reported. Estimated blood loss 100 mL. We've been consulted for medical management. Patient reporting pain is currently controlled. She denies any chest pain or shortness of breath, nausea or vomiting, bowel movement changes or urinary symptoms. On 10/02/2018 patient is alert and oriented 3 comfortably in chair. Patient did complain of increased pain to left hip throughout night. Patient is anticipating discharge in the next 2 days to [facility] for rehab. At this time patient denies chest pain or shortness of breath. Patient denies nausea vomiting or diarrhea. Patient denies any urinary burning or frequency. Objective - Vital Signs Vital signs: Vital Signs Temp 97.7 F 10/02/18 07:05 Pulse 88 10/02/18 07:05 Resp 16 10/02/18 07:05 BP 117/62 10/02/18 07:05 Pulse Ox 99 10/02/18 07:05 Intake & Output 10/01/18 10/02/18 10/02/18 18:59 06:59 18:59 Intake Total 2696 60 Output Total 100 Balance 2596 60 Weight 58.06 kg Intake: IV 1256 Intake, IV Titration 60 Amount Lactated Ringers 1,000 ml 60 @ 20 mls/hr IV .Q24H [facility] Rx#:[id number] Oral 1440 Output: Estimated Blood Loss 100 Other: Voiding Method Toilet # Voids 1 1 - Exam Head normocephalic Neck supple Lungs clear to auscultation bilaterally no wheezing or crackles Heart regular rate and rhythm S1-S2, no rub or gallop Abdomen is soft nontender nondistended positive bowel sounds no hepatosplenomegaly Extremities no edema. Left hip dressing clean dry and intact. Ice pack and place. +2 dorsalis pedis pulse. Patient is able to move toes Neuro alert and orientated to 3 - Labs CBC & Chem 7: 10/02/18 09:06 10/02/18 09:06 Labs: Abnormal Lab Results - Last 24 Hours (Table) 10/02/18 10/02/18 Range/Units 09:06 09:06 WBC 13.3 H (3.8-10.6) k/uL RDW 19.0 H (11.5-15.5) % Neutrophils # 11.5 H (1.3-7.7) k/uL Lymphocytes # 0.9 L (1.0-4.8) k/uL Sodium 135 L (137-145) mmol/L Potassium 3.4 L (3.5-5.1) mmol/L BUN 28 H (7-17) mg/dL AST 45 H (14-36) U/L Total Protein 4.7 L (6.3-8.2) g/dL Albumin 2.4 L (3.5-5.0) g/dL Assessment and Plan Assessment: 1. Severe ostial arthritis of the left hip: Postop day #0 status post left total hip arthroplasty with direct anterior approach. Continue aspirin 325 mg twice a day for DVT prophylaxis per orthopedic protocol. Continue with current pain medication. Continue with PT OT. 2. History of multiple myeloma and amyloidosis: Follows Dr. Ruffin and Dr. Lora from [facility] outpatient. Patient reports her last chemotherapy was 3 weeks ago. They're planning to restart chemotherapy in another 3 weeks after patient has recovered from surgery 3. Hypothyroidism continue Synthroid 4. Hyperlipidemia continue Lipitor 5. Styes located on both upper eyelids. Patient has been using an antibiotic cream at home with minimal improvement. Recommend applying warm compresses. We'll continue to monitor. 6. Hypokalemia. Potassium 3.4 placed per protocol 7. Leukocytosis. Urinary analysis has been ordered. Patient denies any symptoms of upper respiratory infection, shortness of breath or cough GI prophylaxis Pepcid and DVT prophylaxis aspirin and SCDs Discharge planning to [facility] for rehab. I performed an examination of the patient and discussed their management with the Nurse Practitioner. I have reviewed the Nurse Practitioner's notes and agree with the documented findings and plan of care
[2018-10-02] MEDS: POTASSIUM CHLORIDE ER 20 MEQ TAB.ER PO SCH ×2 (13:39→15:09)
[2018-10-02] MEDS: SODIUM CHLORIDE 0.9% 1,000 ML IV SCH (15:09)
[2018-10-02 19:12] LABS: Amorphous Sediment,Urine Rare /hpf; Appearance,Urine Clear (Clear); Bacteria,Urine Occasional /hpf; Bilirubin,Urine Negative (Negative); Blood,Urine Moderate (Negative); Color,Urine Light Yellow; Glucose,Urine (UA) Negative (Negative); Granular Casts,Urine 9 /lpf (0); Hyaline Casts,Urine 9 /lpf (0-2); Ketones,Urine Negative (Negative); Leukocyte Esterase,Urine Trace (Negative); Mucus,Urine Rare /hpf; Nitrite,Urine Negative (Negative); Protein,Urine 3+ (Negative); RBC,Urine 1 /hpf (0-5); Specific Gravity,Urine 1.016 (1.001-1.035); Squamous Epithelial Cell,Urine 2 /hpf (0-4); Urobilinogen,Urine <2.0 mg/dL (<2.0); WBC,Urine 22 /hpf (0-5)
[2018-10-02] MEDS: SENNOSIDES-DOCUSATE SODIUM 1 EACH TAB PO SCH (22:47)
[2018-10-02] MEDS: ATORVASTATIN 40 MG TAB PO SCH (22:47)
[2018-10-03] MEDS: ERYTHROMYCIN 5 MG/GM OPHTH OINT 3.5 GM TUBE BOTH EYES SCH ×4 (01:33→20:24)
[2018-10-03] MEDS: LEVOTHYROXINE 75 MCG TAB PO SCH (05:08)
[2018-10-03] MEDS: HYDROcodone/APAP 7.5-325MG 1 EACH TAB PO PRN ×2 (05:08→21:15)
[2018-10-03] MEDS: SODIUM CHLORIDE 0.9% 1,000 ML IV SCH ×2 (05:31→20:25)
[2018-10-03] MEDS: LACTATED RINGERS 1,000 ML IV SCH (05:31)
[2018-10-03] MEDS: MIDODRINE 5 MG TAB PO SCH (08:17)
[2018-10-03] MEDS: valACYclovir 500 MG TAB PO SCH ×3 (08:17→21:15)
[2018-10-03] MEDS: ASPIRIN 325 MG TAB PO SCH ×2 (08:17→20:08)
[2018-10-03] MEDS: FUROSEMIDE 20 MG TAB PO SCH (08:18)
[2018-10-03] MEDS: MELOXICAM 7.5 MG TAB PO SCH (08:18)
[2018-10-03] MEDS: FAMOTIDINE 20 MG TAB PO SCH (08:18)
[2018-10-03 08:25] LABS: Albumin 2.2 g/dL (3.5-5.0); Calcium 8.1 mg/dL (8.4-10.2); Total Bilirubin 0.8 mg/dL (0.2-1.3); Total Protein 4.7 g/dL (6.3-8.2)
--- NOTE | 2018-10-03 08:48 | P.PN ---
Subjective Progress Note Date: 10/03/18 This is a 72-year-old female who is status post left total hip arthroplasty. This is postoperative day #2 and patient is seen and evaluated at bedside. Patient states that her pain is better controlled today and she denies any new complaints. Patient denies any fever/chills, numbness, weakness, tingling, abdominal pain, shortness of breath or chest pain. Objective - Vital Signs Vital signs: Vital Signs Temp 98.5 F 10/03/18 00:54 Pulse 93 10/03/18 00:54 Resp 14 10/03/18 00:54 BP 113/66 10/03/18 00:54 Pulse Ox 96 10/03/18 00:54 Intake & Output 10/02/18 10/03/18 10/03/18 18:59 06:59 18:59 Intake Total 520 Balance 520 Intake: Intake, IV Titration 520 Amount Sodium Chloride 0.9% 1, 520 000 ml @ 65 mls/hr IV . [id number] [facility] Rx#:[id number] Other: Voiding Method Toilet # Voids 1 3 - Exam Vital signs are stable. Patient is in no acute distress and is alert and oriented 3. Calf is soft and nontender to palpation. Dressing is clean, dry, and intact. Patient has full foot and ankle motion without pain or difficulty. Neurovascular status and circulatory status are intact. - Labs CBC & Chem 7: 10/02/18 09:06 10/03/18 07:55 Labs: Abnormal Lab Results - Last 24 Hours (Table) 10/02/18 10/02/18 10/02/18 Range/Units 09:06 09:06 19:00 WBC 13.3 H (3.8-10.6) k/uL RDW 19.0 H (11.5-15.5) % Neutrophils # 11.5 H (1.3-7.7) k/uL Lymphocytes # 0.9 L (1.0-4.8) k/uL Sodium 135 L (137-145) mmol/L Potassium 3.4 L (3.5-5.1) mmol/L BUN 28 H (7-17) mg/dL Calcium (8.4-10.2) mg/dL AST 45 H (14-36) U/L Total Protein 4.7 L (6.3-8.2) g/dL Albumin 2.4 L (3.5-5.0) g/dL Urine Protein 3+ H (Negative) Urine Blood Moderate H (Negative) Ur Leukocyte Esterase Trace H (Negative) Urine WBC 22 H (0-5) /hpf Amorphous Sediment Rare H (None) /hpf Urine Bacteria Occasional H (None) /hpf Hyaline Casts 9 H (0-2) /lpf Urine Mucus Rare H (None) /hpf 10/03/18 Range/Units 07:55 WBC (3.8-10.6) k/uL RDW (11.5-15.5) % Neutrophils # (1.3-7.7) k/uL Lymphocytes # (1.0-4.8) k/uL Sodium (137-145) mmol/L Potassium (3.5-5.1) mmol/L BUN 27 H (7-17) mg/dL Calcium 8.1 L (8.4-10.2) mg/dL AST 57 H (14-36) U/L Total Protein 4.7 L (6.3-8.2) g/dL Albumin 2.2 L (3.5-5.0) g/dL Urine Protein (Negative) Urine Blood (Negative) Ur Leukocyte Esterase (Negative) Urine WBC (0-5) /hpf Amorphous Sediment (None) /hpf Urine Bacteria (None) /hpf Hyaline Casts (0-2) /lpf Urine Mucus (None) /hpf Assessment and Plan (1) Osteoarthritis of left hip Current Visit: Yes Status: Acute Code(s): M16.12 - UNILATERAL PRIMARY OSTEOARTHRITIS, LEFT HIP SNOMED Code(s): 907722037913879 (2) S/P total hip arthroplasty Current Visit: Yes Status: Acute Code(s): Z96.649 - PRESENCE OF UNSPECIFIED ARTIFICIAL HIP JOINT SNOMED Code(s): 469514466531 Plan: Continue routine postop care and pain control. Continue anticoagulation with Aspirin. Weightbearing as tolerated with a walker. Leave dressing in place for 10 days. Appreciate input from medicine. Likely discharge to rehab on Sunday.
[2018-10-03 08:57] LABS: Potassium 4.6 mmol/L (3.5-5.1)
--- NOTE | 2018-10-03 12:39 | P.PN ---
Subjective Progress Note Date: 10/03/18 This is a 72-year-old female, patient of Dr. Salas. She has a known past medical history of osteoarthritis, multiple myeloma, amyloidosis, hypothyroidism and hyperlipidemia. She presents to the hospital today for left total hip arthroplasty with a direct anterior approach with Dr. Garcia. She tolerated surgery well. occasions reported. Estimated blood loss 100 mL. We've been consulted for medical management. Patient reporting pain is currently controlled. She denies any chest pain or shortness of breath, nausea or vomiting, bowel movement changes or urinary symptoms. On 10/02/2018 patient is alert and oriented 3 comfortably in chair. Patient did complain of increased pain to left hip throughout night. Patient is anticipating discharge in the next 2 days to [facility] for rehab. At this time patient denies chest pain or shortness of breath. Patient denies nausea vomiting or diarrhea. Patient denies any urinary burning or frequency. 10/03/2018 patient's pain is better controlled today. Patient has evidence of a UTI. She'll be placed on amoxicillin. She denies any chest pain or shortness of breath. Denies any nausea or vomiting. Denies any bowel movement changes or urinary symptoms. AST elevated at 57 Lipitor discontinued. Objective - Vital Signs Vital signs: Vital Signs Temp 98.5 F 10/03/18 00:54 Pulse 93 10/03/18 08:14 Resp 14 10/03/18 08:14 BP 113/66 10/03/18 00:54 Pulse Ox 96 10/03/18 00:54 Intake & Output 10/02/18 10/03/18 10/03/18 18:59 06:59 18:59 Intake Total 520 480 Balance 520 480 Intake: Intake, IV Titration 520 Amount Sodium Chloride 0.9% 1, 520 000 ml @ 65 mls/hr IV . [id number] KENTRELL Rx#:[id number] Oral 480 Other: Voiding Method Toilet Toilet # Voids 1 3 - Exam Head normocephalic Neck supple Lungs clear to auscultation bilaterally no wheezing or crackles Heart regular rate and rhythm S1-S2, no rub or gallop Abdomen is soft nontender nondistended positive bowel sounds no hepatosplenomegaly Extremities no edema. Dressing clean dry and intact the left hip Neuro alert and orientated to 3 - Labs CBC & Chem 7: 10/02/18 09:06 10/03/18 07:55 Labs: Abnormal Lab Results - Last 24 Hours (Table) 10/02/18 10/03/18 Range/Units 19:00 07:55 Sodium 136 L (137-145) mmol/L Chloride 110 H (98-107) mmol/L BUN 27 H (7-17) mg/dL Calcium 8.1 L (8.4-10.2) mg/dL AST 57 H (14-36) U/L Total Protein 4.7 L (6.3-8.2) g/dL Albumin 2.2 L (3.5-5.0) g/dL Urine Protein 3+ H (Negative) Urine Blood Moderate H (Negative) Ur Leukocyte Esterase Trace H (Negative) Urine WBC 22 H (0-5) /hpf Amorphous Sediment Rare H (None) /hpf Urine Bacteria Occasional H (None) /hpf Hyaline Casts 9 H (0-2) /lpf Urine Mucus Rare H (None) /hpf Assessment and Plan Assessment: 1. Severe ostial arthritis of the left hip: status post left total hip arthroplasty with direct anterior approach. Continue aspirin 325 mg twice a day for DVT prophylaxis per orthopedic protocol. Continue with current pain medication. Continue with PT OT. 2. History of multiple myeloma and amyloidosis: Follows Dr. Ruffin and Dr. Lora from [facility]. Patient reports her last chemotherapy was 3 weeks ago. They're planning to restart chemotherapy in another 3 weeks after patient has recovered from surgery 3. Hypothyroidism continue Synthroid 4. Hyperlipidemia continue Lipitor 5. Styes located on both upper eyelids. Patient has been using an antibiotic cream at home with minimal improvement. Recommend applying warm compresses. W e'll continue to monitor. 6. UTI we'll start patient on amoxicillin. Check urine culture. GI prophylaxis Pepcid and DVT prophylaxis aspirin and SCDs
[2018-10-03] MEDS ORDERED: AMOXICILLIN 500 MG CAP PO SCH (16:00)
[2018-10-03] MEDS: CEPHALEXIN 500 MG CAP PO SCH ×2 (17:40→21:15)
[2018-10-03] MEDS: SENNOSIDES-DOCUSATE SODIUM 1 EACH TAB PO SCH (20:08)
[2018-10-03 21:22] VITALS: RESP 16
[2018-10-04] MEDS: ERYTHROMYCIN 5 MG/GM OPHTH OINT 3.5 GM TUBE BOTH EYES SCH ×3 (01:59→13:45)
[2018-10-04] MEDS: LACTATED RINGERS 1,000 ML IV SCH (03:31)
[2018-10-04] MEDS: LEVOTHYROXINE 75 MCG TAB PO SCH (06:04)
[2018-10-04 07:40] VITALS: BP 134/71; TEMP 98.1
--- NOTE | 2018-10-04 08:13 | P.DS ---
Providers Date of admission: 10/01/18 05:54 Expected date of discharge: 10/04/18 Attending physician: Winston Garcia Consults: 10/01/18 07:02 Consult Physician Routine Consulting Provider: Alycia Salas Consult Reason/Comments: medical management Do you want consulting provider notified?: Yes 10/01/18 08:53 Consult Physician Routine Consulting Provider: Deanna Pedraza Consult Reason/Comments: medical managment Do you want consulting provider notified?: Yes Primary care physician: Alycia Salas - Discharge Diagnosis(es) (1) Osteoarthritis of left hip Current Visit: Yes Status: Acute (2) S/P total hip arthroplasty Current Visit: Yes Status: Acute Hospital Course: This is a 73-year-old female with known history of degenerative arthritis of the left hip. The patient presents for evaluation. After discussion and co nsideration patient elects to proceed with total hip arthroplasty. The patient is seen preoperatively by Dr. Garcia and medically cleared for surgery by their primary care physician. Patient is admitted to [facility] on 10/01/2018 for total hip arthroplasty. The procedures performed without complication or sequelae. The patient is doing well postoperatively. Labs and vital signs are stable on day of discharge. On day of discharge patient's hip incision is healing well. There is minimal erythema. There is no drainage noted at this time. There is minimal soft tissue swelling to the hip and thigh. Patient has full foot and ankle motion without difficulty or pain. Calf is soft and nontender to palpation. Neurovascular status to the left lower extremity is intact. Patient is discharged to rehab in good condition. Opioid start talking form is reviewed and signed at patient bedside. Please see med rec for accurate list of home medications. Plan - Discharge Summary Discharge Rx Participant: No New Discharge Prescriptions: New Aspirin 325 mg PO BID #60 tab HYDROcodone/APAP 7.5-325MG [[place] 7.5-325] 1 - 2 tab PO Q6H PRN #56 tab PRN Reason: Pain Sennosides [Senokot] 1 tab PO BID #60 tablet No Action Levothyroxine Sodium [Synthroid] 75 mcg PO DAILY Atorvastatin [Lipitor] 40 mg PO HS Furosemide [Lasix] 20 mg PO DAILY fentaNYL 100MCG/HR PATCH [Duragesic 100MCG/HR] 1 patch TRANSDERM Q72H HYDROcodone/APAP 5-325MG [[place] 5-325] 2 tab PO Q6HR PRN PRN Reason: break through pain valACYclovir [Valtrex] 500 mg PO TID Midodrine HCl [ProAmantine] 2.5 mg PO QAM Ondansetron [Zofran] 4 mg PO Q12HR PRN PRN Reason: Nausea Discharge Medication List Levothyroxine Sodium [Synthroid] 75 mcg PO DAILY 01/11/14 [History] Atorvastatin [Lipitor] 40 mg PO HS 04/12/18 [History] Furosemide [Lasix] 20 mg PO DAILY 04/12/18 [History] HYDROcodone/APAP 5-325MG [[place] 5-325] 2 tab PO Q6HR PRN 09/23/18 [History] Midodrine HCl [ProAmantine] 2.5 mg PO QAM 09/23/18 [History] fentaNYL 100MCG/HR PATCH [Duragesic 100MCG/HR] 1 patch TRANSDERM Q72H 09/23/18 [History] valACYclovir [Valtrex] 500 mg PO TID 09/23/18 [History] Ondansetron [Zofran] 4 mg PO Q12HR PRN 10/01/18 [History] Aspirin 325 mg PO BID #60 tab 10/04/18 [Rx] HYDROcodone/APAP 7.5-325MG [[place] 7.5-325] 1 - 2 tab PO Q6H PRN #56 tab 10/04/18 [Rx] Sennosides [Senokot] 1 tab PO BID #60 tablet 10/04/18 [Rx] Follow up Appointment(s)/Referral(s): Alycia Salas MD [Primary Care Provider] - 10/10/18 3:00 pm Winston Garcia DO [Doctor of Osteopathic Medicine] - 10/18/18 10:00 am Activity/Diet/Wound Care/Special Instructions: Weightbearing as tolerated with walker. Leave dressing intact. Dressing may be removed by home care nurse or by patient in 10 days. May shower with dressing on. Please follow-up with [facility] in 2 weeks and call with any questions or concerns, . Discharge Disposition: TRANSFER TO SNF/ECF
[2018-10-04] MEDS: MELOXICAM 7.5 MG TAB PO SCH (08:49)
[2018-10-04] MEDS: CEPHALEXIN 500 MG CAP PO SCH (08:49)
[2018-10-04] MEDS: FUROSEMIDE 20 MG TAB PO SCH (08:50)
[2018-10-04] MEDS: ASPIRIN 325 MG TAB PO SCH (08:50)
[2018-10-04] MEDS: HYDROcodone/APAP 7.5-325MG 1 EACH TAB PO PRN (08:50)
[2018-10-04] MEDS: FAMOTIDINE 20 MG TAB PO SCH (08:50)
[2018-10-04] MEDS: MIDODRINE 5 MG TAB PO SCH (08:51)
[2018-10-04] MEDS: valACYclovir 500 MG TAB PO SCH (08:53)
[2018-10-04 09:17] LABS: Anisocytosis Slight; Basophils % (A) 0 %; Eosinophils # (A) 0.2 k/uL (0-0.7); Eosinophils % (A) 2 %; HCT 32.2 % (34.0-46.0); HGB 10.4 gm/dL (11.4-16.0); Lymphocytes # (A) 0.7 k/uL (1.0-4.8); Lymphocytes % (A) 7 %; MCH 32.4 pg (25.0-35.0); MCHC 32.4 g/dL (31.0-37.0); MCV 100.1 fL (80.0-100.0); Macrocytosis Moderate; Mean Platelet Volume 7.2; Monocytes # (A) 0.4 k/uL (0-1.0); Monocytes % (A) 4 %; Neutrophils # (A) 7.9 k/uL (1.3-7.7); Neutrophils % (A) 85 %; Platelet Count 253 k/uL (150-450); RBC 3.21 m/uL (3.80-5.40); RDW 19.2 % (11.5-15.5); WBC 9.3 k/uL (3.8-10.6)
[2018-10-04 09:27] LABS: Calcium 8.3 mg/dL (8.4-10.2); Potassium 4.2 mmol/L (3.5-5.1); Total Bilirubin 0.2 mg/dL (0.2-1.3); Total Protein 4.1 g/dL (6.3-8.2)
[2018-10-04 09:45] VITALS: PULSE 93
--- NOTE | 2018-10-04 10:47 | P.PN ---
Subjective Progress Note Date: 10/04/18 This is a 72-year-old female, patient of Dr. Salas. She has a known past medical history of osteoarthritis, multiple myeloma, amyloidosis, hypothyroidism and hyperlipidemia. She presents to the hospital today for left total hip arthroplasty with a direct anterior approach with Dr. Garcia. She tolerated surgery well. occasions reported. Estimated blood loss 100 mL. We've been consulted for medical management. Patient reporting pain is currently controlled. She denies any chest pain or shortness of breath, nausea or vomiting, bowel movement changes or urinary symptoms. On 10/02/2018 patient is alert and oriented 3 comfortably in chair. Patient did complain of increased pain to left hip throughout night. Patient is anticipating discharge in the next 2 days to [facility] for rehab. At this time patient denies chest pain or shortness of breath. Patient denies nausea vomiting or diarrhea. Patient denies any urinary burning or frequency. 10/03/2018 patient's pain is better controlled today. Patient has evidence of a UTI. She'll be placed on amoxicillin. She denies any chest pain or shortness of breath. Denies any nausea or vomiting. Denies any bowel movement changes or urinary symptoms. AST elevated at 57 Lipitor discontinued. 10/04/2018patient is medically stable to be dischargedto ECF. Patient was given a cocktail yesterday to help with bowel movements. Shehad multiple BMs through the evening. She has been up and walking to the bathroom. Initial heart rate 103-108 with ambulating. Repeat heart rate with rest and 93. And also she had given pain medication. Patient denies any chest pain or shortnessof breath. Denies any burning with urination. Objective - Vital Signs Vital signs: Vital Signs Temp 98.1 F 10/04/18 07:00 Pulse 93 10/04/18 08:00 Resp 16 10/04/18 07:00 BP 134/71 10/04/18 07:00 Pulse Ox 97 10/04/18 07:00 Intake & Output 10/03/18 10/04/18 10/04/18 18:59 06:59 18:59 Intake Total 1588 Balance 1588 Intake: Oral 1588 Other: Voiding Method Toilet Toilet # Voids 2 3 - Exam Head normocephalic Neck supple Lungs clear to auscultation bilaterally no wheezing or crackles Heart regular rate and rhythm S1-S2, no rub or gallop Abdomen is soft nontender nondistended positive bowel sounds no hepatosplenomegaly Extremities trace edema. Dressing clean dry and intact the left hip. Neuro alert and orientated to 3 - Labs CBC & Chem 7: 10/04/18 08:31 10/04/18 08:31 Labs: Abnormal Lab Results - Last 24 Hours (Table) 10/04/18 10/04/18 Range/Units 08:31 08:31 RBC 3.21 L (3.80-5.40) m/uL Hgb 10.4 L (11.4-16.0) gm/dL Hct 32.2 L (34.0-46.0) % MCV 100.1 H (80.0-100.0) fL RDW 19.2 H (11.5-15.5) % Neutrophils # 7.9 H (1.3-7.7) k/uL Lymphocytes # 0.7 L (1.0-4.8) k/uL Chloride 110 H (98-107) mmol/L BUN 26 H (7-17) mg/dL Glucose 107 H (74-99) mg/dL Calcium 8.3 L (8.4-10.2) mg/dL AST 37 H (14-36) U/L Total Protein 4.1 L (6.3-8.2) g/dL Albumin 2.0 L (3.5-5.0) g/dL Microbiology - Last 24 Hours (Table) 10/03/18 Unknown Urine Culture - Preliminary Urine,Voided Assessment and Plan Assessment: 1. Severe osteoarthritis of the left hip: status post left total hip arthroplasty with direct anterior approach. Continue aspirin 325 mg twice a day for DVT prophylaxis per orthopedic protocol. Continue with current pain medication. Continue with PT OT. 2. History of multiple myeloma and amyloidosis: Follows Dr. Ruffin and Dr. Lora from [facility] outpatient. Patient reports her last chemotherapy was 3 weeks ago. They're planning to restart chemotherapy in another 3 weeks after patient has recovered from surgery 3. Hypothyroidism continue Synthroid 4. Hyperlipidemia continue Lipitor 5. Styes located on both upper eyelids. Patient has been using an antibiotic cream at home with minimal improvement. Recommend applying warm compresses. We'll continue to monitor. 6. UTI : urine culture pending. continue keflex for 5 days 7. expected acute blood loss anemia secondary to surgery. start Ferrous Sulfate for 1 month check cbc and CMP in 1 week Patient is medically stable for discharge to [facility]. Dr. Pedraza to follow at [facility] GI prophylaxis Pepcid and DVT prophylaxis aspirin and SCDs
[2018-10-04 11:09] VITALS: BMI 24.1
[2018-10-04] MEDS: SODIUM CHLORIDE 0.9% 1,000 ML IV SCH (13:44)
== END 2018-10-04 13:50 | DRG 470 ==
LOC: 2ORMAIN 05:54 → 4SSUR 08:35
PROVIDERS: ADMIT Orthopaedic Surgery; ATTEND Orthopaedic Surgery
PROC: 0SRB06A Replacement of Left Hip Joint with Oxidized Zirconium on Polyethylene Synthetic Substitute, Uncemented, Open Approach (ICD-10-PCS; principal; 2018-10-01 07:00)
DX: M16.12 Unilateral primary osteoarthritis, left hip (principal); C90.01 Multiple myeloma in remission; D62 Acute posthemorrhagic anemia; N39.0 Urinary tract infection, site not specified; E85.9 Amyloidosis, unspecified; E03.9 Hypothyroidism, unspecified; E78.5 Hyperlipidemia, unspecified; E87.6 Hypokalemia; F17.210 Nicotine dependence, cigarettes, uncomplicated; H00.014 Hordeolum externum left upper eyelid; M71.9 Bursopathy, unspecified; R60.9 Edema, unspecified; H00.011 Hordeolum externum right upper eyelid; M81.0 Age-related osteoporosis without current pathological fracture; R74.0 Nonspecific elevation of levels of transaminase and lactic acid dehydrogenase [LDH]; Z79.890 Hormone replacement therapy; Z79.899 Other long term (current) drug therapy; Z90.710 Acquired absence of both cervix and uterus; Z92.21 Personal history of antineoplastic chemotherapy; Z88.2 Allergy status to sulfonamides; Z88.8 Allergy status to other drugs, medicaments and biological substances; Z88.1 Allergy status to other antibiotic agents; Z91.041 Radiographic dye allergy status; Z91.040 Latex allergy status; Z90.49 Acquired absence of other specified parts of digestive tract; Z80.9 Family history of malignant neoplasm, unspecified
CPT/HCPCS: 73501; 80053; 81001; 85025; 86850; 86891; 86900; 86901; 87086; 88305; 88311

== ENCOUNTER → 2018-10-11 | Outpatient (CLI) | payer MEDICARE, BC ==
--- NOTE | 2018-10-11 16:33 | US ---
EXAMINATION TYPE: US venous doppler duplex LE DATE OF EXAM: 10/11/2018 4:23 PM COMPARISON: NONE CLINICAL HISTORY: edema R60.0. Left hip replacement 10/01/18, edema bilateral legs SIDE PERFORMED: bilateral TECHNIQUE: The lower extremity deep venous system is examined utilizing real time linear array sonog franklyn with graded compression, doppler sonography and color-flow sonography. VESSELS IMAGED: External Iliac Vein (EIV) Common Femoral Vein Deep Femoral Vein Greater Saphenous Vein * Femoral Vein Popliteal Vein Small Saphenous Vein * Proximal Calf Veins (* superficial vessels) Grayscale, color doppler, spectral doppler imaging performed of the deep veins of the lower extremiti es. There is normal flow, compressibility, vascular waveforms. Right Leg: No evidence of DVT as visualized Left Leg: No evidence of DVT as visualized IMPRESSION: No sonographic evidence of deep venous thrombosis within either lower extremity.
== END | disposition home or self-care (01) ==
LOC: RADUSWWP 15:51
PROVIDERS: ATTEND Internal Medicine
DX: R60.0 Localized edema (principal)
CPT/HCPCS: 93970

== ENCOUNTER 2019-01-21 02:54 | Inpatient (IN) | payer MEDICARE, BC ==
--- NOTE | 2019-01-21 03:50 | ED ---
Altered Mental Status HPI - General Chief Complaint: Altered Mental Status Stated Complaint: Fall Time Seen by Provider: 01/21/19 03:13 Source: EMS Mode of arrival: EMS Limitations: altered mental status - History of Present Illness Initial Comments: This patient is a 73-year-old woman brought to be evaluated for altered mental status. The history is given by the patient's daughter as the patient appears delirious. Patient's daughter had last interacted with the patient at approximately 2:30 in the afternoon. She seemed to be in her usual state. They were informed by [facility] that the patient had appeared to have fallen around 2 this morning. When they found the patient, she was on the ground, wearing her top but reportedly her pants were lowered as if she had been attempting to use the bathroom. The patient's bed was still made up so they do not believe she had gotten into bed tonight. When I interview the patient, she is only able to give simple yes or no questions. She denies pain. She denies dyspnea. When asked if she recognizes where she is at, she states at home. She is not able to give the date. MD Complaint: altered mental status, confusion -: hour(s) Severity: moderate - Related Data Home Medications Medication Instructions Recorded Confirmed Levothyroxine Sodium [Synthroid] 75 mcg PO DAILY 01/11/14 01/21/19 Midodrine HCl [ProAmantine] 2.5 mg PO TID 09/23/18 01/21/19 valACYclovir [Valtrex] 500 mg PO TID 09/23/18 01/21/19 Ondansetron [Zofran] 4 mg PO Q12HR PRN 10/01/18 01/21/19 Atorvastatin Calcium [Lipitor] 40 mg PO DAILY 01/21/19 01/21/19 Dexamethasone 4 mg PO BID 01/21/19 01/21/19 Non-Formulary Drug [Non Formulary 1 each IV Q7D 01/21/19 01/21/19 Drug] Non-Formulary Drug [Non Formulary 1 each IV Q7DAYS 01/21/19 01/21/19 Drug] Non-Formulary Drug [Non Formulary 1 each IV Q7DAYS 01/21/19 01/21/19 Drug] Potassium Chloride [Klor-Con 10] 10 meq PO DAILY 01/21/19 01/21/19 Torsemide [Demadex] 20 mg PO DAILY 01/21/19 01/21/19 Allergies Allergy/AdvReac Type Severity Reaction Status Date / Time Iodinated Contrast- Oral and Allergy Nausea & Verified 01/21/19 06:55 IV Dye Vomiting, [Iodinated Contrast Media - headache IV Dye] iohexol [From Myelo-Kit] Allergy Unknown Verified 01/21/19 06:55 Latex, Natural Rubber Allergy Unknown Verified 01/21/19 06:55 sulfamethoxazole Allergy Rash/Hives Verified 01/21/19 06:55 [From Bactrim] trimethoprim [From Bactrim] Allergy Rash/Hives Verified 01/21/19 06:55 cefdinir AdvReac Unknown Verified 01/21/19 06:55 ciprofloxacin [From Cipro] AdvReac severe Verified 01/21/19 06:55 constipation methocarbamol [From Robaxin] AdvReac dizzy Verified 01/21/19 06:55 Sulfa (Sulfonamide AdvReac Unknown Verified 01/21/19 06:55 Antibiotics) Review of Systems ROS Statement: Those systems with pertinent positive or pertinent negative responses have been documented in the HPI. ROS Other: All systems not noted in ROS Statement are negative. Limitations: ROS unobtainable due to patients medical condition Respiratory: Denies: dyspnea Cardiovascular: Denies: chest pain Neurological: Denies: headache Past Medical History Past Medical History: Cancer, Hyperlipidemia, Osteoarthritis (OA), Thyroid Disorder Additional Past Medical History / Comment(s): osteoporosis, MULTIPLE MYELOMA History of Any Multi-Drug Resistant Organisms: None Reported Past Surgical History: Appendectomy, Hysterectomy Past Anesthesia/Blood Transfusion Reactions: Motion Sickness Past Psychological History: No Psychological Hx Reported Smoking Status: Former smoker Past Alcohol Use History: None Reported Past Drug Use History: None Reported - Past Family History Mother Family Medical History: Cancer Father Family Medical History: Cancer General Exam Limitations: altered mental status General appearance: alert, in no apparent distress Head exam: Present: atraumatic, normocephalic Eye exam: Present: normal appearance, PERRL, EOMI. Absent: scleral icterus, conjunctival injection, periorbital swelling, periorbital tenderness ENT exam: Present: mucous membranes dry, mucous membranes moist, TM's normal bilaterally, normal external ear exam Neck exam: Present: normal inspection, full ROM. Absent: tenderness, meningismus Respiratory exam: Present: normal lung sounds bilaterally. Absent: respiratory distress, wheezes, rales, rhonchi, stridor Cardiovascular Exam: Present: regular rate, normal rhythm, normal heart sounds. Absent: systolic murmur, diastolic murmur, rubs, gallop GI/Abdominal exam: Present: soft. Absent: distended, tenderness, guarding, rebound Extremities exam: Present: normal inspection, normal capillary refill. Absent: pedal edema, calf tenderness Back exam: Present: normal inspection. Absent: CVA tenderness (R), CVA tenderness (L), vertebral tenderness Neurological exam: Present: alert, CN II-XII intact, other (GCS is 13 (E=4, M=6, V=3). Patient not able to fully comply with neurologic exam. She is able to follow simple one step commands. Speech is clear but inappropriate responses.). Absent: oriented X3 (Patient is oriented only to person), motor sensory deficit Skin exam: Present: warm, dry, intact, normal color. Absent: rash Course Vital Signs 01/21/19 01/21/19 02:59 05:47 Temperature 97.6 F Pulse Rate 89 88 Respiratory 19 18 Rate Blood Pressure 150/87 110/88 O2 Sat by Pulse 98 99 Oximetry - Reevaluation(s) Reevaluation #1: 01/21/19 07:15 There is some delay and started patient on sepsis protocol. On presentation, vital signs are normal. Labs were drawn but initially were clotted and required redraw which led to delay. Medical Decision Making - Medical Decision Making Patient 73-year-old woman brought in for evaluation of altered mental status. The patient has workup in the emergency department and she does appear to be moderately dry. At the time of shift change, the patient had not been able to provide urine specimen. I did order straight cath, and the patient had been started on antibiotics for the possibility of sepsis due to urinary tract infection. She is receiving fluid boluses. Patient be admitted with consultation to neurology for the altered mental status as well as infectious disease for the possible sepsis. At this point patient stable without tachycardia or hypotension - Lab Data Result diagrams: 01/22/19 05:53 01/22/19 05:53 Lab Results 01/21/19 01/21/19 01/21/19 Range/Units 04:23 04:23 05:43 WBC 20.7 H (3.8-10.6) k/uL RBC 2.47 L (3.80-5.40) m/uL Hgb 9.4 L (11.4-16.0) gm/dL Hct 27.2 L (34.0-46.0) % MCV 110.2 H D (80.0-100.0) fL MCH 38.0 H (25.0-35.0) pg MCHC 34.5 (31.0-37.0) g/dL RDW 18.6 H (11.5-15.5) % Plt Count 215 (150-450) k/uL Neutrophils % 93 % Lymphocytes % 2 % Monocytes % 4 % Eosinophils % 0 % Basophils % 0 % Neutrophils # 19.2 H (1.3-7.7) k/uL Lymphocytes # 0.5 L (1.0-4.8) k/uL Monocytes # 0.8 (0-1.0) k/uL Eosinophils # 0.0 (0-0.7) k/uL Basophils # 0.0 (0-0.2) k/uL Manual Slide Review Performed Poikilocytosis (manual Present Anisocytosis Slight Macrocytosis Marked A Fragmented RBCs Present PT (9.0-12.0) sec INR (<1.2) APTT (22.0-30.0) sec Sodium 137 (137-145) mmol/L Potassium 3.8 (3.5-5.1) mmol/L Chloride 113 H (98-107) mmol/L Carbon Dioxide 19 L (22-30) mmol/L Anion Gap 5 mmol/L BUN 71 H (7-17) mg/dL Creatinine 2.23 H (0.52-1.04) mg/dL Est GFR (CKD-EPI)AfAm 24 (>60 ml/min/1.73 sqM) Est GFR (CKD-EPI)NonAf 21 (>60 ml/min/1.73 sqM) Glucose 80 (74-99) mg/dL Plasma Lactic Acid Kwasi (0.7-2.0) mmol/L Calcium 7.5 L (8.4-10.2) mg/dL Total Bilirubin 0.4 (0.2-1.3) mg/dL AST 52 H (14-36) U/L ALT 43 (9-52) U/L Alkaline Phosphatase 54 (38-126) U/L Troponin I 0.357 H* (0.000-0.034) ng/mL Total Protein 4.1 L (6.3-8.2) g/dL Albumin 2.2 L (3.5-5.0) g/dL 01/21/19 01/21/19 Range/Units 05:43 05:48 WBC (3.8-10.6) k/uL RBC (3.80-5.40) m/uL Hgb (11.4-16.0) gm/dL Hct (34.0-46.0) % MCV (80.0-100.0) fL MCH (25.0-35.0) pg MCHC (31.0-37.0) g/dL RDW (11.5-15.5) % Plt Count (150-450) k/uL Neutrophils % % Lymphocytes % % Monocytes % % Eosinophils % % Basophils % % Neutrophils # (1.3-7.7) k/uL Lymphocytes # (1.0-4.8) k/uL Monocytes # (0-1.0) k/uL Eosinophils # (0-0.7) k/uL Basophils # (0-0.2) k/uL Manual Slide Review Poikilocytosis (manual Anisocytosis Macrocytosis Fragmented RBCs PT 9.7 (9.0-12.0) sec INR 0.9 (<1.2) APTT 17.9 L (22.0-30.0) sec Sodium (137-145) mmol/L Potassium (3.5-5.1) mmol/L Chloride (98-107) mmol/L Carbon Dioxide (22-30) mmol/L Anion Gap mmol/L BUN (7-17) mg/dL Creatinine (0.52-1.04) mg/dL Est GFR (CKD-EPI)AfAm (>60 ml/min/1.73 sqM) Est GFR (CKD-EPI)NonAf (>60 ml/min/1.73 sqM) Glucose (74-99) mg/dL Plasma Lactic Acid Kwasi 0.8 (0.7-2.0) mmol/L Calcium (8.4-10.2) mg/dL Total Bilirubin (0.2-1.3) mg/dL AST (14-36) U/L ALT (9-52) U/L Alkaline Phosphatase (38-126) U/L Troponin I (0.000-0.034) ng/mL Total Protein (6.3-8.2) g/dL Albumin (3.5-5.0) g/dL - EKG Data -: EKG Interpreted by [facility] EKG shows normal: sinus rhythm, axis (Normal), intervals (Normal), QRS complexes (Low-voltage QRS complex), ST-T waves (Normal) Rate: normal (Rate 88 bpm) Critical Care Time Critical Care Time: Yes (35 minutes) Disposition Clinical Impression: Altered mental status, Uremia Disposition: ADMITTED IP TO THIS [facility] Condition: Serious
--- NOTE | 2019-01-21 04:26 | XR ---
EXAM: XR Chest, 1 View CLINICAL HISTORY: ITS.REASON XR Reason: altered mental status TECHNIQUE: Frontal view of the chest. COMPARISON: 04/12/19 FINDINGS: Lungs: No consolidation or mass. Pleural space: No acute findings Heart: No cardiomegaly. Mediastinum: Unremarkable. Bones/joints: No acute findings. IMPRESSION: No acute cardiopulmonary process.
--- NOTE | 2019-01-21 04:32 | CT ---
EXAM: CT Head Without Intravenous Contrast CLINICAL HISTORY: ITS.REASON CT Reason: Neuro Deficits TECHNIQUE: Axial computed tomography images of the head/brain without intravenous contrast. CTDI is 49 mGy and DLP is 1095 mGy-cm. This CT exam was performed using one or more of the following dose reduction techniques: automated exposure control, adjustment of the mA and/or kV according to patient size, and/or use of iterative reconstruction technique. COMPARISON: 01/11/14 CT head FINDINGS: Brain: No hemorrhage, large hypodensity, or mass effect. Chronic microvascular ischemic changes. Ventricles: No hydrocephalus. Age related cerebral volume loss. Bones/joints: Unremarkable. Soft tissues: Unremarkable. Sinuses: Unremarkable. Mastoid air cells: Clear. IMPRESSION: No acute hemorrhage, hydrocephalus, or mass effect.
[2019-01-21 04:45] LABS: Albumin 2.2 g/dL (3.5-5.0); Calcium 7.5 mg/dL (8.4-10.2); Potassium 3.8 mmol/L (3.5-5.1); Total Bilirubin 0.4 mg/dL (0.2-1.3); Total Protein 4.1 g/dL (6.3-8.2)
[2019-01-21] MEDS ORDERED: SODIUM CHLORIDE 0.9% 500 ML 500 ML IV STA (05:32)
[2019-01-21 05:58] LABS: Anisocytosis Slight; Basophils % (A) 0 %; Eosinophils % (A) 0 %; HCT 27.2 % (34.0-46.0); HGB 9.4 gm/dL (11.4-16.0); Lymphocytes # (A) 0.5 k/uL (1.0-4.8); Lymphocytes % (A) 2 %; MCHC 34.5 g/dL (31.0-37.0); Macrocytosis Marked; Monocytes # (A) 0.8 k/uL (0-1.0); Monocytes % (A) 4 %; Neutrophils # (A) 19.2 k/uL (1.3-7.7); Neutrophils % (A) 93 %; Platelet Count 215 k/uL (150-450); RBC 2.47 m/uL (3.80-5.40); RDW 18.6 % (11.5-15.5); WBC 20.7 k/uL (3.8-10.6)
[2019-01-21 06:20] LABS: INR 0.9 (<1.2); MCV 110.2 fL (80.0-100.0); Prothrombin Time 9.7 sec (9.0-12.0)
[2019-01-21 06:26] LABS: Partial Thromboplastin Time 17.9 sec (22.0-30.0)
[2019-01-21 06:48] LABS: Poikilocytosis (M) Present; RBC Fragments Present
[2019-01-21] MEDS ORDERED: LEVOFLOXACIN 750MG-D5W PMX 750 MG in DEXTROSE/WATER 1 150ML.BAG IVPB STA ×2 (06:54→07:09)
[2019-01-21] MEDS ORDERED: SODIUM CHLORIDE 0.9% 2,000 ML IV ONE (07:04)
[2019-01-21] MEDS ORDERED: ONDANSETRON 4 MG TAB PO PRN (07:09)
[2019-01-21] MEDS ORDERED: MIDODRINE HCL 2.5 MG PO SCH (09:00)
[2019-01-21 10:03] LABS: Appearance,Urine Clear (Clear); Bilirubin,Urine Negative (Negative); Blood,Urine Moderate (Negative); Color,Urine Yellow; Glucose,Urine (UA) 3+ (Negative); Ketones,Urine Negative (Negative); Leukocyte Esterase,Urine Negative (Negative); Mucus,Urine Rare /hpf; Nitrite,Urine Negative (Negative); PH, Urine 6.5 (5.0-8.0); Protein,Urine 4+ (Negative); Specific Gravity,Urine 1.017 (1.001-1.035); Squamous Epithelial Cell,Urine <1 /hpf (0-4); Urobilinogen,Urine <2.0 mg/dL (<2.0)
[2019-01-21 10:04] LABS: Amorphous Sediment,Urine Occasional /hpf; Bacteria,Urine Rare /hpf; Hyaline Casts,Urine 3 /lpf (0-2); RBC,Urine 2 /hpf (0-5)
--- NOTE | 2019-01-21 11:56 | P.CNNES ---
History of Present Illness Consult date: 01/21/19 Requesting physician: Omer Mcnulty Reason for Consult: Altered mental status Chief complaint: Confused History of Present Illness: This is a 73 RH female h/o multiple myeloma, thyroid disorder, HL and osteoporosis. She presented to the ER with confusion. Daughter had last interacted with the patient at around 230pm the day prior to admission and thought that she was at her usual baseline. The patient was later on found on the ground wearing her top but her pants had been lowered as if she had to use the bathroom. Family points out she tends to the opposite when asked to do something. ER notes she can only answer yes/no to questions. She believes she is at home and unable to give the date. No seizure activity, though patient did take a number of falls and family was concerned about evidence of head trauma on CT Head. Patient cannot provide any meaningful history. My historical inform ation was obtained by discussing the case with the family and reviewing available medical records in EMR. Review of Systems Unable to obtain from patient due to AMS Past Medical History Past Medical History: Cancer, Hyperlipidemia, Osteoarthritis (OA), Thyroid Disorder Additional Past Medical History / Comment(s): osteoporosis, MULTIPLE MYELOMA History of Any Multi-Drug Resistant Organisms: None Reported Past Surgical History: Appendectomy, Hysterectomy Past Anesthesia/Blood Transfusion Reactions: Motion Sickness Past Psychological History: No Psychological Hx Reported Smoking Status: Former smoker Past Alcohol Use History: None Reported Past Drug Use History: None Reported - Past Family History Mother Family Medical History: Cancer Father Family Medical History: Cancer Medications and Allergies Home Medications Medication Instructions Recorded Confirmed Type Levothyroxine Sodium [Synthroid] 75 mcg PO DAILY 01/11/14 01/21/19 History Midodrine HCl [ProAmantine] 2.5 mg PO TID 09/23/18 01/21/19 History valACYclovir [Valtrex] 500 mg PO TID 09/23/18 01/21/19 History Ondansetron [Zofran] 4 mg PO Q12HR PRN 10/01/18 01/21/19 History Atorvastatin Calcium [Lipitor] 40 mg PO DAILY 01/21/19 01/21/19 History Dexamethasone 4 mg PO BID 01/21/19 01/21/19 History Potassium Chloride [Klor-Con 10] 10 meq PO DAILY 08/27/19 08/27/19 History Torsemide [Demadex] 20 mg PO DAILY 01/21/19 01/21/19 History Allergies Allergy/AdvReac Type Severity Reaction Status Date / Time Iodinated Contrast- Oral and Allergy Nausea & Verified 01/21/19 06:55 IV Dye Vomiting, [Iodinated Contrast Media - headache IV Dye] iohexol [From Myelo-Kit] Allergy Unknown Verified 01/21/19 06:55 Latex, Natural Rubber Allergy Unknown Verified 01/21/19 06:55 sulfamethoxazole Allergy Rash/Hives Verified 01/21/19 06:55 [From Bactrim] trimethoprim [From Bactrim] Allergy Rash/Hives Verified 01/21/19 06:55 cefdinir AdvReac Unknown Verified 01/21/19 06:55 ciprofloxacin [From Cipro] AdvReac severe Verified 01/21/19 06:55 constipation methocarbamol [From Robaxin] AdvReac dizzy Verified 01/21/19 06:55 Sulfa (Sulfonamide AdvReac Unknown Verified 01/21/19 06:55 Antibiotics) Physical Examination - Vital Signs Vital Signs: Vital Signs Temp Pulse Resp BP Pulse Ox 01/21/19 05:47 88 18 110/88 99 01/21/19 02:59 97.6 F 89 19 150/87 98 Intake and Output 01/20/19 01/21/19 01/21/19 22:59 06:59 14:59 Other: Weight 54.431 kg Gen NAD Pleasant and cooperative HEENT NCAT Sclera without icterus O/P clear Neck Supple No carotid bruit or meningismus Cor RRR no m/r/g Lungs CTAB Abd Soft NTND +BS Ext Warm to touch No edema Areas of ecchymoses throughout limbs Neuro MS A+Ox1 Fluent but mostly non-sensical speech able to follow one-step commands only intermittently with waxing and waning mental status further detailed language function cannot be assessed CN PERRL VFF no APD EOMI no nystagmus or AMBROSIO No facial asymmetry Masseter's symmetric Hearing intact to normal voice bilaterally Speech not dysarthric Equal elevation of palate Tongue midline Sym shrug and SCM bilaterally Motor Normal bulk Bilateral [place]egenhalten No tremors GODWIN x4 but unable to cooperate to allow individual muscle group testing Sens Intact to LT x4 No obvious neglect Coord Cannot test due to AMS DTRs 2+/4 sym throughout Toes downgoing bilaterally No clonus at achilles Gait Deferred Results - Laboratory Findings CBC and BMP: 01/21/19 05:43 01/21/19 04:23 Abnormal Lab Findings: Abnormal Labs 01/21/19 01/21/19 01/21/19 04:23 04:23 05:43 WBC 20.7 H RBC 2.47 L Hgb 9.4 L Hct 27.2 L MCV 110.2 H D MCH 38.0 H RDW 18.6 H Neutrophils # 19.2 H Lymphocytes # 0.5 L Macrocytosis Marked A APTT Chloride 113 H Carbon Dioxide 19 L BUN 71 H Creatinine 2.23 H Calcium 7.5 L AST 52 H Troponin I 0.357 H* Total Protein 4.1 L Albumin 2.2 L Urine Protein Urine Glucose (UA) Urine Blood Urine WBC Amorphous Sediment Urine Bacteria Hyaline Casts Urine Mucus 01/21/19 01/21/19 01/21/19 05:43 07:25 09:20 WBC RBC Hgb Hct MCV MCH RDW Neutrophils # Lymphocytes # Macrocytosis APTT 17.9 L Chloride Carbon Dioxide BUN Creatinine Calcium AST Troponin I 0.420 H* Total Protein Albumin Urine Protein 4+ H Urine Glucose (UA) 3+ H Urine Blood Moderate H Urine WBC 7 H Amorphous Sediment Occasional H Urine Bacteria Rare H Hyaline Casts 3 H Urine Mucus Rare H - Diagnostic Findings Additional findings: CT Head wo cont 01/21/19. No ICH. Nil acute. I have reviewed neuroimages myself. Assessment and Plan Assessment: AMS consistent with toxic/metabolic encephalopathy due to UTI and acute on chronic renal failure Plan: -Medical management: IVF, antibiotics -Would recommend ID consult and switch her antiviral to acyclovir IV renal dosi ng pending ID recommendations -EEG -CT head results reviewed with patient's family -PT/OT/SP -DVT prophylaxis -d/w patient's family at bedside in detail. All questions answered. Thank you for this consultation. Please call with ?. Time with Patient: Greater than 30 (Time spent in direct patient care, greater than 50% of which was spent in [id number] counseling and coordination of care: 70 minutes)
--- NOTE | 2019-01-21 12:16 | P.CONS ---
History of Present Illness - Reason for Consult Consult date: 01/21/19 Multipple Myeloma - Chief Complaint Altered Mental Status - History of Present Illness The patient is a 73-year-old lady with multiple medical issues. 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 The patient had lambda light chain elevation. She had an extensive evaluation at the time, with workup ind icating a smoldering myeloma condition, with bone marrow involvement with monoclonal plasma cells in the range of 10-20%, but no evidence of end organ damage or bone lesions. The patient was therefore followed with observation, with no evidence of progression until 12/12. The patient had developed issues with lower except the swelling and discomfort around -11/12. Initially this was uncomfortable but not very severe and not associated with other symptoms. The patient had evaluation with car diology, and vascular surgery which were negative. During her routine follow-up visit in late 03/14 in the office, she complained of progressive increase in lower extremity swelling, increasing discomfort in her legs, as well as other systemic symptoms like progressive weakness, decreased appetite and weight loss. The patient had repeat protein electrophoresis studies done, which showed some increase in lambda light chain to about 50 mg/dL, versus 30-35 mg/dL. Her creatinine, calcium, as well as blood counts remain normal. She had 24-hour urine done which were nephrotic range proteinuria, with total protein in the range of 6-7 g in 24 hours. While there was increase in serum light chain, by itself this was not very specific given the amount of increase, as well as normal CBC and chem panel. It is therefore not clear if the development of nephrotic syndrome was due to deposition of light chains in the kidney from progression of her myeloma itself, or due to other etiologies. She was hospitalized in March 2018 for concerns of progression and continuous progressive edema on her lower extremities while she was being treated with Velcade and Decadron. There is question of moving her to try, so she was continuing care with Dr. Ruffin in anticipation of the move. 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 Lora at [facility] and the recommendation was for CYBORD regimen without Decadron in July 2018 she was started on Cytoxan and Velcade without steroids secondary to her severe edema in November her lower extremities were improving while being treated with albumin and diuretics. Again she was evaluated by Dr. Guido Blood in the regimen of starting Daratunumab and discontinuing Cytoxan and Velcade were recommended. This was discussed and ordered she has not began the new therapy, lasy cytoxan velcade 01.16.19. Dr. Ordoñez from nephrology does follow. She now presents with daughter for complaints of altered mental status. Renal function increased on admission, WBC increased, and awaiting Urine culture for suspected UTI. Review of Systems A 14 point review of systems was assessed and completed and are all negative except for HPI Past Medical History Past Medical History: Cancer, Hyperlipidemia, Osteoarthritis (OA), Thyroid Disorder Additional Past Medical History / Comment(s): osteoporosis, MULTIPLE MYELOMA History of Any Multi-Drug Resistant Organisms: None Reported Past Surgical History: Appendectomy, Hysterectomy Past Anesthesia/Blood Transfusion Reactions: Motion Sickness Past Psychological History: No Psychological Hx Reported Smoking Status: Former smoker Past Alcohol Use History: None Reported Past Drug Use History: None Reported - Past Family History Mother Family Medical History: Cancer Father Family Medical History: Cancer Medications and Allergies Home Medications Medication Instructions Recorded Confirmed Type Levothyroxine Sodium [Synthroid] 75 mcg PO DAILY 01/11/14 01/21/19 History Midodrine HCl [ProAmantine] 2.5 mg PO TID 09/23/18 01/21/19 History valACYclovir [Valtrex] 500 mg PO TID 09/23/18 01/21/19 History Ondansetron [Zofran] 4 mg PO Q12HR PRN 10/01/18 01/21/19 History Atorvastatin Calcium [Lipitor] 40 mg PO DAILY 01/21/19 01/21/19 History Dexamethasone 4 mg PO BID 01/21/19 01/21/19 History Non-Formulary Drug [Non Formulary 1 each IV Q7D 01/21/19 01/21/19 History Drug] Non-Formulary Drug [Non Formulary 1 each IV Q7DAYS 01/21/19 01/21/19 History Drug] Non-Formulary Drug [Non Formulary 1 each IV Q7DAYS 01/21/19 01/21/19 History Drug] Potassium Chloride [Klor-Con 10] 10 meq PO DAILY 01/21/19 01/21/19 History Torsemide [Demadex] 20 mg PO DAILY 01/21/19 01/21/19 History Allergies Allergy/AdvReac Type Severity Reaction Status Date / Time Iodinated Contrast- Oral and Allergy Nausea & Verified 01/21/19 06:55 IV Dye Vomiting, [Iodinated Contrast Media - headache IV Dye] iohexol [From Myelo-Kit] Allergy Unknown Verified 01/21/19 06:55 Latex, Natural Rubber Allergy Unknown Verified 01/21/19 06:55 sulfamethoxazole Allergy Rash/Hives Verified 01/21/19 06:55 [From Bactrim] trimethoprim [From Bactrim] Allergy Rash/Hives Verified 01/21/19 06:55 cefdinir AdvReac Unknown Verified 01/21/19 06:55 ciprofloxacin [From Cipro] AdvReac severe Verified 01/21/19 06:55 constipation methocarbamol [From Robaxin] AdvReac dizzy Verified 01/21/19 06:55 Sulfa (Sulfonamide AdvReac Unknown Verified 01/21/19 06:55 Antibiotics) Physical Exam Vitals: Vital Signs Temp Pulse Resp BP Pulse Ox 01/21/19 05:47 88 18 110/88 99 01/21/19 02:59 97.6 F 89 19 150/87 98 Intake and Output 01/20/19 01/21/19 01/21/19 22:59 06:59 14:59 Intake Total 1999 Balance 1999 Intake: Amount of Fluid Infused ( 2000 ml) Other: Weight 54.431 kg Constitutional General appearance: no acute distress - EENT Eyes: EOMI, PERRLA ENT: hearing grossly normal, normal oropharynx - Neck Neck: no lymphadenopathy Thyroid: bilateral: normal size - Respiratory Respiratory: bilateral: CTA - Cardiovascular Rhythm: regular Heart sounds: normal: S1, S2 - Gastrointestinal General gastrointestinal: normal bowel sounds, soft - Integumentary Integumentary: multiple bruses from recent falls - Neurologic Neurologic: weakness - Musculoskeletal mild bilateral lower extremity edema with significantly increased leg circumference Musculoskeletal: generalized weakness, strength equal bilaterally - Psychiatric Psychiatric: confused oriented to self Results CBC & Chem 7: 01/22/19 05:53 01/22/19 05:53 Labs: Abnormal Lab Results - Last 24 Hours (Table) 01/21/19 01/21/19 01/21/19 Range/Units 04:23 04:23 05:43 WBC 20.7 H (3.8-10.6) k/uL RBC 2.47 L (3.80-5.40) m/uL Hgb 9.4 L (11.4-16.0) gm/dL Hct 27.2 L (34.0-46.0) % MCV 110.2 H D (80.0-100.0) fL MCH 38.0 H (25.0-35.0) pg RDW 18.6 H (11.5-15.5) % Neutrophils # 19.2 H (1.3-7.7) k/uL Lymphocytes # 0.5 L (1.0-4.8) k/uL Macrocytosis Marked A APTT (22.0-30.0) sec Chloride 113 H (98-107) mmol/L Carbon Dioxide 19 L (22-30) mmol/L BUN 71 H (7-17) mg/dL Creatinine 2.23 H (0.52-1.04) mg/dL Calcium 7.5 L (8.4-10.2) mg/dL AST 52 H (14-36) U/L Troponin I 0.357 H* (0.000-0.034) ng/mL Total Protein 4.1 L (6.3-8.2) g/dL Albumin 2.2 L (3.5-5.0) g/dL Urine Protein (Negative) Urine Glucose (UA) (Negative) Urine Blood (Negative) Urine WBC (0-5) /hpf Amorphous Sediment (None) /hpf Urine Bacteria (None) /hpf Hyaline Casts (0-2) /lpf Urine Mucus (None) /hpf 01/21/19 01/21/19 01/21/19 Range/Units 05:43 07:25 09:20 WBC (3.8-10.6) k/uL RBC (3.80-5.40) m/uL Hgb (11.4-16.0) gm/dL Hct (34.0-46.0) % MCV (80.0-100.0) fL MCH (25.0-35.0) pg RDW (11.5-15.5) % Neutrophils # (1.3-7.7) k/uL Lymphocytes # (1.0-4.8) k/uL Macrocytosis APTT 17.9 L (22.0-30.0) sec Chloride (98-107) mmol/L Carbon Dioxide (22-30) mmol/L BUN (7-17) mg/dL Creatinine (0.52-1.04) mg/dL Calcium (8.4-10.2) mg/dL AST (14-36) U/L Troponin I 0.420 H* (0.000-0.034) ng/mL Total Protein (6.3-8.2) g/dL Albumin (3.5-5.0) g/dL Urine Protein 4+ H (Negative) Urine Glucose (UA) 3+ H (Negative) Urine Blood Moderate H (Negative) Urine WBC 7 H (0-5) /hpf Amorphous Sediment Occasional H (None) /hpf Urine Bacteria Rare H (None) /hpf Hyaline Casts 3 H (0-2) /lpf Urine Mucus Rare H (None) /hpf Assessment and Plan Plan: Altered Mental Status. 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 - Progression, with light chain deposition is one of the major differentials, but the clinical picture is not totally specific as a change in light chain is not very marked, and there has been no abnormality in her calcium, creatinine, or CBC. - Also following with Dt. Lora at [facility] - Current treatment with Cytoxan and Velcade and recent recommendations for Daratunumab Worse Anxiety and Inability to make decisions: - Agree with Psych consult for assistance with anxiety, she has take low dose xanax at home, would like [facility] input regarding this as well.
[2019-01-21] MEDS: FAMOTIDINE 20 MG/2 ML VIAL IV SCH (12:29)
[2019-01-21] MEDS ORDERED: ACYCLOVIR 400 MG/10 ML CUP PO SCH (12:30)
[2019-01-21] MEDS ORDERED: SODIUM CHLORIDE 0.9% 1,000 ML IV SCH (13:15)
[2019-01-21] MEDS: ATORVASTATIN 40 MG TAB PO SCH (13:33)
[2019-01-21] MEDS: MIDODRINE 5 MG TAB PO SCH ×2 (13:33→16:29)
--- NOTE | 2019-01-21 13:36 | P.HPIM ---
History of Present Illness H&P Date: 01/21/19 Chief Complaint: Altered mental status changes This 73-year-old female patient of Dr. Salas. Patient presented with complaints of altered mental status changes. Patient's daughter is at bedside. Per patient's daughter patient was reported last normal at 2:30 yesterday af ternoon. Patient had appointment with nephrology services. From midnight patient's life alert did drink daughter aware patient had fallen. Neighbor presented to patient's house and found patient usp dressed on the floor. Patient unable to answer any questions. Patient has a past medical history of multiple myeloma in which she follows with oncology services, hyperlipidemia, osteoarthritis, hypothyroidism, recent hip replacement and chronic kidney disease. Head CT was completed showing no acute hemorrhage, hydrocephalus or mass effect. Chest x-ray completed showing no acute cardiopulmonary process. EKG completed showing normal sinus rhythm normal EKG. Troponin slightly elevated at 0.357, 0.420 creatinine elevated at 2.23 bun 71. White blood cell elevated at 20.7. She started on Levaquin for antibiotic. Patient's antibiotics switched to IV per neurology services. At this time neurology, cardiology, oncology, nephrology and infectious disease have been consulted. All questions answered. Review of Systems Please refer to HPI otherwise unremarkable Past Medical History Past Medical History: Cancer, Hyperlipidemia, Osteoarthritis (OA), Thyroid Disorder Additional Past Medical History / Comment(s): osteoporosis, MULTIPLE MYELOMA History of Any Multi-Drug Resistant Organisms: None Reported Past Surgical History: Appendectomy, Hysterectomy Past Anesthesia/Blood Transfusion Reactions: Motion Sickness Past Psychological History: No Psychological Hx Reported Smoking Status: Former smoker Past Alcohol Use History: None Reported Past Drug Use History: None Reported - Past Family History Mother Family Medical History: Cancer Father Family Medical History: Cancer Medications and Allergies Home Medications Medication Instructions Recorded Confirmed Type Levothyroxine Sodium [Synthroid] 75 mcg PO DAILY 01/11/14 01/21/19 History Midodrine HCl [ProAmantine] 2.5 mg PO TID 09/23/18 01/21/19 History valACYclovir [Valtrex] 500 mg PO TID 09/23/18 01/21/19 History Ondansetron [Zofran] 4 mg PO Q12HR PRN 10/01/18 01/21/19 History Atorvastatin Calcium [Lipitor] 40 mg PO DAILY 01/21/19 01/21/19 History Dexamethasone 4 mg PO BID 01/21/19 01/21/19 History Non-Formulary Drug [Non Formulary 1 each IV Q7D 01/21/19 01/21/19 History Drug] Non-Formulary Drug [Non Formulary 1 each IV Q7DAYS 01/21/19 01/21/19 History Drug] Non-Formulary Drug [Non Formulary 1 each IV Q7DAYS 01/21/19 01/21/19 History Drug] Potassium Chloride [Klor-Con 10] 10 meq PO DAILY 01/21/19 01/21/19 History Torsemide [Demadex] 20 mg PO DAILY 01/21/19 01/21/19 History Allergies Allergy/AdvReac Type Severity Reaction Status Date / Time Iodinated Contrast- Oral and Allergy Nausea & Verified 01/21/19 06:55 IV Dye Vomiting, [Iodinated Contrast Media - headache IV Dye] iohexol [From Myelo-Kit] Allergy Unknown Verified 01/21/19 06:55 Latex, Natural Rubber Allergy Unknown Verified 01/21/19 06:55 sulfamethoxazole Allergy Rash/Hives Verified 01/21/19 06:55 [From Bactrim] trimethoprim [From Bactrim] Allergy Rash/Hives Verified 01/21/19 06:55 cefdinir AdvReac Unknown Verified 01/21/19 06:55 ciprofloxacin [From Cipro] AdvReac severe Verified 01/21/19 06:55 constipation methocarbamol [From Robaxin] AdvReac dizzy Verified 01/21/19 06:55 Sulfa (Sulfonamide AdvReac Unknown Verified 01/21/19 06:55 Antibiotics) Physical Exam Vitals: Vital Signs Temp Pulse Pulse Resp BP BP Pulse Ox 01/21/19 12:00 97.7 F 76 16 117/68 93 L 01/21/19 05:47 88 18 110/88 99 01/21/19 02:59 97.6 F 89 19 150/87 98 Intake and Output 01/20/19 01/21/19 01/21/19 22:59 06:59 14:59 Intake Total 1999 Balance 1999 Intake: Amount of Fluid Infused ( 2000 ml) Other: Voiding Method Incontinent Weight 54.431 kg Head normocephalic Neck supple Lungs clear to auscultation bilaterally no wheezing or crackles Heart regular rate and rhythm S1-S2, no rub or gallop Abdomen is soft nontender nondistended positive bowel sounds no hepatosplenomegaly Extremities no edema Neuro confused nonpurposeful speech Results CBC & Chem 7: 01/21/19 05:43 01/21/19 04:23 Labs: Abnormal Lab Results - Last 24 Hours (Table) 01/21/19 01/21/19 01/21/19 Range/Units 04:23 04:23 05:43 WBC 20.7 H (3.8-10.6) k/uL RBC 2.47 L (3.80-5.40) m/uL Hgb 9.4 L (11.4-16.0) gm/dL Hct 27.2 L (34.0-46.0) % MCV 110.2 H D (80.0-100.0) fL MCH 38.0 H (25.0-35.0) pg RDW 18.6 H (11.5-15.5) % Neutrophils # 19.2 H (1.3-7.7) k/uL Lymphocytes # 0.5 L (1.0-4.8) k/uL Macrocytosis Marked A APTT (22.0-30.0) sec Chloride 113 H (98-107) mmol/L Carbon Dioxide 19 L (22-30) mmol/L BUN 71 H (7-17) mg/dL Creatinine 2.23 H (0.52-1.04) mg/dL Calcium 7.5 L (8.4-10.2) mg/dL AST 52 H (14-36) U/L Troponin I 0.357 H* (0.000-0.034) ng/mL Total Protein 4.1 L (6.3-8.2) g/dL Albumin 2.2 L (3.5-5.0) g/dL Urine Protein (Negative) Urine Glucose (UA) (Negative) Urine Blood (Negative) Urine WBC (0-5) /hpf Amorphous Sediment (None) /hpf Urine Bacteria (None) /hpf Hyaline Casts (0-2) /lpf Urine Mucus (None) /hpf 01/21/19 01/21/19 01/21/19 Range/Units 05:43 07:25 09:20 WBC (3.8-10.6) k/uL RBC (3.80-5.40) m/uL Hgb (11.4-16.0) gm/dL Hct (34.0-46.0) % MCV (80.0-100.0) fL MCH (25.0-35.0) pg RDW (11.5-15.5) % Neutrophils # (1.3-7.7) k/uL Lymphocytes # (1.0-4.8) k/uL Macrocytosis APTT 17.9 L (22.0-30.0) sec Chloride (98-107) mmol/L Carbon Dioxide (22-30) mmol/L BUN (7-17) mg/dL Creatinine (0.52-1.04) mg/dL Calcium (8.4-10.2) mg/dL AST (14-36) U/L Troponin I 0.420 H* (0.000-0.034) ng/mL Total Protein (6.3-8.2) g/dL Albumin (3.5-5.0) g/dL Urine Protein 4+ H (Negative) Urine Glucose (UA) 3+ H (Negative) Urine Blood Moderate H (Negative) Urine WBC 7 H (0-5) /hpf Amorphous Sediment Occasional H (None) /hpf Urine Bacteria Rare H (None) /hpf Hyaline Casts 3 H (0-2) /lpf Urine Mucus Rare H (None) /hpf Thrombosis Risk Factor Assmnt - Choose All That Apply Any of the Below Risk Factors Present?: Yes Each Risk Factor Represents 2 Points: Patient confined to bed, Malignancy Each Risk Factor Represents 3 Points: Age 75 years or older Thrombosis Risk Factor Assessment Total Risk Factor Score: 7 Thrombosis Risk Factor Assessment Level: High Risk Assessment and Plan Assessment: 1. Altered mental status changes. Head CT completed showing no acute hemorrhage, hydrocephalus or mass effect. Neurology services are following. EEG has been ordered. Ammonia level ordered 2. Leukocytosis with possible urinary tract infection. Urine culture ordered. Blood culture ordered. Patient started on Levaquin. Infectious disease consulted 3. Acute on chronic kidney disease. Creatinine elevated at 2.23 bun a 71. Nephrology services have been consulted. Normal saline at 75 4. Elevated troponin. Troponin 0.357, 0.420. Cardiology services have been consulted 2d echo ordered 5. History of multiple myeloma and amyloidosis. Patient does follow with oncology services along with Caitie. Current treatment with Cytoxan and Velcade. Oncology services have been consulted. Discussed case with oncology a nd he plans to hold dexamethasone at this time. Antiviral has been switched to IV 6. History of hypothyroidism continue Synthroid 7. History of hyperlipidemia 8. History of total left arthroplasty in September 2018 DVT prophylaxis heparin. GI prophylaxis Pepcid Neurology, cardiology, nephrology, oncology and infectious disease consulted PT OT consulted Time with Patient: Greater than 30 (Greater than 60% of the total time spent in counseling and coordination of care. I performed an examination of the patient and discussed their management with the Nurse Practitioner. I have reviewed the Nurse Practitioner's notes and agree with the documented findings and plan of care)
[2019-01-21] MEDS: ACYCLOVIR SODIUM IVPB SCH (14:01)
[2019-01-21] MEDS: SODIUM CHLORIDE 0.9% IVPB SCH (14:01)
--- NOTE | 2019-01-21 16:00 | EEG ---
ELECTROENCEPHALOGRAM REPORT DATE OF TESTING: January 21, 2019. CLINICAL PROBLEM: Altered mental status in the setting of urinary tract infection and renal failure. EEG was requested to rule out epileptic activity. TYPE OF RECORDING: Bedside tracing using the 10-20 international electrode placement system. No sedation was given prior to the beginning of this recording. FINDINGS: The background of this tracing is seen with a polymorphic theta and occasionally delta slowing. Photic stimulation elicits a symmetric driving response. There are also EMG artifacts seen in the bifrontal leads during photic stimulation. Hyperventilation is not performed in this recording. There is no definitive sleep architecture seen. There is no background asymmetry, ictal or interictal patterns appreciated. IMPRESSION: This is an abnormal electroencephalogram with excessive background slowing consistent with a metabolic encephalopathy or other cerebral dysfunction of any cause. Clinical correlation is advised. MMODL / IJN: [id number] / MTDD
--- NOTE | 2019-01-21 18:00 | CONS ---
CONSULTATION Ms. Collins is a 73-year-old female with known history of multiple myeloma, history of amyloid kidneys, who presented with change in mental status. The family found her confused. She was seen by her daughter yesterday afternoon, but apparently has fallen early in the morning, had bruises and ecchymoses on the right side of the body and her speech was garbled and her mental status was much worse than her baseline. The history is obtained from the daughters. The patient follows with Dr. Richardson on a regular basis. Has no documented history of obstructive coronary artery disease or congestive heart failure. Her activity level is stable. She had recent total hip arthroplasty and has done well in that regard. She has some peripheral edema that improved. She has no PND, orthopnea. She has no palpitations. There is question if this was a syncope. She was noted to have evidence of urinary tract infection on presentation. Cardiology consultation was requested because of an elevation of troponin. Her coronary risk factors are remarkable for history of hyperlipidemia, chronic tobacco use. She is nondiabetic. She has hypotension at home. MEDICATION: His medications at home included potassium, Zofran, dexamethasone, Demadex 20 mg daily, midodrine 2.5 mg 3 times a day, atorvastatin 40 mg daily, Valtrex and levothyroxine. REVIEW OF SYSTEMS: RESPIRATORY SYSTEM: She has no recent wheezing. No cough. No history of documented obstructive lung disease. GI system: No recent GI bleeding. No peptic ulcer disease. system: She has no prior history of documented chronic kidney disease, although her renal functions are normal at this time. NERVOUS SYSTEM: No history of stroke or seizure. PAST MEDICAL HISTORY: Past medical history is remarkable for history of multiple myeloma that has been followed on a regular basis as well as history of amyloid kidney. PHYSICAL EXAMINATION: She is a 73-year-old female, alert, following some commands. Blood pressure 117/60 with a heart rate in the 70s. Ecchymosis noted, more on the right side of the body on the face. Eyes sclerae anicteric. Neck no bruit. LUNGS: Clear to auscultation. HEART: Regular rate and rhythm S1, S2. No S3 with a systolic ejection murmur heard at the base 2/6. No diastolic murmur. No rub. ABDOMEN: Soft, nontender. Positive bowel sounds. No organomegaly. EXTREMITIES: No edema. Intact distal pulses. LAB DATA: Lab data revealed a hemoglobin of 9.4, white blood cell of 20.7, platelet count of 215. BUN and creatinine 71 and 2.23, which is new for her. Troponin 0.375 and 0.420. Her EKG revealed a sinus mechanism with a normal axis and intervals. Nonspecific ST-T wave changes. Her chest x-ray shows no acute infiltrate. IMPRESSION: 1. Elevation of the troponin, most likely representing a type 2 event. There is no evidence of myocardial infarction by symptoms or by EKG changes. Could be troponin elevation related to her urinary tract infection and her acute kidney injury. 2. Multiple myeloma. 3. Renal failure, new. 4. History of smoking. 5. Hyperlipidemia. RECOMMENDATION: From the cardiac standpoint, I will initiate IV fluid. I will obtain echocardiogram with Doppler. I will review the results of the workup that was done by Dr. Richardson in the past and depending on her progress further recommendations will be made. I have discussed those findings with both of her daughters. Thank you for this consult. We will follow with you. MMODL / IJN: [id number] /
[2019-01-21] MEDS ORDERED: MD COMMUNICATION TO PHARMACY 1 EACH MISC PO PRN (19:10)
[2019-01-21] MEDS ORDERED: CEFEPIME 2 GM in SODIUM CHLORIDE 0.9% 100 ML IVPB ONE (19:30)
[2019-01-21] MEDS: HEPARIN SODIUM,PORCINE 5,000 UNIT/ML 1 ML VIAL SQ SCH (20:43)
[2019-01-21] MEDS ORDERED: DRONABINOL 2.5 MG CAP PO SCH (21:00)
--- NOTE | 2019-01-21 23:51 | P.CONS ---
History of Present Illness - Reason for Consult Consult date: 01/21/19 - Chief Complaint Altered mental status - History of Present Illness 73-year-old female who has a very extensive past medical history, significantly with multiple myeloma that was first detected several years ago. 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 When there was some change of her status she was seen at an outside facility including the [facility] and outside tertiary hospital. She was noted to have increasing proteinuria and consequently renal biopsy was performed reveal evidence of amyloidosis related to her myeloma. She was initiated to therapy and most recently he has received Velcade. There have been some difficulties and the plan was to change her to an immunotherapy based regimens but she has yet to start. The daughter brings her to hospital with a significant change of her status. She relates that her mother does live independently but there is a caregiver in the home 4 days per week. There apparently is some work being done in the bathroom. It appears that the patient became confused and was in the room it was under construction and the ladder fell on her. She then meandered about the house and ended up falling. She was confused and ill and subsequently was brought in the hospital. There was evidence of significant leukocytosis and concerns to sepsis and consult was requested. She been seen by neurology and thought to have toxic metabolic encephalopathy. Review of Systems ROS unobtainable: due to mental status Past Medical History Past Medical History: Cancer, Hyperlipidemia, Osteoarthritis (OA), Thyroid Disorder Additional Past Medical History / Comment(s): osteoporosis, MULTIPLE MYELOMA History of Any Multi-Drug Resistant Organisms: None Reported Past Surgical History: Appendectomy, Hysterectomy Past Anesthesia/Blood Transfusion Reactions: Motion Sickness Past Psychological History: No Psychological Hx Reported Additional Psychological History / Comment(s): and lives independently. Daughter lives about an hour away. Has a caregiver in house for 7 days helps with meals and shopping. When caregiver and her present family is quite sure that she is not eating and drinking well. Has a history of falls. He has not had this type of the exact reaction in the past. Smoking Status: Former smoker Past Alcohol Use History: None Reported Past Drug Use History: None Reported - Past Family History Mother Family Medical History: Cancer Father Family Medical History: Cancer Medications and Allergies Home Medications and Allergies Comment(s): Current Medications Atorvastatin Calcium (Lipitor) 40 mg PO DAILY [facility] Last Admin: 01/21/19 13:33 Dose: Not Given Documented by: Famotidine (Pepcid) 20 mg IV DAILY [facility] Last Admin: 01/21/19 12:29 Dose: Not Given Documented by: Heparin Sodium (Porcine) (Heparin) 5,000 unit SQ Q12HR [facility] Last Admin: 01/21/19 20:43 Dose: 5,000 unit Documented by: Acyclovir Sodium 540 mg/ (Sodium Chloride) 110.8 mls @ 100 mls/hr IVPB Q24H [facility] Last Admin: 01/21/19 14:01 Dose: 100 mls/hr Documented by: Cefepime HCl 1 gm/ Sodium (Chloride) 50 mls @ 100 mls/hr IVPB Q24H [facility] Levothyroxine Sodium (Synthroid) 75 mcg PO DAILY@0630 [facility] Midodrine (Proamatine) 2.5 mg PO AC-TID [facility] Last Admin: 01/21/19 16:29 Dose: Not Given Documented by: Ondansetron HCl (Zofran) 4 mg PO Q12HR PRN PRN Reason: Nausea Home Medications Medication Instructions Recorded Confirmed Type Levothyroxine Sodium [Synthroid] 75 mcg PO DAILY 01/11/14 01/21/19 History Midodrine HCl [ProAmantine] 2.5 mg PO TID 09/23/18 01/21/19 History valACYclovir [Valtrex] 500 mg PO TID 09/23/18 01/21/19 History Ondansetron [Zofran] 4 mg PO Q12HR PRN 10/01/18 01/21/19 History Atorvastatin Calcium [Lipitor] 40 mg PO DAILY 01/21/19 01/21/19 History Dexamethasone 4 mg PO BID 01/21/19 01/21/19 History Non-Formulary Drug [Non Formulary 1 each IV Q7D 01/21/19 01/21/19 History Drug] Non-Formulary Drug [Non Formulary 1 each IV Q7DAYS 01/21/19 01/21/19 History Drug] Non-Formulary Drug [Non Formulary 1 each IV Q7DAYS 01/21/19 01/21/19 History Drug] Potassium Chloride [Klor-Con 10] 10 meq PO DAILY 01/21/19 01/21/19 History Torsemide [Demadex] 20 mg PO DAILY 01/21/19 01/21/19 History Allergies Allergy/AdvReac Type Severity Reaction Status Date / Time Iodinated Contrast- Oral and Allergy Nausea & Verified 01/21/19 06:55 IV Dye Vomiting, [Iodinated Contrast Media - headache IV Dye] iohexol [From Myelo-Kit] Allergy Unknown Verified 01/21/19 06:55 Latex, Natural Rubber Allergy Unknown Verified 01/21/19 06:55 sulfamethoxazole Allergy Rash/Hives Verified 01/21/19 06:55 [From Bactrim] trimethoprim [From Bactrim] Allergy Rash/Hives Verified 01/21/19 06:55 cefdinir AdvReac Unknown Verified 01/21/19 06:55 ciprofloxacin [From Cipro] AdvReac severe Verified 01/21/19 06:55 constipation methocarbamol [From Robaxin] AdvReac dizzy Verified 01/21/19 06:55 Sulfa (Sulfonamide AdvReac Unknown Verified 01/21/19 06:55 Antibiotics) Physical Exam Vitals: Vital Signs Temp Pulse Pulse Resp BP BP Pulse Ox 01/21/19 20:32 98.1 F 85 16 125/63 98 01/21/19 15:35 97.5 F L 87 18 129/74 98 01/21/19 12:00 97.7 F 76 16 117/68 93 L 01/21/19 05:47 88 18 110/88 99 01/21/19 02:59 97.6 F 89 19 150/87 98 Intake and Output 01/21/19 01/21/19 01/21/19 06:59 14:59 22:59 Intake Total 0 Balance 2120 Intake: Amount of Fluid Infused ( 2000 ml) Oral 120 Other: Voiding Method Incontinent Bedpan Weight 54.431 kg HEENT: Anicteric conjunctiva are pale but moist nasal mucosa grossly intact without significant lesions, there is no thrush. Neck: The neck is supple without significant lymphadenopathy or thyromegaly. Lungs: Symmetrical air entry few crackles no bronchial sounds Heart: Irregular with a positive S4 There is no significant murmur click or rub, PMI was nondisplaced. Abdomen: Positive bowel sounds soft and nontender without palpable masses or organomegaly. There was no guarding or rebound. Extremities: The upper extremities have evidence of the multiple sites of ecchymosis hands and especially the right forearm possibly from the recent fall or injury from a ladder. She is evidence of ecchymosis also on the right forehead right shoulder left hip, lower extremities have some chronic edema no significant open ulcerations are seen Neuro: Arousable, smiles back at the observer, most of her speech is not intelligible but when the observer says goodbye she does echo goodbye. Results CBC & Chem 7: 01/21/19 05:43 01/21/19 04:23 Labs: Abnormal Lab Results - Last 24 Hours (Table) 01/21/19 01/21/19 01/21/19 Range/Units 04:23 04:23 05:43 WBC 20.7 H (3.8-10.6) k/uL RBC 2.47 L (3.80-5.40) m/uL Hgb 9.4 L (11.4-16.0) gm/dL Hct 27.2 L (34.0-46.0) % MCV 110.2 H D (80.0-100.0) fL MCH 38.0 H (25.0-35.0) pg RDW 18.6 H (11.5-15.5) % Neutrophils # 19.2 H (1.3-7.7) k/uL Lymphocytes # 0.5 L (1.0-4.8) k/uL Macrocytosis Marked A APTT (22.0-30.0) sec Chloride 113 H (98-107) mmol/L Carbon Dioxide 19 L (22-30) mmol/L BUN 71 H (7-17) mg/dL Creatinine 2.23 H (0.52-1.04) mg/dL Calcium 7.5 L (8.4-10.2) mg/dL AST 52 H (14-36) U/L Troponin I 0.357 H* (0.000-0.034) ng/mL Total Protein 4.1 L (6.3-8.2) g/dL Albumin 2.2 L (3.5-5.0) g/dL Urine Protein (Negative) Urine Glucose (UA) (Negative) Urine Blood (Negative) Urine WBC (0-5) /hpf Amorphous Sediment (None) /hpf Urine Bacteria (None) /hpf Hyaline Casts (0-2) /lpf Urine Mucus (None) /hpf 01/21/19 01/21/19 01/21/19 Range/Units 05:43 07:25 09:20 WBC (3.8-10.6) k/uL RBC (3.80-5.40) m/uL Hgb (11.4-16.0) gm/dL Hct (34.0-46.0) % MCV (80.0-100.0) fL MCH (25.0-35.0) pg RDW (11.5-15.5) % Neutrophils # (1.3-7.7) k/uL Lymphocytes # (1.0-4.8) k/uL Macrocytosis APTT 17.9 L (22.0-30.0) sec Chloride (98-107) mmol/L Carbon Dioxide (22-30) mmol/L BUN (7-17) mg/dL Creatinine (0.52-1.04) mg/dL Calcium (8.4-10.2) mg/dL AST (14-36) U/L Troponin I 0.420 H* (0.000-0.034) ng/mL Total Protein (6.3-8.2) g/dL Albumin (3.5-5.0) g/dL Urine Protein 4+ H (Negative) Urine Glucose (UA) 3+ H (Negative) Urine Blood Moderate H (Negative) Urine WBC 7 H (0-5) /hpf Amorphous Sediment Occasional H (None) /hpf Urine Bacteria Rare H (None) /hpf Hyaline Casts 3 H (0-2) /lpf Urine Mucus Rare H (None) /hpf Microbiology - Last 24 Hours (Table) 01/21/19 14:02 Urine Culture - Preliminary Urine,Voided Laboratory Results WBC 20.7 k/uL (3.8-10.6) H 01/21/19 05:43 RBC 2.47 m/uL (3.80-5.40) L 01/21/19 05:43 Hgb 9.4 gm/dL (11.4-16.0) L 01/21/19 05:43 Hct 27.2 % (34.0-46.0) L 01/21/19 05:43 MCV 110.2 fL (80.0-100.0) H D 01/21/19 05:43 MCH 38.0 pg (25.0-35.0) H 01/21/19 05:43 MCHC 34.5 g/dL (31.0-37.0) 01/21/19 05:43 RDW 18.6 % (11.5-15.5) H 01/21/19 05:43 Plt Count 215 k/uL (150-450) 01/21/19 05:43 Neutrophils % 93 % 01/21/19 05:43 Lymphocytes % 2 % 01/21/19 05:43 Monocytes % 4 % 01/21/19 05:43 Eosinophils % 0 % 01/21/19 05:43 Basophils % 0 % 01/21/19 05:43 Neutrophils # 19.2 k/uL (1.3-7.7) H 01/21/19 05:43 Lymphocytes # 0.5 k/uL (1.0-4.8) L 01/21/19 05:43 Monocytes # 0.8 k/uL (0-1.0) 01/21/19 05:43 Eosinophils # 0.0 k/uL (0-0.7) 01/21/19 05:43 Basophils # 0.0 k/uL (0-0.2) 01/21/19 05:43 Manual Slide Review Performed 01/21/19 05:43 Poikilocytosis (manual Present 01/21/19 05:43 Anisocytosis Slight 01/21/19 05:43 Macrocytosis Marked A 01/21/19 05:43 Fragmented RBCs Present 01/21/19 05:43 PT 9.7 sec (9.0-12.0) 01/21/19 05:43 INR 0.9 (<1.2) 01/21/19 05:43 APTT 17.9 sec (22.0-30.0) L 01/21/19 05:43 Sodium 137 mmol/L (137-145) 01/21/19 04:23 Potassium 3.8 mmol/L (3.5-5.1) 01/21/19 04:23 Chloride 113 mmol/L (98-107) H 01/21/19 04:23 Carbon Dioxide 19 mmol/L (22-30) L 01/21/19 04:23 Anion Gap 5 mmol/L 01/21/19 04:23 BUN 71 mg/dL (7-17) H 01/21/19 04:23 Creatinine 2.23 mg/dL (0.52-1.04) H 01/21/19 04:23 Est GFR (CKD-EPI)AfAm 24 (>60 ml/min/1.73 sqM) 01/21/19 04:23 Est GFR (CKD-EPI)NonAf 21 (>60 ml/min/1.73 sqM) 01/21/19 04:23 Glucose 80 mg/dL (74-99) 01/21/19 04:23 Plasma Lactic Acid Kwasi 0.8 mmol/L (0.7-2.0) 01/21/19 05:48 Calcium 7.5 mg/dL (8.4-10.2) L 01/21/19 04:23 Total Bilirubin 0.4 mg/dL (0.2-1.3) 01/21/19 04:23 AST 52 U/L (14-36) H 01/21/19 04:23 ALT 43 U/L (9-52) 01/21/19 04:23 Alkaline Phosphatase 54 U/L (38-126) 01/21/19 04:23 Ammonia <9 umol/L (<30) 01/21/19 13:53 Troponin I 0.420 ng/mL (0.000-0.034) H* 01/21/19 07:25 Total Protein 4.1 g/dL (6.3-8.2) L 01/21/19 04:23 Albumin 2.2 g/dL (3.5-5.0) L 01/21/19 04:23 TSH 2.210 mIU/L (0.465-4.680) 01/21/19 13:53 Urine Color Yellow 01/21/19 09:20 Urine Appearance Clear (Clear) 01/21/19 09:20 Urine pH 6.5 (5.0-8.0) 01/21/19 09:20 Ur Specific Randolph 1.017 (1.001-1.035) 01/21/19 09:20 Urine Protein 4+ (Negative) H 01/21/19 09:20 Urine Glucose (UA) 3+ (Negative) H 01/21/19 09:20 Urine Ketones Negative (Negative) 01/21/19 09:20 Urine Blood Moderate (Negative) H 01/21/19 09:20 Urine Nitrite Negative (Negative) 01/21/19 09:20 Urine Bilirubin Negative (Negative) 01/21/19 09:20 Urine Urobilinogen <2.0 mg/dL (<2.0) 01/21/19 09:20 Ur Leukocyte Esterase Negative (Negative) 01/21/19 09:20 Urine RBC 2 /hpf (0-5) 01/21/19 09:20 Urine WBC 7 /hpf (0-5) H 01/21/19 09:20 Ur Squamous Epith Cells <1 /hpf (0-4) 01/21/19 09:20 Amorphous Sediment Occasional /hpf (None) H 01/21/19 09:20 Urine Bacteria Rare /hpf (None) H 01/21/19 09:20 Hyaline Casts 3 /lpf (0-2) H 01/21/19 09:20 Urine Mucus Rare /hpf (None) H 01/21/19 09:20 Urine Yeast (Budding) PLIER WORKER 01/21/19 09:20 Microbiology 01/21/19 14:02 Urine,Voided Urine Culture - Preliminary Microbiology 01/21/19 14:02 Urine,Voided Urine Culture - Preliminary Assessment and Plan (1) Multiple myeloma Current Visit: Yes Status: Acute Code(s): C90.00 - MULTIPLE MYELOMA NOT HAVING ACHIEVED REMISSION SNOMED Code(s): 731634346 (2) Nephrotic syndrome Current Visit: No Status: Acute Code(s): N04.9 - NEPHROTIC SYNDROME WITH UNSPECIFIED MORPHOLOGIC CHANGES SNOMED Code(s): 76169443 (3) Renal amyloidosis Current Visit: Yes Status: Acute Code(s): E85.4 - ORGAN-LIMITED AMYLOIDOSIS; N08 - GLOMERULAR DISORDERS IN DISEASES CLASSIFIED ELSEWHERE SNOMED Code(s): 06439390 (4) Altered mental status Narrative/Plan: 73-year-old female was brought to hospital with altered mental status with what appears to be in renal home from a ladder falling on her and then having increasing confusion and having another fall. At presentation she has altered mental status and has been seen in neurology in there is concerns for toxic septic encephalopathy. She does have significant chronic kidney disease and there is any worsening there has been talk from the cardiac monitor technician of starting hemodialysis. The family is very hesitant about this commitment. At this time patient is encephalopathic there is some echolalia but is comfortable but does smile to the observer. With the patient's immunocompromise underlying sepsis as etiology of toxic encephalopathy is worsened by her chronic kidney disease. Antibiotic therapy will be altered from Levaquin because the occasional significant central nervous system toxicity deathbed exhibits. With her level of illness cefepime as utilized. Her ALLERGIES are noted which he tolerates Keflex without difficu lties. She does have a low IgG level and if she continues to have significant illness would request if hematology agrees with attempting IVIG infusion. Cultures are process which will help her further define course of antibiotics and treatment. Current Visit: Yes Status: Acute Code(s): R41.82 - ALTERED MENTAL STATUS, UNSPECIFIED SNOMED Code(s): 907470732
[2019-01-22 06:24] LABS: Anisocytosis Slight; Basophils % (A) 0 %; Eosinophils % (A) 0 %; HCT 31.6 % (34.0-46.0); HGB 10.2 gm/dL (11.4-16.0); Lymphocytes # (A) 0.5 k/uL (1.0-4.8); Lymphocytes % (A) 4 %; MCH 36.8 pg (25.0-35.0); MCHC 32.1 g/dL (31.0-37.0); MCV 114.5 fL (80.0-100.0); Mean Platelet Volume 7.5; Monocytes # (A) 0.5 k/uL (0-1.0); Monocytes % (A) 4 %; Neutrophils # (A) 11.8 k/uL (1.3-7.7); Neutrophils % (A) 92 %; Platelet Count 208 k/uL (150-450); RBC 2.76 m/uL (3.80-5.40); RDW 17.9 % (11.5-15.5); WBC 12.9 k/uL (3.8-10.6)
[2019-01-22] MEDS: LEVOTHYROXINE 75 MCG TAB PO SCH (06:34)
[2019-01-22] MEDS: MIDODRINE 5 MG TAB PO SCH ×3 (06:35→20:40)
[2019-01-22 06:41] LABS: Albumin 2.2 g/dL (3.5-5.0); Calcium 8.1 mg/dL (8.4-10.2); Potassium 3.5 mmol/L (3.5-5.1); Total Bilirubin 0.5 mg/dL (0.2-1.3); Total Protein 4.1 g/dL (6.3-8.2)
[2019-01-22 06:51] LABS: Macrocytosis Marked
--- NOTE | 2019-01-22 08:53 | ECHOF ---
Referral Reason:mi MEASUREMENTS -------- HEIGHT: 162.6 cm WEIGHT: 54.4 kg BP: 117/68 RVIDd: 2.5 cm (< 3.3) IVSd: 1.0 cm (0.6 - 1.1) LVIDd: 4.2 cm (3.9 - 5.3) LVPWd: 1.1 cm (0.6 - 1.1) IVSs: 1.5 cm LVIDs: 2.7 cm LVPWs: 1.4 cm LA Diam: 3.0 cm (2.7 - 3.8) LAESV Index (A-L): 24.32 ml/m Ao Diam: 2.7 cm (2.0 - 3.7) AV Cusp: 1.4 cm (1.5 - 2.6) MV EXCURSION: 11.280 mm (> 18.000) MV EF SLOPE: 73 mm/s (70 - 150) EPSS: 0.6 cm MV E Jc: 0.90 m/s MV DecT: 245 ms MV A Jc: 1.25 m/s MV E/A Ratio: 0.72 RAP: 5.00 mmHg RVSP: 27.64 mmHg FINDINGS -------- Sinus rhythm. This was a technically good study. The left ventricular size is normal. There is borderline concentric left ventricular hypertrophy. Overall left ventricular systolic function is normal with, an EF between 60 - 65 %. The right ventricle is normal in size. Normal LA size by volume 22+/-6 ml/m2. The right atrium is normal in size. Interatrial and interventricular septum intact. There is mild aortic valve sclerosis. [id number] mitral regurgitation is present. Mild tricuspid regurgitation present. Right ventricular systolic pressure is normal at < 35 mmHg. The pulmonic valve was not well visualized. The aortic root size is normal. Normal inferior vena cava with normal inspiratory collapse consistent with estimated right atrial pre ssure of 5 mmHg. There is no pericardial effusion. CONCLUSIONS -------- 1. Sinus rhythm. 2. This was a technically good study. 3. The left ventricular size is normal. 4. There is borderline concentric left ventricular hypertrophy. 5. Overall left ventricular systolic function is normal with, an EF between 60 - 65 %. 6. The right ventricle is normal in size. 7. Normal LA size by volume 22+/-6 ml/m2. 8. The right atrium is normal in size. 9. Interatrial and interventricular septum intact. 10. There is mild aortic valve sclerosis. 11. [id number] mitral regurgitation is present. 12. Mild tricuspid regurgitation present. 13. Right ventricular systolic pressure is normal at < 35 mmHg. 14. The pulmonic valve was not well visualized. 15. The aortic root size is normal. 16. Normal inferior vena cava with normal inspiratory collapse consistent with estimated right atrial pressure of 5 mmHg. 17. There is no pericardial effusion. BINDING CEMENTER FRENCH CORD: Liyah Pisano RDCS
[2019-01-22] MEDS ORDERED: LEVOFLOXACIN 750MG-D5W PMX 750 MG in DEXTROSE/WATER 1 150ML.BAG IVPB SCH (09:00)
[2019-01-22] MEDS: FAMOTIDINE 20 MG/2 ML VIAL IV SCH (09:10)
[2019-01-22] MEDS: HEPARIN SODIUM,PORCINE 5,000 UNIT/ML 1 ML VIAL SQ SCH ×2 (09:10→20:39)
[2019-01-22] MEDS: ATORVASTATIN 40 MG TAB PO SCH (09:10)
--- NOTE | 2019-01-22 10:50 | P.PN ---
Subjective Progress Note Date: 01/22/19 This 73-year-old female patient of Dr. Salas. Patient presented with complaints of altered mental status changes. Patient's daughter is at bedside. Per patient's daughter patient was reported last normal at 2:30 yesterday afternoon. Patient had appointment with nephrology services. From midnight pat liana[facility] life alert did drink daughter aware patient had fallen. Neighbor presented to patient's house and found patient jail dressed on the floor. Patient unable to answer any questions. Patient has a past medical history of multiple myeloma in which she follows with oncology services, hyperlipidemia, osteoarthritis, hypothyroidism, recent hip replacement and chronic kidney disease. Head CT was completed showing no acute hemorrhage, hydrocephalus or mass effect. Chest x-ray completed showing no acute cardiopulmonary process. EKG completed showing normal sinus rhythm normal EKG. Troponin slightly elevated at 0.357, 0.420 creatinine elevated at 2.23 bun 71. White blood cell elevated at 20.7. She started on Levaquin for antibiotic. Patient's antibiotics switched to IV per neurology services. At this time neurology, cardiology, oncology, nephrology and infectious disease have been consulted. All questions answered. On 01/22/2019 patient is currently resting in bed. Patient does seem more awake still confused but more verbal this AM. Family is at bedside. Antibiotics adj usted to Maxipime per infectious disease. Creatinine increasing to 2.43. At this time patient denies any specific complaints. Patient expresses that she is eager to go home. Speech eval consult placed to assess swallow Objective - Vital Signs Vital signs: Vital Signs Temp 97.7 F 01/22/19 08:00 Pulse 88 01/22/19 08:00 Resp 16 01/22/19 08:00 BP 114/67 01/22/19 08:00 Pulse Ox 97 01/22/19 08:00 Intake & Output 01/21/19 01/22/19 01/22/19 18:59 06:59 18:59 Intake Total 2120 450 50 Balance 2120 450 50 Weight 56.5 kg 56.5 kg Intake: Amount of Fluid Infused ( 2000 ml) Intake, IV Titration 450 50 Amount Cefepime 1 gm In Sodium 50 Chloride 0.9% 50 ml @ 100 mls/hr IVPB Q24H [facility] Rx# :[id number] Sodium Chloride 0.9% 1, 450 000 ml @ 75 mls/hr IV . [id number] [facility] Rx#:[id number] Oral 120 Other: Voiding Method Bedpan Bedpan Bedpan # Voids 2 - Exam Head normocephalic Neck supple Lungs clear to auscultation bilaterally no wheezing or crackles Heart regular rate and rhythm S1-S2, no rub or gallop Abdomen is soft nontender nondistended positive bowel sounds no hepatosplenomegaly Extremities no edema Neuro confused nonpurposeful speech - Labs CBC & Chem 7: 01/22/19 05:53 01/22/19 05:53 Labs: Abnormal Lab Results - Last 24 Hours (Table) 01/22/19 01/22/19 Range/Units 05:53 05:53 WBC 12.9 H (3.8-10.6) k/uL RBC 2.76 L (3.80-5.40) m/uL Hgb 10.2 L (11.4-16.0) gm/dL Hct 31.6 L (34.0-46.0) % MCV 114.5 H (80.0-100.0) fL MCH 36.8 H (25.0-35.0) pg RDW 17.9 H (11.5-15.5) % Neutrophils # 11.8 H (1.3-7.7) k/uL Lymphocytes # 0.5 L (1.0-4.8) k/uL Macrocytosis Marked A Chloride 116 H (98-107) mmol/L Carbon Dioxide 19 L (22-30) mmol/L BUN 64 H (7-17) mg/dL Creatinine 2.43 H (0.52-1.04) mg/dL Glucose 66 L (74-99) mg/dL Calcium 8.1 L (8.4-10.2) mg/dL AST 47 H (14-36) U/L Total Protein 4.1 L (6.3-8.2) g/dL Albumin 2.2 L (3.5-5.0) g/dL Microbiology - Last 24 Hours (Table) 01/21/19 08:30 Blood Culture - Preliminary Blood No Growth after 24 hours 01/21/19 07:25 Blood Culture - Preliminary Blood No Growth after 24 hours 01/21/19 14:02 Urine Culture - Preliminary Urine,Voided Assessment and Plan Assessment: 1. Altered mental status changes. Head CT completed showing no acute hemorrhage, hydrocephalus or mass effect. Neurology services are following. EEG completed showing abnormal ultrasound grams with excessive background slowing consistent with metabolic encephalopathy or other cerebral dysfunction of any cause. Ammonia less than 9. 2. Leukocytosis with possible urinary tract infection. Urine culture ordered. Blood culture ordered. Patient started on Levaquin. Infectious disease consulted. Antibiotics switched to Maxipime per infectious disease. White Blood cell improving to 12.9 3. Acute on chronic kidney disease. Creatinine elevated at 2.23 bun a 71. Nephrology services have been consulted. Normal saline at 75 4. Elevated troponin. Troponin 0.357, 0.420. Cardiology services have been consulted 2d echo ordered 5. History of multiple myeloma and amyloidosis. Patient does follow with oncology services along with Caitie. Current treatment with Cytoxan and Velcade. Oncology services have been consulted. Discussed case with oncology and he plans to hold dexamethasone at this time. Antiviral has been switched to IV 6. History of hypothyroidism continue Synthroid 7. History of hyperlipidemia 8. History of total left arthroplasty in September 2018 DVT prophylaxis heparin. GI prophylaxis Pepcid Neurology, cardiology, nephrology, oncology and infectious disease consulted PT OT consulted Speech eval consulted I performed an examination of the patient and discussed their management with the Nurse Practitioner. I have reviewed the Nurse Practitioner's notes and agree with the documented findings and plan of care
--- NOTE | 2019-01-22 12:13 | P.PN ---
Subjective Progress Note Date: 01/22/19 Principal diagnosis: Toxic-metabolic encephalopathy EEG. ID consult. Antibiotics changed. Patient asking to go home. manager of digital involved. Family also very involved and ask insightful questions. Patient has no neuro c/o. Objective - Vital Signs Vital signs: Vital Signs Temp 97.5 F L 01/22/19 11:35 Pulse 90 01/22/19 11:35 Resp 18 01/22/19 11:35 BP 127/71 01/22/19 11:35 Pulse Ox 98 01/22/19 11:35 Intake & Output 01/21/19 01/22/19 01/22/19 18:59 06:59 18:59 Intake Total 2120 450 100 Balance 2120 450 100 Weight 56.5 kg 56.5 kg Intake: Amount of Fluid Infused ( 2000 ml) Intake, IV Titration 450 50 Amount Cefepime 1 gm In Sodium 50 Chloride 0.9% 50 ml @ 100 mls/hr IVPB Q24H [facility] Rx# :[id number] Sodium Chloride 0.9% 1, 450 000 ml @ 75 mls/hr IV . [id number] [facility] Rx#:[id number] Oral 120 50 Other: Voiding Method Bedpan Bedpan Bedpan # Voids 2 - Exam Gen NAD Uncooperative MS A+Ox2 Asking repeatedly to go home Does follow some commands CN II-XII grossly intact no nystagmus Motor Normal bulk/tone No tremors GODWIN x4 Sens Intact to LT x4 Coord Not tested DTRs 2+/4 sym throughout Gait Deferred - Labs CBC & Chem 7: 01/22/19 05:53 01/22/19 05:53 Labs: Abnormal Lab Results - Last 24 Hours (Table) 01/22/19 01/22/19 Range/Units 05:53 05:53 WBC 12.9 H (3.8-10.6) k/uL RBC 2.76 L (3.80-5.40) m/uL Hgb 10.2 L (11.4-16.0) gm/dL Hct 31.6 L (34.0-46.0) % MCV 114.5 H (80.0-100.0) fL MCH 36.8 H (25.0-35.0) pg RDW 17.9 H (11.5-15.5) % Neutrophils # 11.8 H (1.3-7.7) k/uL Lymphocytes # 0.5 L (1.0-4.8) k/uL Macrocytosis Marked A Chloride 116 H (98-107) mmol/L Carbon Dioxide 19 L (22-30) mmol/L BUN 64 H (7-17) mg/dL Creatinine 2.43 H (0.52-1.04) mg/dL Glucose 66 L (74-99) mg/dL Calcium 8.1 L (8.4-10.2) mg/dL AST 47 H (14-36) U/L Total Protein 4.1 L (6.3-8.2) g/dL Albumin 2.2 L (3.5-5.0) g/dL Microbiology - Last 24 Hours (Table) 01/21/19 08:30 Blood Culture - Preliminary Blood No Growth after 24 hours 01/21/19 07:25 Blood Culture - Preliminary Blood No Growth after 24 hours 01/21/19 14:02 Urine Culture - Preliminary Urine,Voided Assessment and Plan Assessment: AMS consistent with toxic/metabolic encephalopathy due to UTI and acute on chronic renal failure Plan: -Medical management: IVF, antibiotics. Her renal function has slightly worsened today -ID consulted on patient; recs appreciated -EEG results consistent with metabolic encephalopathy; results reviewed with patient -CT head results again reviewed with patient. They are concerned about a ladder falling onto her and possibly hitting her head while she was in the bathroom at home. Main concern would be ICH, which she does not have on CT Head. Discussed the utility of MRI brain and that she would need to be sedated for this test, which we are not keen to do as it may make her mental status even worse afterwards -manager of digital and family are discussing the possibility of competency evaluation that will be a psychiatric evaluation -PT/OT/SP -DVT prophylaxis -d/w patient's family at bedside at great length about potential further neuro testing (principally MRI that we have decided to hold off) and pathophysiology and prognosis of metabolic encephalopathy. All questions answered. I do not have further inpatient neuro recs at this time. What she needs is medical management and her brain will likely recover once her infection and other major organs are functioning better. Please call with any new ?. Thank you again for this consultation. Time with Patient: Greater than 30 (Time spent in direct patient care, greater than 50% of which was spent in [id number] counseling and coordination of care: 35 minutes)
[2019-01-22] MEDS ORDERED: ALPRAZolam 0.25 MG TAB PO PRN (14:18)
--- NOTE | 2019-01-22 14:26 | P.PN ---
Subjective Progress Note Date: 01/22/19 Principal diagnosis: Multiple Myeloma Renal function mildly worsened today. No family at bedside during interaction, patient still rather confused and word jarbled. Objective - Vital Signs Vital signs: Vital Signs Temp 97.5 F L 01/22/19 11:35 Pulse 90 01/22/19 11:35 Resp 18 01/22/19 11:35 BP 127/71 01/22/19 11:35 Pulse Ox 98 01/22/19 11:35 Intake & Output 01/21/19 01/22/19 01/22/19 18:59 06:59 18:59 Intake Total 2120 450 100 Balance 2120 450 100 Weight 56.5 kg 56.5 kg Intake: Amount of Fluid Infused ( 2000 ml) Intake, IV Titration 450 50 Amount Cefepime 1 gm In Sodium 50 Chloride 0.9% 50 ml @ 100 mls/hr IVPB Q24H [facility] Rx# :[id number] Sodium Chloride 0.9% 1, 450 000 ml @ 75 mls/hr IV . [id number] [facility] Rx#:[id number] Oral 120 50 Other: Voiding Method Bedpan Bedpan Bedpan # Voids 2 - Exam Constitutional General appearance: no acute distress - EENT Eyes: EOMI, PERRLA ENT: hearing grossly normal, normal oropharynx - Neck Neck: no lymphadenopathy Thyroid: bilateral: normal size - Respiratory Respiratory: bilateral: CTA - Cardiovascular Rhythm: regular Heart sounds: normal: S1, S2 - Gastrointestinal General gastrointestinal: normal bowel sounds, soft - Integumentary Integumentary: multiple bruses from recent falls - Neurologic Neurologic: weakness - Musculoskeletal mild bilateral lower extremity edema with significantly increased leg circumference Musculoskeletal: generalized weakness, strength equal bilaterally - Psychiatric Psychiatric: confused oriented to self - Labs CBC & Chem 7: 01/22/19 05:53 01/22/19 05:53 Labs: Abnormal Lab Results - Last 24 Hours (Table) 01/22/19 01/22/19 Range/Units 05:53 05:53 WBC 12.9 H (3.8-10.6) k/uL RBC 2.76 L (3.80-5.40) m/uL Hgb 10.2 L (11.4-16.0) gm/dL Hct 31.6 L (34.0-46.0) % MCV 114.5 H (80.0-100.0) fL MCH 36.8 H (25.0-35.0) pg RDW 17.9 H (11.5-15.5) % Neutrophils # 11.8 H (1.3-7.7) k/uL Lymphocytes # 0.5 L (1.0-4.8) k/uL Macrocytosis Marked A Chloride 116 H (98-107) mmol/L Carbon Dioxide 19 L (22-30) mmol/L BUN 64 H (7-17) mg/dL Creatinine 2.43 H (0.52-1.04) mg/dL Glucose 66 L (74-99) mg/dL Calcium 8.1 L (8.4-10.2) mg/dL AST 47 H (14-36) U/L Total Protein 4.1 L (6.3-8.2) g/dL Albumin 2.2 L (3.5-5.0) g/dL Microbiology - Last 24 Hours (Table) 01/21/19 08:30 Blood Culture - Preliminary Blood No Growth after 24 hours 01/21/19 07:25 Blood Culture - Preliminary Blood No Growth after 24 hours 01/21/19 14:02 Urine Culture - Preliminary Urine,Voided Assessment and Plan Plan: Altered Mental Status. 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 - Progression, with light chain deposition is one of the major differentials, but the clinical picture is not totally specific as a change in light chain is not very marked, and there has been no abnormality in her calcium, creatinine, or CBC. - Also following with Dt. Lora at [facility] - Current treatment with Cytoxan and Velcade and recent recommendations for Daratunumab Worse Anxiety and Inability to make decisions: - Agree with Psych consult for assistance with anxiety, she has take low dose xanax at home, would like [facility] input regarding this as well. Acute Renal Insufficiency - Await further evaluation with nephrology BRANDON Ott
--- NOTE | 2019-01-22 14:31 | P.PN ---
Subjective Progress Note Date: 01/22/19 This is a pleasant 73-year-old female with known history of multiple myeloma, history of amyloid kidneys who presented with change in mental status, the family found her confused. Patient was seen in consultation by Dr. Dean, she follows with Dr. Nuñez in the office. No documented history of obstructive coronary artery disease or cardiac failure and her activity level has been stable. She had a recent total hip arthroplasty and has done well with that regard. She continues to have mild peripheral edema, however significantly improved according to the family from what her usual is. She was noted to have evidence of urinary tract infection on presentation and we were consulted because of abnormal troponins. Patient did have an echocardiogram with Doppler study performed which revealed a normal ejection fraction with moderate mitral regurg. Blood pressure today is 114/60 with a heart rate in the 80s. BUN 64 creatinine 2.4. Nephrology has been consulted. Objective - Vital Signs Vital signs: Vital Signs Temp 97.5 F L 01/22/19 11:35 Pulse 90 01/22/19 11:35 Resp 18 01/22/19 11:35 BP 127/71 01/22/19 11:35 Pulse Ox 98 01/22/19 11:35 Intake & Output 01/21/19 01/22/19 01/22/19 18:59 06:59 18:59 Intake Total 2120 450 100 Balance 2120 450 100 Weight 56.5 kg 56.5 kg Intake: Amount of Fluid Infused ( 2000 ml) Intake, IV Titration 450 50 Amount Cefepime 1 gm In Sodium 50 Chloride 0.9% 50 ml @ 100 mls/hr IVPB Q24H [facility] Rx# :[id number] Sodium Chloride 0.9% 1, 450 000 ml @ 75 mls/hr IV . [id number] [facility] Rx#:[id number] Oral 120 50 Other: Voiding Method Bedpan Bedpan Bedpan # Voids 2 - Exam PHYSICAL EXAMINATION: GENERAL: 83-year-old female, in no acute distress at the time of my examination HEENT: Head is atraumatic, normocephalic. Pupils equal, round. Sclera anicteric. Conjunctiva are clear. Mucous membranes of the mouth are moist. Neck is supple. Facial ecchymosis noted There is no elevated jugular venous pressure. No carotid bruit is heard. HEART EXAMINATION: Heart S1 S2 1 systolic ejection murmur is heard CHEST EXAMINATION: Lungs are clear to auscultation and precussion. No chest wall tenderness is noted on palpation or with deep breathing. ABDOMEN: Soft, nontender. Bowel sounds are heard. No organomegaly noted. EXTREMITIES: 2+ peripheral pulses with trace evidence of peripheral edema and no calf tenderness noted. NEUROLOGIC patient is awake, alert and oriented X2. . - Labs CBC & Chem 7: 01/22/19 05:53 01/22/19 05:53 Labs: Abnormal Lab Results - Last 24 Hours (Table) 01/22/19 01/22/19 Range/Units 05:53 05:53 WBC 12.9 H (3.8-10.6) k/uL RBC 2.76 L (3.80-5.40) m/uL Hgb 10.2 L (11.4-16.0) gm/dL Hct 31.6 L (34.0-46.0) % MCV 114.5 H (80.0-100.0) fL MCH 36.8 H (25.0-35.0) pg RDW 17.9 H (11.5-15.5) % Neutrophils # 11.8 H (1.3-7.7) k/uL Lymphocytes # 0.5 L (1.0-4.8) k/uL Macrocytosis Marked A Chloride 116 H (98-107) mmol/L Carbon Dioxide 19 L (22-30) mmol/L BUN 64 H (7-17) mg/dL Creatinine 2.43 H (0.52-1.04) mg/dL Glucose 66 L (74-99) mg/dL Calcium 8.1 L (8.4-10.2) mg/dL AST 47 H (14-36) U/L Total Protein 4.1 L (6.3-8.2) g/dL Albumin 2.2 L (3.5-5.0) g/dL Microbiology - Last 24 Hours (Table) 01/21/19 08:30 Blood Culture - Preliminary Blood No Growth after 24 hours 01/21/19 07:25 Blood Culture - Preliminary Blood No Growth after 24 hours 01/21/19 14:02 Urine Culture - Preliminary Urine,Voided Assessment and Plan Plan: Assessment and plan #1 UTI and acute kidney injury #2 multiple myeloma #3 acute renal failure #4 history of smoking #5 hyperlipidemia #6 non-MT troponin elevation, likely secondary to abnormal renal function and UTI Plan From cardiology's perspective, we would recommend to continue this patient on her current medications. We will follow her along with you now on an as-needed basis only, please don't hesitate to call with any questions. DNP note has been reviewed, I agree with a documented findings and plan of care. Patient was seen and examined.
[2019-01-22] MEDS: SODIUM CHLORIDE 0.9% 1,000 ML IV SCH (15:27)
[2019-01-22] MEDS: SODIUM CHLORIDE 0.9% IVPB SCH (15:27)
[2019-01-22] MEDS: ACYCLOVIR SODIUM IVPB SCH (15:27)
[2019-01-22] MEDS: CEFEPIME 1 GM in SODIUM CHLORIDE 0.9% 50 ML IVPB SCH (20:39)
--- NOTE | 2019-01-22 23:16 | CONS ---
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 She is being followed by Dr. Ruffin and Dr. Lora from Hematology/Oncology. Patient has been on chemotherapy. However, it appears that she has not been responding too well to chemotherapy. Patient's last creatinine was 2.2 in November of 2018. Patient's creatinine is currently 2.4 mg/dL. According to the family, the patient has not been eating well. She has also been confused. Family noticed worsening of the symptoms and therefore she was brought into the hospital. There is concern for possible UTI. However, her UA is not too impressive. She did have budding yeast. It appears that patient has been stating that she is done with treatments and does not want to pursue further care, and there has been some discussion regarding hospice as well. PAST MEDICAL HISTORY: 1. Multiple myeloma/AL amyloidosis, status post kidney biopsy in May of 2018. 2. Hyperlipidemia. 3. Osteoarthritis. 4. Hypothyroidism. PAST SURGICAL HISTORY: 1. Appendectomy. 2. Hysterectomy. SOCIAL HISTORY: Patient is a former smoker. No history of drug abuse or alcohol abuse. MEDICATIONS: Medications prior to admission included: 1. Synthroid. 2. Midodrine. 3. Valtrex. 4. Zofran. 5. Lipitor. 6. Chemotherapy. 7. Potassium. 8. Demadex. ALLERGIES: MULTIPLE. They include: 1. IV DYE. 2. BACTRIM causes rash and hives. 3. CIPRO causes severe constipation. 4. ROBAXIN causes dizziness. REVIEW OF SYSTEMS: As per HPI. Other systems negative. PHYSICAL EXAMINATION: Patient is comfortable, awake. She is not in any acute distress. Blood pressure this morning was 127/71, heart rate 90 per minute. She is afebrile. EXAMINATION OF THE HEART: S1 and S2. EXAMINATION OF LUNGS: Bilateral breath sounds are heard. ABDOMEN: Soft, non-tender. Examination of lower extremities shows trace edema bilaterally. JUNIOR NETWORK ADMINISTRATOR exam is grossly intact. Patient moving all 4 extremities. LABS: Sodium of 139, potassium 3.5, chloride 116. CO2 is 19. BUN 64, serum creatinine 2.43, hemoglobin 10.2 g/dL. UA shows protein 4+, glucose 3+, WBCs of 7, and blood is moderate. ASSESSMENT: 1. Chronic kidney disease, NKF stage IV to V, with worsening renal function. The patient had a kidney biopsy in May of 2018 which showed AL amyloidosis, for which she is maintained on chemotherapy. There is most likely a component of acute kidney injury which is mainly prerenal. Patient will be started on IV fluids, as she has not been eating or drinking much. We will repeat labs again in a.m. At this time she is not on any nephrotoxic medications. We will also maintain accurate I&O. Patient is maintained on acyclovir, which can be nephrotoxic, particularly without IV hydration. The patient will be maintained on IV fluids and I will check the dose for the current GFR. 2. Dyslipidemia. 3. Hypothyroidism, maintained on Synthroid. PLAN: Start IV fluids. Repeat labs in a.m. I have discussed with the patient's family regarding options down the road, including hospice, if patient does not want to pursue renal replacement therapy, which they feel that she will not. At this time there is no acute indication for starting dialysis, and we will reassess her on a daily basis. Thank you for this consultation. Will continue to follow the patient with you during her hospitalization. MMTOBYL / TALIAN: [id number] /
[2019-01-23 06:38] LABS: Albumin 1.9 g/dL (3.5-5.0); Calcium 7.8 mg/dL (8.4-10.2); Potassium 3.2 mmol/L (3.5-5.1); Total Bilirubin 0.3 mg/dL (0.2-1.3); Total Protein 3.7 g/dL (6.3-8.2)
[2019-01-23 06:40] LABS: Anisocytosis Slight; Basophils % (A) 0 %; Eosinophils # (A) 0.1 k/uL (0-0.7); Eosinophils % (A) 1 %; HCT 28.2 % (34.0-46.0); HGB 9.3 gm/dL (11.4-16.0); Lymphocytes # (A) 0.4 k/uL (1.0-4.8); Lymphocytes % (A) 3 %; MCH 38.4 pg (25.0-35.0); MCV 116.2 fL (80.0-100.0); Mean Platelet Volume 7.9; Monocytes # (A) 0.4 k/uL (0-1.0); Monocytes % (A) 3 %; Neutrophils # (A) 11.7 k/uL (1.3-7.7); Neutrophils % (A) 92 %; Platelet Count 206 k/uL (150-450); RBC 2.43 m/uL (3.80-5.40); RDW 18.5 % (11.5-15.5); WBC 12.8 k/uL (3.8-10.6)
[2019-01-23 06:43] LABS: Macrocytosis Marked
[2019-01-23] MEDS: MIDODRINE 5 MG TAB PO SCH ×3 (06:52→17:20)
[2019-01-23] MEDS: LEVOTHYROXINE 75 MCG TAB PO SCH (06:52)
[2019-01-23] MEDS: FAMOTIDINE 20 MG/2 ML VIAL IV SCH (07:52)
[2019-01-23] MEDS: SODIUM CHLORIDE 0.9% 1,000 ML IV SCH ×2 (07:53→20:23)
[2019-01-23] MEDS: ATORVASTATIN 40 MG TAB PO SCH (07:53)
[2019-01-23] MEDS: HEPARIN SODIUM,PORCINE 5,000 UNIT/ML 1 ML VIAL SQ SCH ×2 (08:01→20:23)
[2019-01-23] MEDS ORDERED: POTASSIUM CHLORIDE ER 20 MEQ TAB.ER PO STA (08:11)
--- NOTE | 2019-01-23 11:17 | P.PN ---
Subjective Progress Note Date: 01/23/19 This 73-year-old female patient of Dr. Salas. Patient presented with complaints of altered mental status changes. Patient's daughter is at bedside. Per patient's daughter patient was reported last normal at 2:30 yesterday afternoon. Patient had appointment with nephrology services. From midnight norm [facility] life alert did drink daughter aware patient had fallen. Neighbor presented to patient's house and found patient half-way dressed on the floor. Patient unable to answer any questions. Patient has a past medical history of multiple myeloma in which she follows with oncology services, hyperlipidemia, osteoarthritis, hypothyroidism, recent hip replacement and chronic kidney disease. Head CT was completed showing no acute hemorrhage, hydrocephalus or mass effect. Chest x-ray completed showing no acute cardiopulmonary process. EKG completed showing normal sinus rhythm normal EKG. Troponin slightly elevated at 0.357, 0.420 creatinine elevated at 2.23 bun 71. White blood cell elevated at 20.7. She started on Levaquin for antibiotic. Patient's antibiotics switched to IV per neurology services. At this time neurology, cardiology, oncology, nephrology and infectious disease have been consulted. All questions answered. On 01/22/2019 patient is currently resting in bed. Patient does seem more awake still confused but more verbal this AM. Family is at bedside. Antibiotics adj usted to Maxipime per infectious disease. Creatinine increasing to 2.43. At this time patient denies any specific complaints. Patient expresses that she is eager to go home. Speech eval consult placed to assess swallow On 01/23/2019 patient is resting comfortably in bed. Family at bedside. Speech remains garbled. Creatinine improving to 2.31 and bun 63. Nephrology services are following. She was evaluated by pathology recommending regular diet. Patient denies any specific complaints. Objective - Vital Signs Vital signs: Vital Signs Temp 98.1 F 01/23/19 08:00 Pulse 84 01/23/19 08:00 Resp 16 01/23/19 08:00 BP 140/63 01/23/19 08:00 Pulse Ox 99 01/23/19 08:00 Intake & Output 01/22/19 01/23/19 01/23/19 18:59 06:59 18:59 Intake Total 200 560 560 Output Total 500 Balance 200 60 560 Weight 56.5 kg 51.5 kg Intake: Intake, IV Titration 150 560 560 Amount Acyclovir Sodium 540 mg 100 In Sodium Chloride 0.9% 100 ml @ 100 mls/hr IVPB Q24H [facility] Rx#:[id number] Cefepime 1 gm In Sodium 50 Chloride 0.9% 50 ml @ 100 mls/hr IVPB Q24H [facility] Rx# :[id number] Sodium Chloride 0.9% 1, 560 560 000 ml @ 70 mls/hr IV . [id number] [facility] Rx#:[id number] Oral 50 Output: Urine 500 Other: Voiding Method Bedpan Bedpan Bedpan - Exam Head normocephalic Neck supple Lungs clear to auscultation bilaterally no wheezing or crackles Heart regular rate and rhythm S1-S2, no rub or gallop Abdomen is soft nontender nondistended positive bowel sounds no hepatosplenomegaly Extremities no edema Neuro confused nonpurposeful speech - Labs CBC & Chem 7: 01/23/19 05:42 01/23/19 05:42 Labs: Abnormal Lab Results - Last 24 Hours (Table) 01/23/19 01/23/19 Range/Units 05:42 05:42 WBC 12.8 H (3.8-10.6) k/uL RBC 2.43 L (3.80-5.40) m/uL Hgb 9.3 L (11.4-16.0) gm/dL Hct 28.2 L (34.0-46.0) % MCV 116.2 H (80.0-100.0) fL MCH 38.4 H (25.0-35.0) pg RDW 18.5 H (11.5-15.5) % Neutrophils # 11.7 H (1.3-7.7) k/uL Lymphocytes # 0.4 L (1.0-4.8) k/uL Macrocytosis Marked A Potassium 3.2 L (3.5-5.1) mmol/L Chloride 117 H (98-107) mmol/L Carbon Dioxide 20 L (22-30) mmol/L BUN 63 H (7-17) mg/dL Creatinine 2.31 H (0.52-1.04) mg/dL Calcium 7.8 L (8.4-10.2) mg/dL Total Protein 3.7 L (6.3-8.2) g/dL Albumin 1.9 L (3.5-5.0) g/dL Microbiology - Last 24 Hours (Table) 01/21/19 08:30 Blood Culture - Preliminary Blood No Growth after 48 hours 01/21/19 07:25 Blood Culture - Preliminary Blood No Growth after 48 hours 01/21/19 14:02 Urine Culture - Final Urine,Voided Assessment and Plan Assessment: 1. Altered mental status changes. Head CT completed showing no acute hemorrhage, hydrocephalus or mass effect. Neurology services are following. EEG completed showing abnormal ultrasound grams with excessive background slowing consistent with metabolic encephalopathy or other cerebral dysfunction of any cause. Ammonia less than 9. Per neurology discussion was held with family about further testing including MRI decided to hold off. 2. Leukocytosis with possible urinary tract infection. Urine culture ordered. Blood culture ordered. Patient started on Levaquin. Infectious disease consulted. Antibiotics switched to Maxipime per infectious disease. White Blood cell improving to 12.8 3. Acute on chronic kidney disease stage IV. Creatinine elevated at 2.23 bun a 71. Nephrology services have been consulted. Normal saline at 75. 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 Elevated troponin. Troponin 0.357, 0.420. Per cardiology troponin likely secondary to abnormal renal function urinary tract infection 5. History of multiple myeloma and amyloidosis. Patient does follow with oncology services along with Caitie. Current treatment with Cytoxan and Velcade. Oncology services have been consulted. Discussed case with oncology and he plans to hold dexamethasone at this time. Antiviral has been switched to IV 6. History of hypothyroidism continue Synthroid 7. History of hyperlipidemia 8. History of total left arthroplasty in September 2018 DVT prophylaxis heparin. GI prophylaxis Pepcid Neurology, cardiology, nephrology, oncology and infectious disease consulted PT OT consulted I performed an examination of the patient and discussed their management with the Nurse Practitioner. I have reviewed the Nurse Practitioner's notes and agree with the documented findings and plan of care
[2019-01-23] MEDS: ACYCLOVIR SODIUM IVPB SCH (11:57)
[2019-01-23] MEDS: SODIUM CHLORIDE 0.9% IVPB SCH (11:57)
--- NOTE | 2019-01-23 13:12 | P.PN ---
Subjective Progress Note Date: 01/23/19 Principal diagnosis: Toxic-metabolic encephalopathy Again asking to go home. Declines further neuro testing. Getting antibiotic for infection. Renal function a little better. No other neuro c/o. Objective - Vital Signs Vital signs: Vital Signs Temp 98.4 F 01/23/19 12:00 Pulse 87 01/23/19 12:00 Resp 16 01/23/19 12:00 BP 116/58 01/23/19 12:00 Pulse Ox 100 01/23/19 12:00 Intake & Output 01/22/19 01/23/19 01/23/19 18:59 06:59 18:59 Intake Total 200 560 560 Output Total 500 Balance 200 60 560 Weight 56.5 kg 51.5 kg Intake: Intake, IV Titration 150 560 560 Amount Acyclovir Sodium 540 mg 100 In Sodium Chloride 0.9% 100 ml @ 100 mls/hr IVPB Q24H [facility] Rx#:[id number] Cefepime 1 gm In Sodium 50 Chloride 0.9% 50 ml @ 100 mls/hr IVPB Q24H [facility] Rx# :[id number] Sodium Chloride 0.9% 1, 560 560 000 ml @ 70 mls/hr IV . [id number] [facility] Rx#:[id number] Oral 50 Output: Urine 500 Other: Voiding Method Bedpan Bedpan Bedpan - Exam Gen NAD More cooperative today MS A+Ox2 Asking repeatedly to go home Does follow some commands CN II-XII grossly intact no nystagmus Motor Normal bulk/tone No tremors GODWIN x4 Sens Intact to LT x4 Coord Not tested DTRs 2+/4 sym throughout Gait Deferred - Labs CBC & Chem 7: 01/23/19 05:42 01/23/19 05:42 Labs: Abnormal Lab Results - Last 24 Hours (Table) 01/23/19 01/23/19 Range/Units 05:42 05:42 WBC 12.8 H (3.8-10.6) k/uL RBC 2.43 L (3.80-5.40) m/uL Hgb 9.3 L (11.4-16.0) gm/dL Hct 28.2 L (34.0-46.0) % MCV 116.2 H (80.0-100.0) fL MCH 38.4 H (25.0-35.0) pg RDW 18.5 H (11.5-15.5) % Neutrophils # 11.7 H (1.3-7.7) k/uL Lymphocytes # 0.4 L (1.0-4.8) k/uL Macrocytosis Marked A Potassium 3.2 L (3.5-5.1) mmol/L Chloride 117 H (98-107) mmol/L Carbon Dioxide 20 L (22-30) mmol/L BUN 63 H (7-17) mg/dL Creatinine 2.31 H (0.52-1.04) mg/dL Calcium 7.8 L (8.4-10.2) mg/dL Total Protein 3.7 L (6.3-8.2) g/dL Albumin 1.9 L (3.5-5.0) g/dL Microbiology - Last 24 Hours (Table) 01/21/19 08:30 Blood Culture - Preliminary Blood No Growth after 48 hours 01/21/19 07:25 Blood Culture - Preliminary Blood No Growth after 48 hours 01/21/19 14:02 Urine Culture - Final Urine,Voided Assessment and Plan Assessment: AMS consistent with toxic/metabolic encephalopathy due to UTI and acute on chronic renal failure Plan: -Medical management: IVF, antibiotics. Her renal function a little better but still impaired -EEG results consistent with metabolic encephalopathy -PT/OT/SP/case management -DVT prophylaxis -d/w patient and family at bedside. Patient declines further neuro testing. I do not have other inpatient neuro recs at this time. Will revisit patient prn. Please call with new ?. Thank you again for this consultation. Time with Patient: Less than 30 (Time spent in direct patient care, greater than 50% of which was spent in [id number] counseling and coordination of care: 25 minutes)
--- NOTE | 2019-01-23 15:56 | P.PN ---
Subjective Progress Note Date: 01/23/19 Principal diagnosis: Multiple Myeloma urine culture is negative with mild improvement in renal function today. She is still confused Objective - Vital Signs Vital signs: Vital Signs Temp 98.1 F 01/23/19 15:19 Pulse 93 01/23/19 15:19 Resp 18 01/23/19 15:19 BP 120/69 01/23/19 15:19 Pulse Ox 99 01/23/19 15:19 Intake & Output 01/22/19 01/23/19 01/23/19 18:59 06:59 18:59 Intake Total 626 709 2909 Output Total 500 500 Balance 200 60 620 Weight 56.5 kg 51.5 kg Intake: Intake, IV Titration 519 974 8789 Amount Acyclovir Sodium 540 mg 100 In Sodium Chloride 0.9% 100 ml @ 100 mls/hr IVPB Q24H [facility] Rx#:[id number] Cefepime 1 gm In Sodium 50 Chloride 0.9% 50 ml @ 100 mls/hr IVPB Q24H [facility] Rx# :[id number] Sodium Chloride 0.9% 1, 560 1120 000 ml @ 70 mls/hr IV . [id number] [facility] Rx#:[id number] Oral 50 Output: Urine 500 500 Other: Voiding Method Bedpan Bedpan Bedpan - Exam Constitutional General appearance: no acute distress, still confused - EENT Eyes: EOMI, PERRLA ENT: hearing grossly normal, normal oropharynx - Neck Neck: no lymphadenopathy Thyroid: bilateral: normal size - Respiratory Respiratory: bilateral: CTA - Cardiovascular Rhythm: regular Heart sounds: normal: S1, S2 - Gastrointestinal General gastrointestinal: normal bowel sounds, soft - Integumentary Integumentary: multiple bruses from recent falls - Neurologic Neurologic: weakness - Musculoskeletal mild bilateral lower extremity edema with significantly increased leg circumference Musculoskeletal: generalized weakness, strength equal bilaterally - Psychiatric Psychiatric: confused oriented to self - Labs CBC & Chem 7: 01/23/19 05:42 01/23/19 05:42 Labs: Abnormal Lab Results - Last 24 Hours (Table) 01/23/19 01/23/19 Range/Units 05:42 05:42 WBC 12.8 H (3.8-10.6) k/uL RBC 2.43 L (3.80-5.40) m/uL Hgb 9.3 L (11.4-16.0) gm/dL Hct 28.2 L (34.0-46.0) % MCV 116.2 H (80.0-100.0) fL MCH 38.4 H (25.0-35.0) pg RDW 18.5 H (11.5-15.5) % Neutrophils # 11.7 H (1.3-7.7) k/uL Lymphocytes # 0.4 L (1.0-4.8) k/uL Macrocytosis Marked A Potassium 3.2 L (3.5-5.1) mmol/L Chloride 117 H (98-107) mmol/L Carbon Dioxide 20 L (22-30) mmol/L BUN 63 H (7-17) mg/dL Creatinine 2.31 H (0.52-1.04) mg/dL Calcium 7.8 L (8.4-10.2) mg/dL Total Protein 3.7 L (6.3-8.2) g/dL Albumin 1.9 L (3.5-5.0) g/dL Microbiology - Last 24 Hours (Table) 01/21/19 08:30 Blood Culture - Preliminary Blood No Growth after 48 hours 01/21/19 07:25 Blood Culture - Preliminary Blood No Growth after 48 hours 01/21/19 14:02 Urine Culture - Final Urine,Voided Assessment and Plan Plan: Altered Mental Status. 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 - Progression, with light chain deposition is one of the major differentials, but the clinical picture is not totally specific as a change in light chain is not very marked, and there has been no abnormality in her calcium, creatinine, or CBC. - Also following with Dr. Lora at [facility] - Current treatment with Cytoxan and Velcade and recent recommendations for Daratunumab Worse Anxiety and Inability to make decisions: - Agree with Psych consult for assistance with anxiety, she has take low dose xanax at home, would like [facility] input regarding this as well. Acute Renal Insufficiency - Await further evaluation with nephrology Hospice has been consulted to meet with family as if diaylysis is the next step they would like to avoid this. If patient and family want to continue more aggressive approach an mri of brain is recommende BRANDON Ott
[2019-01-23] MEDS ORDERED: risperiDONE 0.25 MG TAB PO PRN (16:31)
--- NOTE | 2019-01-23 16:31 | P.CN ---
Psychiatric Consult - . Consult date: 01/23/19 Consult:: 01/23/19 16:14 Allergies Allergy/AdvReac Type Severity Reaction Status Date / Time Iodinated Contrast- Oral and Allergy Nausea & Verified 01/21/19 06:55 IV Dye Vomiting, Iodinated Contrast Media - headache IV Dye iohexol From Myelo-Kit Allergy Unknown Verified 01/21/19 06:55 Latex, Natural Rubber Allergy Unknown Verified 01/21/19 06:55 sulfamethoxazole Allergy Rash/Hives Verified 01/21/19 06:55 From Bactrim trimethoprim From Bactrim Allergy Rash/Hives Verified 01/21/19 06:55 cefdinir AdvReac Unknown Verified 01/21/19 06:55 ciprofloxacin From Cipro AdvReac severe Verified 01/21/19 06:55 constipation methocarbamol From Robaxin AdvReac dizzy Verified 01/21/19 06:55 Sulfa (Sulfonamide AdvReac Unknown Verified 01/21/19 06:55 Antibiotics) Laboratory Results WBC 12.8 k/uL (3.8-10.6) H 01/23/19 05:42 RBC 2.43 m/uL (3.80-5.40) L 01/23/19 05:42 Hgb 9.3 gm/dL (11.4-16.0) L 01/23/19 05:42 Hct 28.2 % (34.0-46.0) L 01/23/19 05:42 MCV 116.2 fL (80.0-100.0) H 01/23/19 05:42 MCH 38.4 pg (25.0-35.0) H 01/23/19 05:42 MCHC 33.0 g/dL (31.0-37.0) 01/23/19 05:42 RDW 18.5 % (11.5-15.5) H 01/23/19 05:42 Plt Count 206 k/uL (150-450) 01/23/19 05:42 Neutrophils % 92 % 01/23/19 05:42 Lymphocytes % 3 % 01/23/19 05:42 Monocytes % 3 % 01/23/19 05:42 Eosinophils % 1 % 01/23/19 05:42 Basophils % 0 % 01/23/19 05:42 Neutrophils # 11.7 k/uL (1.3-7.7) H 01/23/19 05:42 Lymphocytes # 0.4 k/uL (1.0-4.8) L 01/23/19 05:42 Monocytes # 0.4 k/uL (0-1.0) 01/23/19 05:42 Eosinophils # 0.1 k/uL (0-0.7) 01/23/19 05:42 Basophils # 0.0 k/uL (0-0.2) 01/23/19 05:42 Manual Slide Review Performed 01/21/19 05:43 Poikilocytosis (manual Present 01/21/19 05:43 Anisocytosis Slight 01/23/19 05:42 Macrocytosis Marked A 01/23/19 05:42 Fragmented RBCs Present 01/21/19 05:43 PT 9.7 sec (9.0-12.0) 01/21/19 05:43 INR 0.9 (<1.2) 01/21/19 05:43 APTT 17.9 sec (22.0-30.0) L 01/21/19 05:43 Sodium 140 mmol/L (137-145) 01/23/19 05:42 Potassium 3.2 mmol/L (3.5-5.1) L 01/23/19 05:42 Chloride 117 mmol/L (98-107) H 01/23/19 05:42 Carbon Dioxide 20 mmol/L (22-30) L 01/23/19 05:42 Anion Gap 3 mmol/L 01/23/19 05:42 BUN 63 mg/dL (7-17) H 01/23/19 05:42 Creatinine 2.31 mg/dL (0.52-1.04) H 01/23/19 05:42 Est GFR (CKD-EPI)AfAm 23 (>60 ml/min/1.73 sqM) 01/23/19 05:42 Est GFR (CKD-EPI)NonAf 20 (>60 ml/min/1.73 sqM) 01/23/19 05:42 Glucose 82 mg/dL (74-99) 01/23/19 05:42 Plasma Lactic Acid Kwasi 0.8 mmol/L (0.7-2.0) 01/21/19 05:48 Calcium 7.8 mg/dL (8.4-10.2) L 01/23/19 05:42 Total Bilirubin 0.3 mg/dL (0.2-1.3) 01/23/19 05:42 AST 36 U/L (14-36) 01/23/19 05:42 ALT 39 U/L (9-52) 01/23/19 05:42 Alkaline Phosphatase 61 U/L (38-126) 01/23/19 05:42 Ammonia <9 umol/L (<30) 01/21/19 13:53 Troponin I 0.420 ng/mL (0.000-0.034) H* 01/21/19 07:25 Total Protein 3.7 g/dL (6.3-8.2) L 01/23/19 05:42 Albumin 1.9 g/dL (3.5-5.0) L 01/23/19 05:42 TSH 2.210 mIU/L (0.465-4.680) 01/21/19 13:53 Urine Color Yellow 01/21/19 09:20 Urine Appearance Clear (Clear) 01/21/19 09:20 Urine pH 6.5 (5.0-8.0) 01/21/19 09:20 Ur Specific [place] 1.017 (1.001-1.035) 01/21/19 09:20 Urine Protein 4+ (Negative) H 01/21/19 09:20 Urine Glucose (UA) 3+ (Negative) H 01/21/19 09:20 Urine Ketones Negative (Negative) 01/21/19 09:20 Urine Blood Moderate (Negative) H 01/21/19 09:20 Urine Nitrite Negative (Negative) 01/21/19 09:20 Urine Bilirubin Negative (Negative) 01/21/19 09:20 Urine Urobilinogen <2.0 mg/dL (<2.0) 01/21/19 09:20 Ur Leukocyte Esterase Negative (Negative) 01/21/19 09:20 Urine RBC 2 /hpf (0-5) 01/21/19 09:20 Urine WBC 7 /hpf (0-5) H 01/21/19 09:20 Ur Squamous Epith Cells <1 /hpf (0-4) 01/21/19 09:20 Amorphous Sediment Occasional /hpf (None) H 01/21/19 09:20 Urine Bacteria Rare /hpf (None) H 01/21/19 09:20 Hyaline Casts 3 /lpf (0-2) H 01/21/19 09:20 Urine Mucus Rare /hpf (None) H 01/21/19 09:20 Urine Yeast (Budding) CARTON LINER 01/21/19 09:20 Vital Signs Temp 98.1 F 01/23/19 15:19 Pulse 93 01/23/19 15:19 Resp 18 01/23/19 15:19 BP 120/69 01/23/19 15:19 Pulse Ox 99 01/23/19 15:19 Intake & Output 01/22/19 01/23/19 01/23/19 18:59 06:59 18:59 Intake Total 301 386 3449 Output Total 500 500 Balance 200 60 620 Weight 56.5 kg 51.5 kg Intake: Intake, IV Titration 046 658 1471 Amount Acyclovir Sodium 540 mg 100 In Sodium Chloride 0.9% 100 ml @ 100 mls/hr IVPB Q24H [facility] Rx#:[id number] Cefepime 1 gm In Sodium 50 Chloride 0.9% 50 ml @ 100 mls/hr IVPB Q24H [facility] Rx# :[id number] Sodium Chloride 0.9% 1, 560 1120 000 ml @ 70 mls/hr IV . [id number] [facility] Rx#:[id number] Oral 50 Output: Urine 500 500 Other: Voiding Method Bedpan Bedpan Bedpan IDENTIFYING DATA: This patient is a 73-year-old female who lives alone with no previous psychiatric history. HISTORY OF PRESENT ILLNESS: The patient was brought into the hospital for evaluation after patient sustained a fall at home where she lives alone and was noticed by daughter to have altered mental status. Patient was worked up and admitted for a UTI with sepsis and altered mental status. CT of the head on admission. To be negative, EKG also was negative and chest x-ray negative. Patient did have on admission electrolyte abnormalities, acute on chronic kidney injury with mildly elevated troponins. Psychiatry was consulted for "confusion" and patient was seen today at the bedside by story writer. Patient was sleeping calmly however was agreeable to speak to story writer at the bedside. Patient stephanie eared to have multiple abrasions over her face and bruises. Patient appeared to be frustrated at times and rambled nonsensically during the conversation. Patient appeared to be trying to answer story writer's questions however was frustrated and had a perseveration. Patient was unable to follow commands and simply repeated "so what". Patient was able to only give her name and was not able to answer where she is what today's date is on with the circumstances and is for her hospitalization. Patient appeared to be someone lethargic however was directable. Public Relations Consultant was unable to assess whether patient is homicidal or suicidal at this time story writer is also unable to gather whether patient is hearing any voices or having visual hallucinations at this time. Patient appeared to be reluctant to participate in further questioning and was not able to convey her mood where she had anxiety however patient did appear somewhat irritable. PAST PSYCHIATRIC HISTORY: No significant psychiatric history from EMR, patient was unable to give any history as she is a poor historian. PAST MEDICAL HISTORY: Thyroid disorder, GERD, HLP, multiple myeloma, osteoarthritis. ALLERGIES: As per EMR. CHEMICAL DEPENDENCY HISTORY: Unable to gather of this information. FAMILY PSYCHIATRIC/SUBSTANCE USE HISTORY: Unable to gather this information. SOCIAL HISTORY: Patient lives at home alone and cares for herself with her daughter's support. MENTAL STATUS EXAM: General Appearance: Patient appears to be stated age is somewhat lethargic, uncooperative. Does not follow commands. Patient appears to have multiple abrasions over her face. Behavior: Patient is calmly lying in bed at times irritable and appears to be frustrated. Speech: Patient's speech is fluent and nonpressured. Mood/Affect: Patient reports their mood is unable to be assessed, affect is congruent Suicidality/Homicidality: Unable to assess Perceptions: Unable to assess Though content/process: Patient rambles, speaks nonsensically with multiple neologisms. Memory and concentration: AOX1, patient does not follow commands and is unwilling to participate in cognitive exam. Judgment and insight: Poor IMPRESSIONS: Delirium likely secondary to toxic/metabolic cause (UTI with acute on chronic kidney injury) Possible aphasia? PLAN: -At this time patient patient does NOT meet criteria for inpatient psychiatric admission. -Patient DOES NOT have decision making capacity at this time and is unable to reason through and communicate/appreciate the risks, benefits and alternatives to treatment. -Delirium precautions recommended with patient including - avoiding use of narcotics and ROLLER CLEANER sedatives, limit anticholinergic medications when possible, frequent re-orientation, minimize use of restraints, open window shades during the day and close them at night. -Would recommend the following medication changes/additions: At this time I have discontinued the Xanax as it may be exacerbating patient's delirium. I ordered risperidone 0.25 mg PRN twice a day for acute agitation. -It may be possible that along with delirium patient does have aphasia likely secondary to a organic brain injury. Would advise to proceed with further neuro logical workup including MRI. -PT/OT advised. -Patient will need a safe disposition with likely more assistance/care at home or at another facility as patient is not able to care for herself alone. -Psychiatry will sign off at this point Thank you for the consult 01/23/19 16:17
[2019-01-23] MEDS ORDERED: ACETAMINOPHEN TAB 325 MG TAB PO PRN (17:19)
[2019-01-23] MEDS: CEFEPIME 1 GM in SODIUM CHLORIDE 0.9% 50 ML IVPB SCH (18:17)
--- NOTE | 2019-01-23 18:23 | PN ---
PROGRESS NOTE Patient is seen for followup for acute kidney injury and chronic kidney disease. She has underlying biopsy-proven renal amyloidosis and has been maintained on chemotherapy. Patient apparently has not responded very well. She continues to have worsening renal function. There was an element of most likely an acute kidney injury from volume depletion, as patient has not be eating or drinking much as outpatient. She has been maintained on IV fluids. Her serum creatinine is slightly better at 2.3 from 2.43 yesterday. Patient has had good urine output. She has been voiding. On examination, this morning, blood pressure was 140/63, heart rate of 87 per minute. She is afebrile. EXAMINATION OF THE HEART: S1 and S2. EXAMINATION OF LUNGS: Bilateral breath sounds are heard. ABDOMEN: Soft, non-tender. Examination of lower extremities shows trace edema, mainly in the feet. Labs show sodium of 140, potassium 3.2, chloride 117, BUN 63, serum creatinine 2.3. Troponin was 0.42 yesterday. ASSESSMENT: 1. Acute kidney injury, most likely prerenal, currently slightly better with IV fluids. I will continue with the IV fluids for now. 2. Hypokalemia secondary to decreased oral intake. Continue to replace. 3. Chronic kidney disease secondary to biopsy-proven amyloidosis, maintained on chemotherapy, being followed by Hematology. 4. Anemia, multifactorial. 5. Pyuria with urine culture currently negative; maintained on empiric antibiotics. 6. Dyslipidemia. PLAN: Continue the IV fluids. Repeat labs in a.m. Encourage increased oral intake. Avoid any nephrotoxic agents. As previously discussed with the patient and the family, if patient needs renal replacement therapy and if she declines dialysis, we will need to consider hospice. At this time there is no indication for renal replacement therapy. MMODL / IJN: [id number] /
[2019-01-23 19:13] LABS: Total Volume 24 Hour,Urine 2275 mls (250-2400)
[2019-01-23 19:44] LABS: Total Protein 24 Hour,Urine 13650 mg/24hr (42.0-225.0)
[2019-01-24] MEDS: LEVOTHYROXINE 75 MCG TAB PO SCH (06:25)
[2019-01-24] MEDS: MIDODRINE 5 MG TAB PO SCH (06:26)
[2019-01-24 07:35] LABS: Anisocytosis Slight; Basophils % (A) 0 %; Eosinophils # (A) 0.1 k/uL (0-0.7); Eosinophils % (A) 1 %; HCT 29.6 % (34.0-46.0); HGB 9.7 gm/dL (11.4-16.0); Lymphocytes # (A) 0.3 k/uL (1.0-4.8); Lymphocytes % (A) 2 %; MCHC 32.6 g/dL (31.0-37.0); MCV 116.5 fL (80.0-100.0); Macrocytosis Marked; Mean Platelet Volume 8.2; Monocytes # (A) 0.3 k/uL (0-1.0); Monocytes % (A) 2 %; Neutrophils # (A) 15.1 k/uL (1.3-7.7); Neutrophils % (A) 95 %; Platelet Count 196 k/uL (150-450); RBC 2.54 m/uL (3.80-5.40); RDW 18.6 % (11.5-15.5); WBC 15.9 k/uL (3.8-10.6)
[2019-01-24 07:45] LABS: Calcium 7.9 mg/dL (8.4-10.2); Potassium 3.5 mmol/L (3.5-5.1); Total Bilirubin 0.4 mg/dL (0.2-1.3)
[2019-01-24 08:38] LABS: Poikilocytosis (M) Present
[2019-01-24] MEDS: ATORVASTATIN 40 MG TAB PO SCH (08:38)
[2019-01-24] MEDS: HEPARIN SODIUM,PORCINE 5,000 UNIT/ML 1 ML VIAL SQ SCH (08:38)
[2019-01-24] MEDS ORDERED: FAMOTIDINE 20 MG TAB PO SCH (09:00)
[2019-01-24 10:28] VITALS: BP 130/62; PULSE 94; RESP 16; TEMP 98.7
--- NOTE | 2019-01-24 11:35 | PN ---
PROGRESS NOTE Patient is seen for followup for acute kidney injury on top of chronic kidney disease. She is currently maintained on IV fluids. Renal function is slightly better than on admission; however, staying at about 2.3 for the creatinine. The patient is maintained on IV fluids. She has not been eating much. This morning she is comfortable, denies any complaints. PHYSICAL EXAMINATION: On examination, blood pressure was 130/62, heart rate 94 per minute. She is afebrile. Examination of the heart S1, S2. Examination of the lungs, bilateral breath sounds are heard. Abdomen is soft, nontender. Exam of lower extremities shows trace edema. It shows no significant edema. Chronic skin changes are noted. LABS: Show sodium 143, potassium 3.5, BUN 60, serum creatinine 2.3, chloride 122, CO2 is 19, hemoglobin of 9.7 g/dL, 24 hour urine protein of 13 g. ASSESSMENT: 1. 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 2. Possible acute kidney injury prerenal kidney function is only slightly better with IV fluids. I will continue the fluids for now. Patient does not need renal replacement therapy at this time. 3. 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 4. Pyuria with negative urine cultures. 5. Dyslipidemia. 6. Hypokalemia, status post replacement. PLAN: Continue with IV fluids. No evidence of volume overload. Continue to encourage increased oral intake. Discharge planning regarding placement versus other options if patient does not want to continue with the chemotherapy. MMODL / IJN: [id number] /
--- NOTE | 2019-01-24 12:21 | P.DS ---
Providers Date of admission: 01/21/19 07:05 Expected date of discharge: 01/24/19 Attending physician: Deanna Pedraza Consults: 01/21/19 07:10 Consult Physician Routine Consulting Provider: Rafi Lu Consult Reason/Comments: altered mental status Do you want consulting provider notified?: Yes 01/21/19 08:41 Consult Physician Routine Consulting Provider: Faith Stubbs Consult Reason/Comments: Elevated Troponin Do you want consulting provider notified?: Yes 01/21/19 12:55 Consult Physician Routine Consulting Provider: Juliet Duque Consult Reason/Comments: acute kidney injury Do you want consulting provider notified?: Yes 01/21/19 13:19 Consult Physician Routine Consulting Provider: Terry Prado Consult Reason/Comments: Mental status, possible UTI history of multiple myeloma Do you want consulting provider notified?: Yes Consult Physician Routine Consulting Provider: Bill Sands Consult Reason/Comments: established patient Do you want consulting provider notified?: Yes 01/23/19 11:41 Consult Physician Routine Consulting Provider: Alexandr Ramos Consult Reason/Comments: confusion Do you want consulting provider notified?: Already Contacted Primary care physician: Alycia Salas Hospital Course: Discharge diagnosis 1. Altered mental status changes. Head CT completed showing no acute hemorrhage, hydrocephalus or mass effect. Neurology services are following. EEG completed showing abnormal ultrasound grams with excessive background slowing consistent with metabolic encephalopathy or other cerebral dysfunction of any cause. Ammonia less than 9. Per neurology discussion was held with family about further testing including MRI decided to hold off. At this time patient to be discharged home on hospice for family request 2. Leukocytosis with possible urinary tract infection. Urine culture ordered. Blood culture ordered. Patient started on Levaquin. Infectious disease consulted. Antibiotics switched to Maxipime per infectious disease. White Blood cell improving to 12.8 3. Acute on chronic kidney disease stage IV. Creatinine elevated at 2.23 bun a 71. Nephrology services have been consulted. Normal saline at 75. 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 Elevated troponin. Troponin 0.357, 0.420. Per cardiology troponin likely secondary to abnormal renal function urinary tract infection 5. History of multiple myeloma and amyloidosis. Patient does follow with oncology services along with Caitie. Current treatment with Cytoxan and Velcade. Oncology services have been consulted. Discussed case with oncology and he plans to hold dexamethasone at this time. Antiviral has been switched to IV 6. History of hypothyroidism continue Synthroid 7. History of hyperlipidemia 8. History of total left arthroplasty in September 2018 Hospital course This 73-year-old female patient of Dr. Salas. Patient presented with complaints of altered mental status changes. Patient's daughter is at bedside. Per patient's daughter patient was reported last normal at 2:30 yesterday afternoon. Patient had appointment with nephrology services. From midnight patient's life alert did drink daughter aware patient had fallen. Neighbor presented to patient's house and found patient care home dressed on the floor. Patient unable to answer any questions. Patient has a past medical history of multiple myeloma in which she follows with oncology services, hyperlipidemia, osteoarthritis, hypothyroidism, recent hip replacement and chronic kidney disease. Head CT was completed showing no acute hemorrhage, hydrocephalus or mass effect. Chest x-ray completed showing no acute cardiopulmonary process. EKG completed showing normal sinus rhythm normal EKG. Troponin slightly elevated at 0.357, 0.420 creatinine elevated at 2.23 bun 71. White blood cell elevated at 20.7. She started on Levaquin for antibiotic. Patient's antibiotics switched to IV per neurology services. At this time neurology, cardiology, oncology, nephrology and infectious disease have been consulted. All questions answered. On 01/22/2019 patient is currently resting in bed. Patient does seem more awake still confused but more verbal this AM. Family is at bedside. Antibiotics adjusted to Maxipime per infectious disease. Creatinine increasing to 2.43. At this time patient denies any specific complaints. Patient expresses that she is eager to go home. Speech eval consult placed to assess swallow On 01/23/2019 patient is resting comfortably in bed. Family at bedside. Speech remains garbled. Creatinine improving to 2.31 and bun 63. Nephrology services are following. She was evaluated by pathology recommending regular diet. Patient denies any specific complaints. On 01/24/2019 patient remains confused. Family had meeting with [facility] care at this time would like patient to be discharged home today on [facility]. Discussed case with case sealer alva. Arrangements made for patient to be DC'd home. Also discussed case with [facility] care Dir. [place] scripts for Roxanol and Ativan will be given to case sealer for discharge. I performed an examination of the patient and discussed their management with the Nurse Practitioner. I have reviewed the Nurse Practitioner's notes and agree with the documented findings and plan of care Patient Condition at Discharge: Stable Plan - Discharge Summary Discharge Rx Participant: Yes New Discharge Prescriptions: New LORazepam [Ativan] 0.5 mg PO Q6H 3 Days #12 tab MORPHINE ORAL JE CONC 20mg/mL [Roxanol Oral Soln Conc 20MG/ML] 5 mg PO Q4H PRN 3 Days #9 ml PRN Reason: Pain Continue Levothyroxine Sodium [Synthroid] 75 mcg PO DAILY Midodrine HCl [ProAmantine] 2.5 mg PO TID Non-Formulary Drug [Non Formulary Drug] 1 each IV Q7D Non-Formulary Drug [Non Formulary Drug] 1 each IV Q7DAYS Non-Formulary Drug [Non Formulary Drug] 1 each IV Q7DAYS Discontinued valACYclovir [Valtrex] 500 mg PO TID Ondansetron [Zofran] 4 mg PO Q12HR PRN PRN Reason: Nausea Potassium Chloride [Klor-Con 10] 10 meq PO DAILY Torsemide [Demadex] 20 mg PO DAILY Atorvastatin Calcium [Lipitor] 40 mg PO DAILY Dexamethasone 4 mg PO BID Discharge Medication List Levothyroxine Sodium [Synthroid] 75 mcg PO DAILY 01/11/14 [History] Midodrine HCl [ProAmantine] 2.5 mg PO TID 09/23/18 [History] Non-Formulary Drug [Non Formulary Drug] 1 each IV Q7D 01/21/19 [History] Non-Formulary Drug [Non Formulary Drug] 1 each IV Q7DAYS 01/21/19 [History] Non-Formulary Drug [Non Formulary Drug] 1 each IV Q7DAYS 01/21/19 [History] LORazepam [Ativan] 0.5 mg PO Q6H 3 Days #12 tab 01/24/19 [Rx] MORPHINE ORAL JE CONC 20mg/mL [Roxanol Oral Soln Conc 20MG/ML] 5 mg PO Q4H PRN 3 Days #9 ml 01/24/19 [Rx] Follow up Appointment(s)/Referral(s): None,Stated [REFERRING] - 1-2 days Activity/Diet/Wound Care/Special Instructions: Patient will be discharged home with [facility] hospice Discharge Disposition: HOME WITH HOSPICE
[2019-01-24] MEDS ORDERED: LORazepam 0.5 MG TAB PO STA (14:13)
--- NOTE | 2019-01-24 14:16 | P.PN ---
Subjective Progress Note Date: 01/24/19 Principal diagnosis: Multiple Myeloma plan for home hospice Objective - Vital Signs Vital signs: Vital Signs Temp 98.7 F 01/24/19 08:00 Pulse 94 01/24/19 08:00 Resp 16 01/24/19 08:00 BP 130/62 01/24/19 08:00 Pulse Ox 100 01/24/19 08:00 Intake & Output 01/23/19 01/24/19 01/24/19 18:59 06:59 18:59 Intake Total 1120 720 Output Total 500 Balance 620 720 Weight 55.5 kg Intake: Intake, IV Titration 1120 Amount Sodium Chloride 0.9% 1, 1120 000 ml @ 70 mls/hr IV . [id number] KENTRELL Rx#:[id number] Oral 0 720 Output: Urine 500 Other: Voiding Method Bedpan Bedpan Bedpan # Bowel Movements 1 - Exam Constitutional General appearance: no acute distress, still confused - EENT Eyes: EOMI, PERRLA ENT: hearing grossly normal, normal oropharynx - Neck Neck: no lymphadenopathy Thyroid: bilateral: normal size - Respiratory Respiratory: bilateral: CTA - Cardiovascular Rhythm: regular Heart sounds: normal: S1, S2 - Gastrointestinal General gastrointestinal: normal bowel sounds, soft - Integumentary Integumentary: multiple bruses from recent falls - Neurologic Neurologic: weakness - Musculoskeletal mild bilateral lower extremity edema with significantly increased leg circumference Musculoskeletal: generalized weakness, strength equal bilaterally - Psychiatric Psychiatric: confused oriented to self - Labs CBC & Chem 7: 01/24/19 06:46 01/24/19 06:46 Labs: Abnormal Lab Results - Last 24 Hours (Table) 01/22/19 01/24/19 01/24/19 Range/Units 16:50 06:46 06:46 WBC 15.9 H (3.8-10.6) k/uL RBC 2.54 L (3.80-5.40) m/uL Hgb 9.7 L (11.4-16.0) gm/dL Hct 29.6 L (34.0-46.0) % MCV 116.5 H (80.0-100.0) fL MCH 38.0 H (25.0-35.0) pg RDW 18.6 H (11.5-15.5) % Neutrophils # 15.1 H (1.3-7.7) k/uL Lymphocytes # 0.3 L (1.0-4.8) k/uL Macrocytosis Marked A Chloride 122 H (98-107) mmol/L Carbon Dioxide 19 L (22-30) mmol/L BUN 60 H (7-17) mg/dL Creatinine 2.34 H (0.52-1.04) mg/dL Glucose 108 H (74-99) mg/dL Calcium 7.9 L (8.4-10.2) mg/dL Total Protein 4.0 L (6.3-8.2) g/dL Albumin 2.0 L (3.5-5.0) g/dL U Tot Protein 24h, Calc 89310 H (42.0-225.0) mg/24hr Microbiology - Last 24 Hours (Table) 01/21/19 08:30 Blood Culture - Preliminary Blood No Growth after 72 hours 01/21/19 07:25 Blood Culture - Preliminary Blood No Growth after 72 hours Assessment and Plan Plan: Altered Mental Status. 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 - Progression, with light chain deposition is one of the major differentials, but the clinical picture is not totally specific as a change in light chain is not very marked, and there has been no abnormality in her calcium, creatinine, or CBC. - Also following with Dr. Lora at [facility] - Current treatment with Cytoxan and Velcade and recent recommendations for Daratunumab Worse Anxiety and Inability to make decisions: - Agree with Psych consult for assistance with anxiety, she has take low dose xanax at home, would like [facility] input regarding this as well. Acute Renal Insufficiency - Await further evaluation with nephrology Hospice has been consulted to meet with family as if diaylysis is the next step they would like to avoid this. If patient and family want to continue more aggressive approach an mri of brain is recommended - Patient and family have decided on home hospice care and will be discharged with home hospice today - Discussed the goals of care and hospice options with patient and daughter and caregiver. BRANDON Ott
[2019-01-24 14:28] VITALS: BMI 20.9
== END 2019-01-24 15:26 | disposition hospice, home (50) | DRG 682 ==
LOC: EC 02:54 → 3SCARD 07:05
PROVIDERS: ADMIT Internal Medicine; ATTEND Internal Medicine
DX: N17.9 Acute kidney failure, unspecified (principal); G92 Toxic encephalopathy; I21.A1 Myocardial infarction type 2; N39.0 Urinary tract infection, site not specified; C90.00 Multiple myeloma not having achieved remission; E85.81 Light chain (AL) amyloidosis; R47.01 Aphasia; N18.5 Chronic kidney disease, stage 5; D64.9 Anemia, unspecified; E03.9 Hypothyroidism, unspecified; E78.5 Hyperlipidemia, unspecified; E86.9 Volume depletion, unspecified; E87.6 Hypokalemia; I34.0 Nonrheumatic mitral (valve) insufficiency; M81.0 Age-related osteoporosis without current pathological fracture; N04.9 Nephrotic syndrome with unspecified morphologic changes; Z51.5 Encounter for palliative care; Z66 Do not resuscitate; Z79.890 Hormone replacement therapy; Z79.899 Other long term (current) drug therapy; Z87.891 Personal history of nicotine dependence; Z90.710 Acquired absence of both cervix and uterus; Z91.81 History of falling; F41.9 Anxiety disorder, unspecified; Z88.2 Allergy status to sulfonamides; Z88.8 Allergy status to other drugs, medicaments and biological substances; Z88.1 Allergy status to other antibiotic agents; Z91.041 Radiographic dye allergy status; Z91.040 Latex allergy status; Z60.2 Problems related to living alone; Z96.642 Presence of left artificial hip joint
CPT/HCPCS: 36415; 70450; 71045; 80053; 81001; 81050; 82140; 83605; 83883; 84156; 84443; 84484; 85025; 85610; 85730; 87040; 87086; 93005; 93306; 95816; 96360; 96361; 99291